=== PATIENT | male | born 1970 | race Caucasian/White ===

== ENCOUNTER → 2019-10-01 00:01 | Outpatient (BNVA) | payer SELFPAY | PROVIDERS: Family Provider Nurse Practitioner Family; PCP Nurse Practitioner Family; Visit Provider Registered Nurse | DX: E11.65 Type 2 diabetes mellitus with hyperglycemia (principal); I10 Essential (primary) hypertension | CPT/HCPCS: 83036 ==

== ENCOUNTER 2019-11-11 00:26 | Inpatient (IN) | payer SELFPAY ==
[2019-11-11] VITALS (24 sets, daily range): BP systolic 103–153; BP diastolic 50–113; PULSE 70–86; RESP 9–19; TEMP 36.4–37.1; O2SAT 93–96; BMI 35.6
--- NOTE | 2019-11-11 00:53 | PC.NURSE ---
Patient arrived to the floor via EMS from [facility]. Dr. Dowd notified of patient's arrival. Patient is not complaining of any pain at this time. Patient is on room air. Monitor shows SR with PVCs. Patient has been oriented to his room and has call light within reach. Patient is alert and oriented x4 and ambulatory.
--- NOTE | 2019-11-11 00:56 | USCV_ITS ---
Pierre Powellard Age: 49 Gender: M : 1970 Exam Date: 11/11/2019 07:26 Ordering Phys: Jessi Dowd MD Technologist: Errol Ribeiro [place] [facility] [place]: CHEST PAIN BP: 153 / 94 HR: 81 Rhythm: Sinus Technical Quality: Adequate MEASUREMENTS (Male / Female) Normal Values 2D ECHO LV Diastolic Diameter PLAX 4.7 cm 4.2 - 5.9 / 3.9 - 5.3 cm LV Systolic Diameter PLAX 3.7 cm IVS Diastolic Thickness 1.0 cm 0.6 - 1.0 / 0.6 - 0.9 cm IVS Systolic Thickness 1.6 cm LVPW Diastolic Thickness 1.1 cm 0.6 - 1.0 / 0.6 - 0.9 cm LVPW Systolic Thickness 1.4 cm LVOT Diameter 2.0 cm LV Ejection Fraction 2D Teich 42.1 % LV Ejection Fraction MOD 2C 57.0 % LV Ejection Fraction 2C AL 57.5 % LA Diameter 4.1 cm LA Width 4.6 cm LA Height 5.9 cm RA Width 3.5 cm RA Height 4.8 cm Aorta at Sinotubular Diameter 2.7 cm M-MODE LV Diastolic Diameter MM 5.1 cm 4.2 - 5.9 / 3.9 - 5.3 cm LV Systolic Diameter MM 4.2 cm LV Ejection Fraction MM Teich 36.1 % IVS Diastolic Thickness MM 1.1 cm 0.6 - 1.0 / 0.6 - 0.9 cm IVS Systolic Thickness MM 1.7 cm LVPW Diastolic Thickness MM 1.4 cm 0.6 - 1.0 / 0.6 - 0.9 cm LVPW Systolic Thickness MM 1.7 cm RV Diastolic Diameter MM 1.4 cm Aortic Annulus Diameter 3.9 cm LA Ao Ratio MM 1.0 MV E Point Septal Separation 1.7 cm DOPPLER AV Peak Velocity 127.0 cm/s LVOT Peak Velocity 93.0 cm/s AV Area Cont Eq vti 2.0 cm squared AV Area Cont Eq pk 2.4 cm squared MV Area PHT 5.0 cm squared Mitral E to A Ratio 1.1 MV E' Velocity 6.0 cm/s Mitral E to MV E' Ratio 17.1 Mitral E to LV E' Lateral Ratio 17.1 Mitral E to LV E' Septal Ratio 17.1 TR Peak Velocity 123.0 cm/s TR Peak Gradient 6.0 mmHg TV Peak E Velocity 85.0 cm/s Right Atrial Pressure 3.0 mmHg Pulmonary Artery Systolic Pressu 9.1 mmHg PV Peak Velocity 75.0 cm/s FINDINGS Left Ventricle Normal left ventricular size and systolic function, EF 50 %. Mild diffuse hypokinesia of the inferolateral wall segment. Relative hypokinesia of the basal septum.Grade I/IV diastolic dysfunction (abnormal relaxation filling pattern), normal to mildly elevated filling pressures. Right Ventricle Normal right ventricular size and systolic function. Right Atrium Normal right atrial size. Left Atrium Mildly increased left atrial size. Mitral Valve Thickened mitral valve. Mild mitral valve regurgitation. Aortic Valve No gross abnormalities noted Tricuspid Valve No gross abnormalities noted Pulmonic Valve No gross abnormalities noted Pericardium Normal pericardium without effusion. Aorta Normal ascending aorta dimension. CONCLUSIONS Normal left ventricular size and systolic function, EF 50 %. Mild diffuse hypokinesia of the inferolateral wall segment. Relative hypokinesia of the basal septum.Grade I/IV diastolic dysfunction (abnormal relaxation filling pattern), normal to mildly elevated filling pressures. Mildly increased left atrial size. Thickened mitral valve. Mild mitral valve regurgitation. There is no pericardial effusion. There are no intracardiac masses. No previous study is available for comparison. Dr Shavonne Li MD [facility] (Electronically Signed) Final Date: 11 November 2019 13:26 S
--- NOTE | 2019-11-11 00:56 | ECG_ITS ---
Measurements Intervals [place] Rate: 78 P: -15 AR: 151 QRS: 16 QRSD: 104 T: 100 QT: 368 QTc: 422 SINUS RHYTHM PROBABLE INFERIOR MYOCARDIAL INFARCTION [35 ms Q WAVE IN II/aVF], PROBABLY OLD No previous ECG available for comparison Electronically Signed On 11-11-2019 20:14:40 CDT by Ana Lindo M.D. [id number]
[2019-11-11] MEDS: sodium chloride 0.45% 1,000 ML 75 ML IV (01:43)
[2019-11-11 01:49] LABS: Troponin(5th) Baseline 189 ng/mL (0-15)
[2019-11-11 01:51] LABS: NT Pro B Type Natriuretic Pept 487 pg/mL (0-125)
--- NOTE | 2019-11-11 02:56 | ECG_ITS ---
Measurements Intervals [place] Rate: 86 P: 44 KS: 153 QRS: 4 QRSD: 101 T: 95 QT: 356 QTc: 427 SINUS RHYTHM WITH OCCASIONAL VENTRICULAR PREMATURE COMPLEXES PROBABLE INFERIOR MYOCARDIAL INFARCTION [35 ms Q WAVE IN II/aVF], PROBABLY OLD No previous ECG available for comparison Electronically Signed On 11-11-2019 20:18:52 CDT by Ana Lindo M.D. [id number]
--- NOTE | 2019-11-11 03:17 | P.HP_ITS ---
Providers/Chief Complaint Admitting Physician: Jessi Dowd MD Chief Complaint: elevated troponins History of Present Illness Irving Powell is a 49 year old male who presented to the emergency room at [facility] with a chief complaint of chest pain. For the last 3 weeks or so he has been having intermittent episodes of chest pain located in the center of his chest off and on. He works at the [email or web address] and has noticed pain at work that improves with resting. He also noticed some pain when he was riding around on [address] and other forms of exertion. Pain has generally resolved with rest. This evening patient was awakened from sleep with severe pain again. This time he was diaphoretic, nausea, had an episode of vomiting and noted palpitations which she described as his heart beating really hard. Denies any syncope. Pain radiated up into his teeth causing discomfort there. It was severe enough that he presented to the ER for evaluation. Initial EKG showed nonspecific changes. Baseline troponin at that facility was 178. Patient received aspirin and anticoagulation. He does have a prescription for sildenafil but he had not had any since November 03. He is not required any nitroglycerin this evening. He requested to be transferred to [facility] for further care and evaluation by cardiology. On arrival here, EKG was unchanged. Patient's primary risk factors include diabetes, obesity, hypertension. It sounds like he may have been diagnosed with high cholesterol in the past. His diabetes has been untreated lately. He has not tolerated Jardiance, glyburide, Januvia and metformin. Various side effects and issues. He also forgets to take medications frequently. His primary care provider attempted to start him on 1 of the weekly injections but it cost too much for him. He reports trying to follow diabetic diet. He chews tobacco. His mother has a history of coronary artery disease with several stents. Review of Systems Const: Denies: fever, chills or change in weight Eyes: Reports: blurry vision (sometimes); Denies: change in vision ENMT: Denies: throat pain or nasal discharge Card: Reports: chest pain, palpitations, swelling of feet/ankles and shortness of breath on exertion; Denies: syncope or shortness of breath when lying down Resp: Reports: shortness of breath; Denies: productive cough, non-productive cough or wheezing GI: Reports: nausea and vomiting; Denies: abdominal pain, diarrhea, constipation, blood in stool or black tarry stool : Denies: difficulty urinating Musc: Reports: back pain (not new) and joint pain (both knees always); Denies: joint swelling, redness or joint warmth Skin/Breast: Denies: rash or sores Neuro: Denies: headache, numbness in extremities or weakness in extremities Hen[place]/Lymph: Denies: easy bruising or easy bleeding Medications/Allergies Home Medications Medication Instructions Recorded Confirmed Last Taken Type omeprazole 20 mg PO BEDTIME 11/11/19 11/11/19 1 Day Ago History ~11/10/19 Allergies Allergy/AdvReac Type Severity Reaction Status Date / Time No Known Allergies Allergy Verified 11/11/19 00:33 Additional Medication Information Additional Medication Information: Home Medications Medication Instructions Recorded Confirmed Type hydrochlorothiazide 12.5 mg tablet 12.5 mg PO QAM 09/01/19 11/11/19 History telmisartan 80 mg tablet 80 mg PO DAILY 09/01/19 11/11/19 History sildenafil 50 mg tablet 50 - 100 mg PO DAILY PRN #15 tab 10/08/19 11/11/19 Rx omeprazole 20 mg PO BEDTIME 11/11/19 11/11/19 History PFSH Acute PFSH: Medical History (Updated 11/11/19 @ 03:52 by Jessi Dowd MD) Erectile dysfunction has sildenafil script GERD (gastroesophageal reflux disease) History of pancreatitis one time, noted when diagnosed with diabetes, no recurrance Hypertension Type 2 diabetes mellitus Family History (Updated 11/11/19 @ 03:53 by Jessi Dowd MD) Mother CAD (coronary artery disease) several stents Diabetes Denies family history of Chronic kidney disease (CKD) Social History (Updated 11/11/19 @ 03:55 by Jessi Dowd MD) Smoking and tobacco status: current every day smoker smokeless tobacco S mokeless tobacco user: chewing tobacco Alcohol intake: current Alcohol intake frequency: few times a month Substance/Drug Use: never Lives independently: Yes Supplemental PFSH Information: no surgery Vitals/I&O/Wt Last Vital Signs Temp 98.1 F 11/11/19 03:03 Pulse 75 11/11/19 03:03 Resp 13 11/11/19 03:03 BP 151/95 11/11/19 03:03 Pulse Ox 94 11/11/19 03:03 Weight last 48 hrs Weight 106.186 kg Physical Exam Const: COMMON NORMALS: no apparent distress and oriented x3 GENERAL APPEARANCE: well developed NUTRITIONAL APPEARANCE: obese centrally obese HENMT: COMMON NORMALS: normocephalic, head/scalp atraumatic and moist oral mucous membranes Eye: COMMON NORMALS: PERRL, EOMs intact bilaterally, conjunctivae normal and no scleral icterus Neck/C-Spine: COMMON NORMALS: no lymphadenopathy, supple and no JVD Resp: COMMON NORMALS: normal respiratory effort, no use of accessory muscles and clear to auscultation bilaterally Cardio: COMMON NORMALS: regular rate, regular rhythm, no gallops, no murmurs, no rub and peripheral pulses 2+ throughout GI: COMMON NORMALS: normal to inspection, nondistended, normoactive bowel sounds, soft to palpation, non-tender, no hepatosplenomegaly and no masses Back/Pelvis: COMMON NORMALS: no CVA tenderness Extremity: COMMON NORMALS: no clubbing, cyanosis or edema OTHER: Both knees with bony prominence at the proximal tibia. Left is mildly tender but no erythema or warmth noted. No bogginess noted to either knee. Neuro: COMMON NORMALS: moves all extremities and no sensory deficits noted Skin: GENERAL SKIN EXAM: no rashes or lesions noted Data : 11/11/19 03:03 Other Labs: Labs from outside facility are as follows: White count 8000, H&H 16/47, platelet count 155, 62% neutrophils and 24% lymphocytes Sodium 138, potassium 4.1, chloride 99, CO2 27, calcium 9.6, BUN 15, creatinine 1.29, glucose 255, total protein 7.7, albumin 4.7, total bilirubin 0.7, alkaline phosphatase 100, AST 22, ALT 28, lipase 38 proBNP 462 Baseline troponin at outside facility was 178 PTT was 29 Chest x-ray was interpreted by radiology at outside facility as no acute cardiopulmonary process Laboratory Tests 06/04/12 03:32 Triglycerides 324 H Cholesterol 163 LDL Cholesterol 108 HDL Cholesterol 23 L LDL/HDL Ratio 4.70 H Cholesterol/HDL Ratio 7.09 H Laboratory Tests 10/01/19 Unknown Hemoglobin A1c 9.3 H A&P Assessment and plan (1) NSTEMI (non-ST elevated myocardial infarction): Status: Acute Code(s): I21.4 - Non-ST elevation (NSTEMI) myocardial infarction (2) Hypertension: Status: Chronic Qualifiers: Hypertension type: essential hypertension Qualified Code(s): I10 - Es sential (primary) hypertension Code(s): I10 - Essential (primary) hypertension (3) Type 2 diabetes mellitus: Currently without adequate control Status: Chronic Qualifiers: Diabetes mellitus complication status: with hyperglycemia 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: without [facility] use Qualified Code(s): E11.65 - Type 2 diabetes mellitus with hyperglycemia Code(s): E11.9 - Type 2 diabetes mellitus without complications (4) GERD (gastroesophageal reflux disease): Status: Chronic Qualifiers: Esophagitis presence: esophagitis presence not specified Qualified Code(s): K21.9 - Gastro-esophageal reflux disease without esophagitis Code(s): K21.9 - Gastro-esophageal reflux disease without esophagitis (5) Nicotine dependence, chewing tobacco, uncomplicated: Status: Acute Code(s): F17.220 - Nicotine dependence, chewing tobacco, uncomplicated Additional A&P Information Admit to inpatient Follow serial cardiac enzymes Changed to Lovenox Continue aspirin Plavix load Beta-blockade Statin therapy Check lipid panel Sliding scale insulin currently, need to see what we can do to facilitate getting better controlled diabetes chronically. Cost of medications is a sig nificant issue for patient. Hemoglobin A1c was checked in September and was 9.3 so I have not repeated that this visit. Ideally needs to give up all forms of tobacco use Check echocardiogram in the morning Monitor for any arrhythmias Will consult cardiology in the morning Keep n.p.o. for possible cardiac catheterization Reviewed with patient the importance of not mixing sildenafil with nitroglycerin as combination could cause severe drop in blood pressure. He expressed understanding Supportive care otherwise Full code Plans were discussed with patient and he was given an opportunity to ask q uestions. Attestations Medical Necessity Statement*: Anticipated stay greater than 2 midnights in a patient presenting with a non-ST elevation [place] who will likely require further cardiac evaluation and initiation of new medications. Plans are as noted. 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
[2019-11-11] MEDS: enoxaparin 120 mg/0.8 mL Syringe 110 MG SUBCUT (03:31)
[2019-11-11 03:59] LABS: Alanine Aminotransferase 26 U/L (0-41); Albumin Level 4.2 g/dL (3.5-5.2); Alkaline Phosphatase 81 IU/L (40-130); Anion Gap 13.3 (5-19); Aspartate Amino Transferase 22 U/L (0-40); Blood Urea Nitrogen 15 mg/dL (6-20); Calcium 9.7 mg/dL (8.5-10.5); Carbon Dioxide 29 mmol/L (22-29); Chloride 103 mmol/L (98-107); Globulin 2.5 g/dL (1.3-4.6); Glomerular Filtration Rate 64.4 mL/min (90-130); Glucose 146 mg/dL (65-115); Magnesium 2.2 mg/dL (1.7-2.3); Osmolality Calculated 291 mOsm/kg (285-295); Potassium 4.3 mmol/L (3.5-5.1); Sodium 141 mmol/L (136-145); Total Bilirubin 0.7 mg/dL (0.15-1.2); Total Protein 6.7 g/dL (6.6-8.7)
[2019-11-11 04:02] LABS: Troponin 5 2HR 229.3 ng/mL (0-15); Troponin 5 2HR Delta 40.3 ABS# (0-10)
[2019-11-11] MEDS: clopidogrel 300 mg Tablet 600 MG PO (05:49)
[2019-11-11 06:26] LABS: Glucose Point of Care 146 mg/dL (70-110)
--- NOTE | 2019-11-11 06:56 | ECG_ITS ---
Measurements Intervals [place] Rate: 84 P: -19 SD: 152 QRS: 19 QRSD: 102 T: 101 QT: 368 QTc: 437 SINUS RHYTHM WITH OCCASIONAL VENTRICULAR PREMATURE COMPLEXES NONSPECIFIC ST & T-WAVE ABNORMALITY No previous ECG available for comparison Electronically Signed On 11-11-2019 20:19:03 CDT by Ana Lindo M.D. [id number]
[2019-11-11 07:18] LABS: Chol HDL Ratio 5.76 mg/dL (1.0-5.00); Cholesterol 167 mg/dL (0-200); HDL Cholesterol 29 mg/dL (60-100); LDL Cholesterol Calculated 74 mg/dL (50-129); LDL HDL Ratio 2.55 RATIO (0.00-3.22); Triglycerides 319 mg/dL (0-150)
--- NOTE | 2019-11-11 07:23 | P.CONIM_ITS ---
Providers/Reason For Consult Consulting Physican/Specialty*: JUAN Li MD/cardiology Reason for Consult*: Patient with chest pain and elevated troponin T Attending Physician: Jessi Dowd MD Primary Care Provider: Jonh Howe History of Present Illness History of Present Illness Irving Powell is a 49 year old male with a history of type 2 diabetes, dyslipidemia, essential benign hypertension, smoking abuse is presenting with complaints of chest pain off and on for the last 2 weeks. The patient apparently has been having episodes of chest pains with or without exertion for the last 2 weeks at least a dozen times. Each episodes will last anywhere from 5 to 20 minutes. He described it as a burning/heavy sensation in the mid substernal area radiating somewhat across the chest associated with the cold sweats, shortness of breath and some nausea. Last evening, he had an episode of severe chest pain which woke him up from sleep. The pain was radiating jaws/teeth. He may have had some associated palpitation. He also had a bout of vomiting. No other associated symptoms or radiation of pain. He has no previous history for any coronary artery disease, myocardial infarction or congestive heart failure. His diabetes is being controlled with diet alone. He was tried on Jardiance, glyburide, metformin and Januvia. Apparently he had various kinds of side effects and for that reason, was taken off these medications. He has a history of smoking abuse, 1 pack a day for 30 years also, which she quit 3 months ago. His mother had myocardial infarction in her 40s. No other relevant family history. He was initially evaluated at the [facility]. He was found to have elevated troponin T. He was started on aspirin and Lovenox. Subsequently was transferred to our facility. He was given a loading dose of Plavix. Currently he is pain-free. At the time of my examination, patient has no specific symptoms except for feeling tired and somewhat sleepy. Review of Systems Narrative: CONSTITUTIONAL: No fever or chills. Has been having easy fatigability and some amount of dyspnea on exertion. EYES: No blurring of vision or other visual disturbances lately. ENT: No hoarseness of voice, auditory disturbances or sore throat. CARDIOVASCULAR: As mentioned above. RESPIRATORY: Has a history of shortness of breath and wheezing with the smoking. Since he quit walking, significant improvement of the wheezing. GASTROINTESTINAL: No hematemesis or melena. GENITOURINARY: No dysuria or hematuria. History of impotence and has been using Viagra. Has not been using this since 11/04/2019. INTEGUMENTARY: No skin rashes or history of skin cancer. NEURO: No transient ischemic attacks or amaurosis. PSYCHIATRIC: No history of psychosis or major depression. HEMATOLOGIC: No bleeding disorders or significant anemia. ENDOCRINE: No history of polyuria or polydipsia. History of diabetes as mentioned above. MUSCULOSKELETAL: No recent joint pain or swelling. ALLERGY/IMMUNOLOGY: As mentioned above. Meds/Allergies Home Medications and Allergies Home Medications Medication Instructions Recorded Confirmed Type hydrochlorothiazide 12.5 mg tablet 12.5 mg PO QAM 09/01/19 11/11/19 History telmisartan 80 mg tablet 80 mg PO DAILY 09/01/19 11/11/19 History sildenafil 50 mg tablet 50 - 100 mg PO DAILY PRN #15 tab 10/08/19 11/11/19 Rx omeprazole 20 mg PO BEDTIME 11/11/19 11/11/19 History aspirin 81 mg PO DAILY 30 Days #30 tab 11/12/19 Rx atorvastatin 40 mg PO BEDTIME 30 Days #30 tab 11/12/19 Rx clopidogrel 75 mg PO DAILY 30 Days #30 tab 11/12/19 Rx glyburide 5 mg PO BID 30 Days #60 tab 11/12/19 Rx losartan 100 mg PO DAILY 30 Days #60 tab 11/12/19 Rx magnesium oxide 400 mg PO BID 30 Days #60 tab 11/12/19 Rx metoprolol tartrate 25 mg PO BID 30 Days #60 tab 11/12/19 Rx omeprazole 20 mg PO BEDTIME 11/12/19 11/11/19 History pantoprazole 40 mg PO BEDTIME 30 Days #30 tab 11/12/19 Rx spironolactone [Aldactone] 25 mg PO DAILY 30 Days #30 tab 11/12/19 Rx telmisartan 80 mg tablet 80 mg PO DAILY 11/12/19 11/11/19 History Allergies Allergy/AdvReac Type Severity Reaction Status Date / Time No Known Allergies Allergy Verified 11/11/19 00:33 Current Medications Current Medications Generic Name Dose Route Start Last Admin Trade Name Freq PRN Reason Stop Dose Admin Sodium Chloride 1,000 mls @ 75 mls/hr 11/11/19 01:00 11/11/19 01:43 Sodium Chloride 0.45% IV 75 mls/hr .[id number] CASSIE Administration Insulin Aspart 0 unit 11/11/19 08:00 11/11/19 07:12 Novolog SUBCUT 2 unit TIDWM CASSIE Administration Protocol PFSH Acute PFSH: Medical History (Updated 11/12/19 @ 11:00 by Lauren Kirby MD) Benign essential hypertension with target blood pressure below 140/90 Dyslipidemia associated with type 2 diabetes mellitus Erectile dysfunction has sildenafil script GERD (gastroesophageal reflux disease) History of pancreatitis one time, noted when diagnosed with diabetes, no recurrance Hypertension -VSS, continue to monitor -continue antihypertensives, goal BP <140/90 Type 2 diabetes mellitus -has known poorly-controlled NIDDM type II, A1c-9.3 -accuchecks, ISS -cardiac diabetic diet as tolerated -has been unable to tolerate Jardiance, glyburide, Januvia, metformin and n on-compliant otherwise Family History (Updated 11/11/19 @ 03:53 by Jessi Dowd MD) Mother CAD (coronary artery disease) several stents Diabetes Denies family history of Chronic kidney disease (CKD) Social History (Updated 11/11/19 @ 03:55 by Jessi Dowd MD) Smoking and tobacco status: current every day smoker smokeless tobacco Smokeless tobacco user: chewing tobacco Alcohol intake: current Alcohol intake frequency: few times a month Substance/Drug Use: never Lives independently: Yes Vitals/I&O/Wt Last Vital Signs Temp 98.1 F 11/11/19 03:03 Pulse 82 11/11/19 07:22 Resp 14 11/11/19 07:22 BP 153/94 11/11/19 07:22 Pulse Ox 96 11/11/19 07:22 Weight last 48 hrs Weight 233 lb 4.8 oz Weight 234 lb 1.6 oz Physical Exam Narrative: EXAM NARRATIVE: GENERAL: The patient is alert and oriented times three. Not in any acute distress. Moderately obese HEENT: No significant pallor, icterus or lymphadenopathy. The pupils are reactant to light. Oral cavity: There are no mucous membrane lesions. Funduscopic examination: The fundus is not visualized NECK: Trachea appears to be central. No masses noted. No JVD or thyromegaly appreciated. No carotid bruit. RESPIRATORY: Chest is symmetrical. No intercostals muscle retraction or any acce ssory muscle activation. There is no chest wall tenderness. Breath sounds are heard bilaterally. No rales or rhonchi heard. No evidence of any consolidation. BREASTS: Deferred. HEART: The PMI is in the 5th left intercostals space just inside the midclavicular line. No palpable precordial events. S1 and S2 are normal. No S3 or S4 heard. No pericardial rub or any click heard. ABDOMEN: No vessel pulsations or distention. No tenderness. No organomegaly appreciated. No abdominal bruit. Bowel sounds are normally heard. : Deferred. RECTAL: Deferred. LYMPHATIC: No lymphadenopathy noted in the neck or groin. EXTREMITIES: No edema or cyanosis. No clubbing. The pulses are symmetrical bilaterally. The radial, femoral, dorsalis pedis and the posterior tibial pulses are palpated and found to be in good volume and amplitude. MUSCULOSKELETAL: No acute joint deformities or swelling. SKIN: There are no significant rashes or ecchymosis NEUROPSYCHIATRIC: The patient is alert and oriented x3. Appears to be in a good mood. The higher functions are grossly within normal limits. No tremors or rigidity noted. Data EKG^: EKG 1: My Interpretation: Normal sinus rhythm with diffuse nonspecific ST-T changes. A&P Assessment and plan (1) NSTEMI (non-ST elevated myocardial infarction): Patient is a clinical features are consistent with again acute coronary syndrome complicated with a non-ST elevation myocardial infarction. Hemodynamically seems to be stable. May be appropriate to continue with the Lovenox, aspirin, Plavix, beta-doron and statin. An echocardiogram be appropriate to evaluate LV function and rule out other pathologies. Status: Acute Code(s): I21.4 - Non-ST elevation (NSTEMI) myocardial infarction (2) Benign essential hypertension with target blood pressure below 140/90: Currently he is of stage II hypertension. The antihypertensive med ications need to be optimized. Status: Acute Code(s): I10 - Essential (primary) hypertension (3) Dyslipidemia associated with type 2 diabetes mellitus: Patient may be continued on the Lipitor. Status: Acute Code(s): E11.69 - Type 2 diabetes mellitus with other specified complication; E78.5 - Hyperlipidemia, unspecified (4) Type 2 diabetes mellitus: Aggressive management of the hyperglycemia would be appropriate. 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 Thank you for the opportunity to evaluate this patient make these recommendations. Coding Level of Care Code Acute Director Of Midwifery/Staff Midwife for [facility] Fwd Diagnoses NSTEMI (non-ST elevated myocardial infarction) I21.4 Benign essential hypertension with target blood pressure below 140/90 I10 Dyslipidemia associated with type 2 diabetes mellitus E11.69; E78.5 Type 2 diabetes mellitus E11.65 Diabetes mellitus complication status: with hyperglycemia Diabetes mellitus correction insulin use: without correction use
[2019-11-11 07:47] LABS: Troponin 5 6HR 242.5 ng/mL (0-15); Troponin 5 6HR Delta 53.5 ng/L (0-12)
[2019-11-11] MEDS: nitroglycerin 1 gm/inch oint Pkt 1 INCH TOPICAL ×2 (08:11→13:02)
[2019-11-11] MEDS: sodium chloride 0.45% 1,000 ML 100 ML IV ×2 (08:11→13:02)
[2019-11-11] MEDS: losartan 50 mg Tablet 100 MG PO (08:11)
[2019-11-11] MEDS: metoprolol tartrate 25 mg Tablet PO (08:12)
[2019-11-11] MEDS: aspirin 81 mg Chew Tablet PO (08:12)
--- NOTE | 2019-11-11 11:22 | PC.CHAP ---
Pastoral Care Encounter/Spiritual Assessment Type of Contact [] Declined supervisor sulfuric acid plant visit [] Patient/Family/Request visit [] Outpatient visit [] Follow-up visit [] Physician referral [] Code/Alert [] Routine visit [] Staff referral [] Actively dying [] Patient sleeping [] Family support [] [] Out of room [] Palliative care [] [] Receiving care in room [] Pre-surgical visit [] Trauma [] Long length of stay [] ICU visit [] Other: Asleep Relational/Emotional Strength [] Patient feels connected with others/family/visitors/staff [] Distress [] Loneliness/isolation [] Abandonment Spirituality of Patient [] Person of Geraldine [] Attends Mormonism of their Geraldine [] Believes in Prayer [] Reads Bible or Zoroastrian materials [] There are Spiritual issues to be addressed Sales Operations Consultant Interventions [] Prayer [] Active listening [] Non-anxious presence [] Spiritual/emotional support [] Crisis/trauma care [] Spiritual counseling [] Bereavement support [] Provided bereavement packet [] Provided Bible/devotional materials [] Provided toy/stuffed animal, coloring book to patient or family member [] Provided Communion [] Anointing/Gary [] Salvation [] Completed spiritual assessment [] Other: Impact on Illness or Injury [] Angry [] Fearful [] Anxious [] Often cries [] Exhaustion [] Unable to work [] Unable to attend jewish [] Unable to walk/stand [] Unable to read [] Unable to drive [] Unable to eat/drink [] Unable to sleep [] Unable to be with family [] Patient intubated [] Other: Summary Fellow up Time spent with patient 5 mins
[2019-11-11 11:54] LABS: Glucose Point of Care 165 mg/dL (70-110)
--- NOTE | 2019-11-11 11:59 | PM.PN ---
Subjective Subjective: Interval history: Chart reviewed, briefly discussed with Dr. Li this AM, plan for cath later today. VSS. Patient resting in bed, denies chest pain currently. Medications: Reviewed: Yes Medication Review Details: Active Medications Generic Name Dose Route Start Last Admin Trade Name Freq PRN Reason Stop Dose Admin Acetaminophen 650 mg 11/11/19 00:56 Tylenol PO Q6H PRN Mild/Mod Pain Or Temp >/= 101 Aspirin 81 mg 11/11/19 09:00 11/11/19 08:12 Aspirin Chewable PO 81 mg DAILY CASSIE Administration Atorvastatin Calci um 40 mg 11/11/19 21:00 Lipitor PO BEDTIME CASSIE Clopidogrel Bisulf ate 75 mg 11/12/19 09:00 Plavix PO DAILY CASSIE Dextrose 25 ml 11/11/19 00:56 D50w IVP ONCE PRN hypoglycemia prot ocol Protocol Dextrose 50 ml 11/11/19 00:56 D50w IVP PRN PRN hypoglycemia prot ocol Protocol Enoxaparin Sodium 110 mg 11/11/19 15:30 Lovenox SUBCUT Q12H CASSIE Glucagon 1 mg 11/11/19 00:56 Glucagen IM ONCE PRN Adult Acute Hypog lycemia Prot. Protocol Dextrose 500 mls @ 100 mls /hr 11/11/19 00:56 D5w IV ONCE PRN Adult Acute Hypog lycemia Prot Protocol Sodium Chloride 1,000 mls @ 100 m ls/hr 11/11/19 07:30 11/11/19 08:11 Sodium Chloride 0.45% IV 100 mls/hr .Q10H CASSIE Administration Insulin Aspart 0 unit 11/11/19 21:00 Novolog SUBCUT BEDTIME CASSIE Protocol Insulin Aspart 0 unit 11/11/19 08:00 11/11/19 11:44 Novolog SUBCUT 2 unit TIDWM CASSIE Administration Protocol Losartan Potassium 100 mg 11/11/19 09:00 11/11/19 08:11 Cozaar PO 100 mg DAILY CASSIE Administration Metoprolol Tartrat e 25 mg 11/11/19 09:00 11/11/19 08:12 Lopressor PO 25 mg BID CASSIE Administration Morphine Sulfate 4 mg 11/11/19 00:56 Morphine IVP Q4H PRN SEVERE PAIN Nitroglycerin 0.4 mg 11/11/19 00:56 Nitrostat SUBLINGUAL Q5M PRN CHEST PAIN Nitroglycerin 1 inch 03/24/20 07:30 11/11/19 08:11 Nitro-Bid TOPICAL 1 inch Q6H CASSIE Administration Ondansetron HCl 4 mg 11/11/19 00:56 Zofran IVP Q8H PRN vomiting, or N/V if npo Pantoprazole Sodiu m 40 mg 11/11/19 21:00 Protonix PO BEDTIME CASSIE No Known Allergies Allergy (Verified 11/11/19 00:33) Vitals/I&O/Wt Last Vital Signs Temp 97.8 F 11/11/19 11:09 Pulse 76 11/11/19 11:36 Resp 18 11/11/19 11:09 BP 115/74 11/11/19 11:09 Pulse Ox 96 11/11/19 11:36 Weight last 48 hrs Weight 105.823 kg Weight 106.186 kg Physical Exam Const: COMMON NORMALS: no apparent distress and oriented x3 GENERAL APPEARANCE: cooperative and comfortable NUTRITIONAL APPEARANCE: obese morbidly obese ORIENTATION/CONSCIOUSNESS: Yes awake HENMT: COMMON NORMALS: normocephalic, head/scalp atraumatic, hearing grossly normal bilaterally and moist oral mucous membranes HEAD & SCALP: normocephalic and atraumatic Eye: COMMON NORMALS: PERRL, EOMs intact bilaterally and conjunctivae normal CONJUNCTIVA: Yes conjunctivae normal PUPIL: Yes PERRL Neck/C-Spine: COMMON NORMALS: full ROM GENERAL: Yes normal visual inspection and Yes trachea midline Resp: COMMON NORMALS: normal respiratory effort, no retractions, no use of accessory muscles and clear to auscultation bilaterally EFFORT & INSPECTION: Yes able to speak in complete sentences, Yes symmetric chest movement and No tachypneic AUSCULTATION: clear to auscultation bilaterally Cardio: COMMON NORMALS: regular rate, regular rhythm, S1 normal heart sound, S2 normal heart sound and no murmurs RATE: regular rate RHYTHM: regular rhythm HEART SOUNDS: S1 normal and S2 normal GI: COMMON NORMALS: normal to inspection, nondistended, normoactive bowel sounds, soft to palpation and non-tender INSPECTION: Yes central obesity PALPATION: Yes soft Extremity: COMMON NORMALS: normal to inspection, full ROM and no clubbing, cyanosis or edema; negative for no pedal edema Neuro: COMMON NORMALS: oriented x3, moves all extremities, no focal motor deficits, no sensory deficits noted and gait normal Psych: COMMON NORMALS: mental status grossly normal, thought process normal, cooperative, affect normal and speech normal SPEECH: Yes normal speech THOUGHT PROCESS: normal thought process Skin: COMMON NORMALS: no rashes or lesions noted, no jaundice, no petechiae and no mottling GENERAL SKIN EXAM: no rashes or lesions noted Data : 11/11/19 03:03 A&P Assessment and plan (1) NSTEMI (non-ST elevated myocardial infarction): -presented as transfer from [facility], presented there for chest pain -noted troponin elevation with significant delta -Cardio consult by Dr. Guillermo vega; plan for cath today -Echo: EF=50%, mild diffuse hypokinesia of inferolateral wall, relative hypokinesia of basal septum, G1DD, mild MR -no noted significant ECG changes -telemetry monitoring -VSS, continue to monitor -continue ASA, statin, Plavix, therapeutic Lovenox, Metoprolol -noted A1c, lipid panel Status: Acute Code(s): I21.4 - Non-ST elevation (NSTEMI) myocardial infarction (2) Hypertension: -VSS, continue to monitor -continue antihypertensives, goal BP <140/90 Status: Chronic Qualifiers: Hypertension type: essential hypertension Qualified Code(s): I10 - Essential (primary) hypertension Code(s): I10 - Essential (primary) hypertension (3) Type 2 diabetes mellitus: -has known poorly-controlled NIDDM type II, A1c-9.3 -accuchecks, ISS -currently NPO for cath -has been unable to tolerate Jardiance, glyburide, Januvia, metformin and non-compliant otherwise Status: Chronic Qualifiers: Diabetes mellitus complication status: with hyperglycemia Diabetes mellitus intermediate insulin use: without intermediate use Qualified Code(s): E11.65 - Type 2 diabetes mellitus with hyperglycemia Code(s): E11.9 - Type 2 diabetes mellitus without complications Additional A&P Information -Morbid obesity: BMI-36 kg/m2 -Hyperlipidemia; on statin -Erectile dysfunction; on sildenafil; on hold -GI ppx with PPI -DVT ppx not needed as on therapeutic lovenox -Dispo: home -Code status: FULL code Attestations Medical Necessity Statement*: Patient requires hospitalization for continued management of NSTEMI pending cath. Time Spent in Patient Care: 16 - 35 minutes (>than 50% of time spent in counselling and/or direct pt care on unit). Coding Level of Care Code Acute Inspector Shells for Chg Fwd Exam Comprehensive Diagnoses NSTEMI (non-ST elevated myocardial infarction) I21.4 Hypertension I10 Hypertension type: essential hypertension Type 2 diabetes mellitus E11.65 Diabetes mellitus complication status: with hyperglycemia Diabetes mellitus termite control representative insulin use: without termite control representative use
[2019-11-11 15:13] LABS: Troponin T (5th) Once 261 ng/mL (0-15)
[2019-11-11] MEDS: diphenhydrAMINE 50 mg Capsule PO (15:37)
[2019-11-11] MEDS: sodium chloride 0.9% 1,000 ML 50 ML IV (15:42)
--- NOTE | 2019-11-11 16:26 | XACV_ITS ---
Exam Room: [facility] Ht: 173 cm Wt: 106 kg BSA: 2.29 m2 Gender: Male : 1970 Any Known Allergies: No known allergies Exam Priority: Routine Procedure(s): Procedure Description: Diagnostic procedure Procedure Description: PCI procedure Procedure Description: Left ventriculography Procedure Description: Drug Eluting Coronary Stent Procedure Description: PTCA Procedure Description: Miscellaneous Procedure Description: ACT Procedure Description: Coronary Angiography Diagnostic Cath Status: Urgent Diagnostic Findings The left main is a medium-sized vessel with no significant stenotic lesions. The left and descending artery is a medium caliber vessel which was found to have moderate diffuse disease in the proximal segment range anywhere from 50 to 60%. The mid and distal LAD was found to have mild diffuse disease. The left circumflex artery was found to have a high-grade lesion in the midsegment with a possible filling defect. Then the artery appears to bifurcate. Just before the bifurcation, there is a 70 to 80% stenosis. No other significant stenotic lesions were noted. The right coronary artery is a medium caliber vessel which was found to have severe diffuse disease in the proximal and mid segment. The appears to be subtotally occluded distally. Grade 2 [id number] collaterals are noted during the left coronary injection. The LV gram was performed in the ANGEL position. The LV cavity appears to be mildly dilated. There was diffuse hypokinesia of the left ventricle with an ejection fraction of around 35 to 40%. The LVEDP was 28 mmHg. No filling defects were noted. PCI Status: Elective PCI Indication: NSTE - ACS Interventional Findings Mid Circumflex Coronary Artery: 95% stenosis treated with AB MINI TREK 2.00X20 RX BALLOON, AMINA Keith FRANKO 2.75X26 PRATEEK, and AMINA MIRELES EUPHORA RX 3.00B23DP BALLOON. 0% residual stenosis, INESSA: 3 flow. Conclusions This is a 49-year-old white male with a history of hypertension, diabetes and dyslipidemia, presenting with unstable anginal symptoms. Clinical features of non-ST elevation myocardial infarction. Cardiac catheterization revealed the following findings. High-grade lesion in the mid circumflex artery. Severe diffuse disease right coronary artery with subtotal occlusion distally. Grade 2 [id number]-[id number] collaterals. Moderate diffuse disease in the proximal and mid LAD. LV gram revealing ejection fraction of 35 to 40%. LVEDP of 28 mmHg. Mid Circumflex Coronary Artery was treated with two Balloon and Drug Eluting Stent. Recommendations Cardiac catheterization data was reviewed and discussed with Dr. Lindo. It was thought to be appropriate to consider PCI of the mid circumflex lesion. Dr. Lindo took over further management of this patient at this point. 1-Return to inpatient for close monitoring and routine cath care2-Risk factor modification for secondary prevention3-Statin and aspirin 81 mg life-long, if tolerated4-Continue DAPT for at least one year. We will assess at the end of one year again to continue if further or not5-Continue optimal medical management6-Follow up with Dr. Li in four weeks and your primary care in 10 days. Diagnostic RX Recommendation: PCI w/o planned CABG Ventriculography Ejection Fraction: 40.0 % Pressures Phase:Rest AO : 113 mmHg / 84 mmHg ( 97 mmHg ) @ 12:26:00 PM 164 mmHg / 102 mmHg ( 131 mmHg ) @ 12:43:00 PM 169 mmHg / 103 mmHg ( 130 mmHg ) @ 12:43:00 PM 142 mmHg / 106 mmHg ( 123 mmHg ) @ 1:28:00 PM LV : 161 mmHg / 8 mmHg / @ 12:39:00 PM 151 mmHg / 11 mmHg / @ 12:42:00 PM 164 mmHg / 11 mmHg / @ 12:43:00 PM 166 mmHg / 11 mmHg / @ 12:43:00 PM Valves Phase:DefaultPhase AV : 0.0 mmHg @ 6:57:15 PM AV Mean Gradient: 0.0 mmHg @ 6:57:15 PM 0.0 mmHg @ 6:57:15 PM Clinical Evaluation EBL: 5mL-10mL Procedural Details Procedure Consent Obtained. Pre-Procedure Time Out. Identified patient by full name and date of as verbalized by the patient/guarantor. Does the consent match the physician's order: Yes. Accurate & Complete Informed Consent: Yes. Inpatient/Outpatient History & Physical on Chart: Yes. If H&P is completed, is and addenduem needed: No; If yes, is the addendum complete: N/A. Visualize and Verify Site with Patient/Guarantor: N/A. Relevant Radiology Images available: Yes. Pre-op teaching completed and patient verbalized understanding. The risks, benefits, and alternatives of sedation and/or procedure were discussed by physician. The patient agrees to continue. Procedure started. [facility] Clinical Fraility Score: 2: Well. Photographic Colorist Indications: Suspected CAD. Chest Pain Symptom Assessment: Typical Angina Symptoms. Cardiovascular Instability: No. Correct patient, site and procedure confirmed by cath team. Current diagnosis: Stable angina. PERRLA. Strong, equal hand android platform developer bilaterally. Lungs clear x 5 lobes. IV Site on Arrival: 20 gauge in the right forearm. IV Fluids: 0.9% NaCl at KVO. 0 mL infused prior to brine room laborer. Pre Procedural Pulses: bilateral dorsalis pedis was 3+. Pre Procedural Pulses: bilateral posterior tibial was 3+. Pre Procedural Pulses: bilateral radial was 3+. Oxygen started at 2liters/min via nasal canula. bilateral groins was prepped with chloroprep then draped in the usual sterile fashion. right radial was prepped with chloroprep then draped in the usual sterile fashion. Baseline sample Acquired. HR: 79 BPM. Physician notified. Physician arrived. Equipment: 5F - Radial. Cardiac Cath Pack. ACIST Manifold Kit Model BT 2000. Heparinized Saline (2 units/mL), 1000 mL bag. Physician scrubbed in. Immediate Pre-Procedure Time Out. Correct Patient: Yes; Correct Procedure: Yes; Correct Site: Yes; Correct Patient Position: Yes; Correct Supplies: Yes; Dried Flammable Prep: Yes; Blood Products Available: No;. Lidocaine 1% infiltrated to the right radial. Arterial access obtained. A 5 citizen of [place] David catheter in over wire. Catheter out. A 5 citizen of [place] TIG catheter in over wire. Multiple views taken of left coronary artery. Call made to Dr. Lindo. Catheter redirected to the RCA. Multiple views taken of right coronary artery. A 5 citizen of [place] Angled Pig catheter in over wire. EDP Sample taken: LV 161/8,30; HR: 90 BPM; SpO2: 98%. EDP Sample taken: LV 151/11,26; HR: 84 BPM; SpO2: 99%. LV gram performed in ANGEL @ 10 mL/second for a total of 30 mL. EDP Sample taken: LV 164/11,32; HR: 78 BPM; SpO2: 99%. Pullback taken: LV 166/11,33; AO 164/102(131); Mean: 0mmHg, Peak to Peak: 0mmHg, SEP: 7sec/min; HR: 87 BPM; SpO2: 99%. Sheath flushed periodically to maintain patency. Dr. Lindo arrived. Physicians reviewed films. Dr. Lindo scrubbed in. 6 citizen of [place] XB 3.5 guide catheter was inserted over the wire. Guide catheter out. 6 citizen of [place] JL 3.5 guide catheter was inserted over the wire. [place] guidewire was advanced through the guide catheter to lesion in the Circ. Inflation number : 1 A AB MINI TREK 2.00X20 RX BALLOON was prepped and advanced across the Mid CX , then inflated to 8 DARRIUS for 0:27 seconds. Inflation number: 2 The AB MINI TREK 2.00X20 RX BALLOON was reinflated across the Mid CX, to 8 DARRIUS for 0:15 seconds. Balloon out. Inflation Number : 3 A AMINA Keith FRANKO 2.75X26 PRATEEK -Lot Number# [id number] was prepped and advanced across the Mid CX. The stent was deployed at 12 DARRIUS for 0:31 seconds. Stent expiration date: 11/21/2020. Stent balloon out over wire. Inflation number : 4 A AMINA MIRELES EUPHORA RX [id number] BALLOON was prepped and advanced across the Mid CX , then inflated to 10 DARRIUS for 0:19 seconds. Inflation number: 5 The MDT ALINE EUPHORA RX [id number] BALLOON was reinflated across the Mid CX, to 7 DARRIUS for 0:14 seconds. Results checked. Wire out. ACT drawn. Results 178 seconds. Therapeutic limits - pre-heparin administration 90-150 seconds and monitoring heparin during a vascular procedure >250 seconds. TR band placed. Hemostasis obtained. A TR Band was successful obtaining hemostatsis at the Right Radial artery insertion site. Post Procedure: Pulses reassessed and unchanged. PERRLA. Strong, equal hand android platform developer bilaterally. No VTE prophylaxis required. Medication's Wasted: Lidocaine 1% = 18 mL. Medication's Wasted: Nitro = 49.8 mg. Medication's Wasted: Heparin = 4000 units. Medication's Wasted: Other = versed 1 mg. Total IV fluids: 100 mL. Vital chart was stopped. Contrast type used: Omnipaque 300 mgI/mL, 500 mL bottle. PCI Indication: NSTE. Post-op diagnosis: Multivessel CAD. Complications: None. Estimated blood loss: 5mL-10mL. Procedure completed. Patient transferred by wheelchair to 1st floor. Site: Right Radial artery Sheath Size: 6 Fr Hemostasis Method: TR Band Hemostasis Success: Successful Procedure Medications Start: 5:14 PM Stop: 5:14 PM Medication: Versed Amount: 1 mg Route: I.V. Start: 5:14 PM Stop: 5:14 PM Medication: Fentanyl Amount: 50 mcg Route: I.V. Start: 5:16 PM Stop: 5:16 PM Medication: Versed Amount: 1 mg Route: I.V. Start: 5:19 PM Stop: 5:19 PM Medication: Verapamil Amount: 5 mg Route: I.A. Start: 5:19 PM Stop: 5:19 PM Medication: Fentanyl Amount: 50 mcg Route: I.V. Start: 5:20 PM Stop: 5:20 PM Medication: Nitrogylcerin Amount: 200 mcg Route: I.A. Start: 5:22 PM Stop: 5:22 PM Medication: Heparin Amount: 5000 units Route: I.V. Start: 5:41 PM Stop: 5:41 PM Medication: Nitrogylcerin Amount: 2 Sprays Route: I.A. Start: 6:18 PM Stop: 6:18 PM Medication: Heparin Amount: 5000 units Route: I.V. Start: 6:23 PM Stop: 6:23 PM Medication: Fentanyl Amount: 50 mcg Route: I.V. Start: 6:34 PM Stop: 6:34 PM Medication: Versed Amount: 1 mg Route: I.V. Start: 6:37 PM Stop: 6:37 PM Medication: Fentanyl Amount: 50 mcg Route: I.V. Start: 6:40 PM Stop: 6:40 PM Medication: Versed Amount: 1 mg Route: I.V. Start: 6:51 PM Stop: 6:51 PM Medication: Heparin Amount: 2000 units Route: I.V. I, the attending physician, have reviewed and verified all procedure medications. Yes, all medications given per verbal order History/Risk Factors Hypertension: Yes Dyslipidemia: No Diabetic Therapy: Diet Peripheral Arterial Disease (PAD): No Myocardial Infarction (CA): No Obesity: No Renal Disease: No Tobacco Use: Current/Recent(w/in 1 year) Prior Interventions PCI: No CABG: No Valve Surgery: No Report Signatures Interventional Workflow - Finalized by: Ana Lindo MD on 11/23/2019 8:46:16 PM Diagnostic Workflow - Finalized by:Dr Shavonne Li MD [facility] on 11/11/2019 8:25:46 PM
--- NOTE | 2019-11-11 19:26 | PC.NURSE ---
Patient returned from labeling specialist after report was received via phone. Patient is drowsy. VSS. TR band to right wrist. No bleeding or hematoma. Skin color and temp WNL. Radial pulse present. Patient is not complaining of any pain. SR with PVCs on monitor. Patient is on room air. Patient and given post-cath activity restrictions and care education and verbalized understanding. at bedside. Will continue to monitor.
--- NOTE | 2019-11-11 20:58 | PC.NURSE ---
ORDERED TO NOT GIVE 3 AM DOSE OF LOVENOX PER DR. RYDER.
[2019-11-11 21:07] LABS: Glucose Point of Care 153 mg/dL (70-110)
[2019-11-11] MEDS: atorvastatin 40 mg Tablet PO (21:40)
[2019-11-11] MEDS: pantoprazole DR 40 mg Tablet PO (21:41)
--- NOTE | 2019-11-11 22:22 | PC.NURSE ---
TR band removed from right wrist at 2200. Began removing air at 2100. VSS. No bleeding or hematoma noted. dressing placed. Patient reducated on post-cath activity restrictions adn care. Will continue to monitor.
[2019-11-12] VITALS (7 sets, daily range): BP systolic 114–152; BP diastolic 79–95; PULSE 66–93; RESP 16–32; TEMP 36.8–37.1; O2SAT 94–97
[2019-11-12] MEDS: sodium chloride 0.45% 1,000 ML 100 ML IV (02:58)
[2019-11-12 04:36] LABS: Basophils # 0.1 10^3/uL (0.0-0.1); Basophils % 0.5 %; Eosinophils # 0.3 10^3/uL (0.0-0.8); Eosinophils % 3.5 %; Hematocrit 43.7 % (42.0-52.0); Hemoglobin 14.6 g/dL (11.7-16.6); Lymphocytes # 2.3 10^3/uL (0.8-4.8); Mean Corpuscular HGB Conc 33.4 g/dL (30.0-36.0); Mean Corpuscular Hemoglobin 29.5 pg (28.0-34.0); Mean Corpuscular Volume 88.3 fL (80-94); Mean Platelet Volume 12.8 fL (7.4-10.4); Monocytes # 0.8 10^3/uL (0.2-0.9); Monocytes % 8.7 %; Neutrophils # 5.8 10^3/uL (1.8-7.7); Neutrophils % 62.2 %; Nucleated Red Blood Cells % 0 %; Platelet Count 137 10^3/cmm (130-400); Red Blood Count 4.95 10^6/uL (4.1-5.3); Red Cell Distribution Width 12.9 % (12.1-15.1); White Blood Count 9.2 10^3/uL (4.0-10.0)
[2019-11-12 05:12] LABS: Blood Urea Nitrogen 14 mg/dL (6-20); Calcium 9.3 mg/dL (8.5-10.5); Carbon Dioxide 24 mmol/L (22-29); Chloride 103 mmol/L (98-107); Glomerular Filtration Rate 64.4 mL/min (90-130); Glucose 159 mg/dL (65-115); Osmolality Calculated 286 mOsm/kg (285-295); Sodium 138 mmol/L (136-145)
[2019-11-12 06:42] LABS: Glucose Point of Care 147 mg/dL (70-110)
[2019-11-12] MEDS: nitroglycerin 1 gm/inch oint Pkt 1 INCH TOPICAL (08:06)
[2019-11-12] MEDS: metoprolol tartrate 25 mg Tablet PO (08:07)
[2019-11-12] MEDS: losartan 50 mg Tablet 100 MG PO (08:07)
[2019-11-12] MEDS: aspirin 81 mg Chew Tablet PO (08:08)
[2019-11-12] MEDS: clopidogrel 75 mg Tablet PO (08:09)
--- NOTE | 2019-11-12 08:19 | PC.NURSE ---
patients wrist site is c/d/l no pain, bleeding or hematoma noted.
--- NOTE | 2019-11-12 09:44 | PC.CHAP ---
Pastoral Care Encounter/Spiritual Assessment Type of Contact [] Declined optical glass inspector visit [] Patient/Family/Request visit [] Outpatient visit [] Follow-up visit [] Physician referral [] Code/Alert [x] Routine visit [] Staff referral [] Actively dying [] Patient sleeping [] Family support [] [] Out of room [] Palliative care [] [] Receiving care in room [] Pre-surgical visit [] Trauma [] Long length of stay [] ICU visit [] Other: Relational/Emotional Strength [] Patient feels connected with others/family/visitors/staff [] Distress [] Loneliness/isolation [] Abandonment Spirituality of Patient [x] Person of Geraldine [] Attends Confucianism of their Geraldine [x] Believes in Prayer [] Reads Bible or Bahai materials [] There are Spiritual issues to be addressed Industrial Technology Education Teacher Interventions [x] Prayer [] Active listening [] Non-anxious presence [] Spiritual/emotional support [] Crisis/trauma care [] Spiritual counseling [] Bereavement support [] Provided bereavement packet [] Provided Bible/devotional materials [] Provided toy/stuffed animal, coloring book to patient or family member [] Provided Communion [] Anointing/[place] [] Salvation [x] Completed spiritual assessment [] Other: Impact on Illness or Injury [] Angry [] Fearful [] Anxious [] Often cries [] Exhaustion [] Unable to work [] Unable to attend moravian [] Unable to walk/stand [] Unable to read [] Unable to drive [] Unable to eat/drink [] Unable to sleep [] Unable to be with family [] Patient intubated [] Other: Summary patient feeling so much better. Patient ready to go home Time spent with patient 15min
--- NOTE | 2019-11-12 10:38 | PC.RESP ---
Patient given Smoking Cessation information.
--- NOTE | 2019-11-12 10:53 | PM.DCS ---
Discharge Providers Date of Admission: 11/11/19 00:26 Date of Discharge: November 12, 2019 Attending Provider at Admission: Jessi Dowd MD Attending Provider at Discharge: Lauren Kirby MD Primary Care Provider: Jonh Howe Diagnoses at Discharge Discharge Diagnosis (1) NSTEMI (non-ST elevated myocardial infarction): Status: Acute Problem details: -presented as transfer from [facility], presented there for chest pain -noted troponin elevation with significant delta -Cardio consult by Dr. Guillermo vega -s/p cath (11/10) with balloon angioplasty and stenting of mid Cx; noted evidence of diffuse disease -Echo: EF=50%, mild diffuse hypokinesia of inferolateral wall, relative hypokinesia of basal septum, G1DD, mild MR -no noted significant ECG changes -telemetry monitoring -VSS, continue to monitor -continue ASA, statin, Plavix, therapeutic Lovenox, Metoprolol -noted A1c, lipid panel (2) Hypertension: Status: Chronic Problem details: -VSS, continue to monitor -continue antihypertensives, goal BP <140/90 Qualifiers: Hypertension type: essential hypertension Qualified Code(s): I10 - Essential (primary) hypertension (3) Type 2 diabetes mellitus: Status: Chronic Problem details: -has known poorly-controlled NIDDM type II, A1c-9.3 -accuchecks, ISS -cardiac diabetic diet as tolerated -has been unable to tolerate Jardiance, glyburide, Januvia, metformin and non-compliant otherwise Qualifiers: Diabetes mellitus ferry terminal supervisor insulin use: without ferry terminal supervisor use Diabetes mellitus complication status: with hyperglycemia Qualified Code(s): E11.65 - Type 2 diabetes mellitus with hyperglycemia Other Information Additional DC diagnoses/information: -Morbid obesity: BMI-36 kg/m2 -Hyperlipidemia; on statin -Erectile dysfunction; on sildenafil; on hold Reason for Visit Reason for Visit: Reason For Visit: elevated troponins Hospital Course Hospital Course: Patient was admitted to the cardiac stepdown unit and cardiology consulted due to noted upward trending troponins and concern for ACS. Prior to coronary angiogram he was medically treated with heparin drip, statin, aspirin, Plavix, beta-doron and nitrates. He had coronary angiogram done (R radial approach) with evidence of diffuse disease, had stenting and balloon angioplasty of mid circumflex. Patient has been chest pain-free since procedure, slightly high blood pressure, otherwise hemodynamically stable. Medications have been optimized and he has been counseled on need for medication compliance particularly in terms of his continued risk factors. He is to follow-up with his primary care provider as he reports prior difficulty tolerating multiple diabetes medications. He will require follow-up with cardiology, with the nurse practitioner in [address] Li in 6 weeks. He is counseled on need to seek medical attention immediately should any of his symptoms return. Patient also counseled on lifestyle changes, smoking cessation. He has been provided with instructions on need to avoid heavy lifting with RUE. Discharge Summary: -Patient to follow-up at [facility] with Radha Redd in 1 week, needs post cath site check as well as BMP -Patient to follow-up with his primary care provider within 1 week -Patient to follow-up with Dr. Li in 6 weeks Physical Exam Const: COMMON NORMALS: no apparent distress and oriented x3 GENERAL APPEARANCE: cooperative and comfortable NUTRITIONAL APPEARANCE: obese morbidly obese ORIENTATION/CONSCIOUSNESS: Yes awake HENMT: COMMON NORMALS: normocephalic, head/scalp atraumatic, hearing grossly normal bilaterally and moist oral mucous membranes HEAD & SCALP: normocephalic and atraumatic Eye: COMMON NORMALS: PERRL, EOMs intact bilaterally and conjunctivae normal CONJUNCTIVA: Yes conjunctivae normal PUPIL: Yes PERRL Neck/C-Spine: COMMON NORMALS: full ROM GENERAL: Yes normal visual inspection and Yes trachea midline Resp: COMMON NORMALS: normal respiratory effort, no retractions, no use of accessory muscles and clear to auscultation bilaterally EFFORT & INSPECTION: Yes able to speak in complete sentences, Yes symmetric chest movement and No tachypneic AUSCULTATION: clear to auscultation bilaterally Cardio: COMMON NORMALS: regular rate, regular rhythm, S1 normal heart sound, S2 normal heart sound and no murmurs RATE: regular rate RHYTHM: regular rhythm HEART SOUNDS: S1 normal and S2 normal GI: COMMON NORMALS: normal to inspection, nondistended, normoactive bowel sounds, soft to palpation and non-tender INSPECTION: Yes central obesity PALPATION: Yes soft Extremity: COMMON NORMALS: normal to inspection, full ROM and no clubbing, cyanosis or edema; negative for no pedal edema NARRATIVE EXTREMITY EXAM: -R wrist; clean/dry/intact dressing, no apparent hematoma Neuro: COMMON NORMALS: oriented x3, moves all extremities, no focal motor deficits, no sensory deficits noted and gait normal Psych: COMMON NORMALS: mental status grossly normal, thought process normal, cooperative, affect normal and speech normal SPEECH: Yes normal speech THOUGHT PROCESS: normal thought process Skin: COMMON NORMALS: no rashes or lesions noted, no jaundice, no petechiae and no mottling GENERAL SKIN EXAM: no rashes or lesions noted Discharge Data Data Completed and Pending: Completed Studies During Hospitalization Category Date Time Status CV echo complete* [id number] Routine Ultrasound 11/11/19 00:56 Completed Pending at discharge Category Date Time Status PLUMBER request for service Routin e Exams 11/11/19 16:26 Taken Labs from last 24 hours 11/12/19 11/12/19 11/12/19 06:29 03:40 03:40 WBC 9.2 RBC 4.95 Hgb 14.6 Hct 43.7 MCV 88.3 MCH 29.5 MCHC 33.4 RDW 12.9 Plt Count 137 MPV 12.8 H Neut % (Auto) 62.2 Lymph % (Auto) 25.0 [place] % (Auto) 8.7 Eos % (Auto) 3.5 Baso % (Auto) 0.5 Neut # (Auto) 5.8 Lymph # (Auto) 2.3 [place] # (Auto) 0.8 Eos # (Auto) 0.3 Baso # (Auto) 0.1 Nucleated RBC % (a uto) 0 Nucleated RBCs # 0.0 Sodium 138 Potassium 4.0 Chloride 103 Carbon Dioxide 24 Anion Gap 15.0 BUN 14 Creatinine 1.2 GFR Calculation 64.4 L Glucose 159 H POC Glucose 147 Calculated Osmolal ity 286 Calcium 9.3 Troponin T Gen 5 n g/L 11/11/19 11/11/19 11/11/19 20:27 14:23 11:11 WBC RBC Hgb Hct MCV MCH MCHC RDW Plt Count MPV Neut % (Auto) Lymph % (Auto) [place] % (Auto) Eos % (Auto) Baso % (Auto) Neut # (Auto) Lymph # (Auto) [place] # (Auto) Eos # (Auto) Baso # (Auto) Nucleated RBC % (a uto) Nucleated RBCs # Sodium Potassium Chloride Carbon Dioxide Anion Gap BUN Creatinine GFR Calculation Glucose POC Glucose 153 165 Calculated Osmolal ity Calcium Troponin T Gen 5 n g/L 261 H* Vitals: Last Vital Signs Temp 98.3 F 11/12/19 08:00 Pulse 66 11/12/19 09:00 Resp 18 11/12/19 08:00 BP 152/95 11/12/19 08:00 Pulse Ox 96 11/12/19 09:00 Discharge Plan Discharge Patient Disposition: Home, Self-Care Condition: Stable Prescriptions: New atorvastatin 40 mg Tablet 40 mg PO BEDTIME 30 Days Qty: 30 RF: 0 clopidogrel 75 mg Tablet 75 mg PO DAILY 30 Days Qty: 30 RF: 0 aspirin 81 mg Tablet,Chewable 81 mg PO DAILY 30 Days Qty: 30 RF: 0 metoprolol tartrate 25 mg Tablet 25 mg PO BID 30 Days Qty: 60 RF: 0 Aldactone 25 mg tablet 25 mg PO DAILY 30 Days Qty: 30 RF: 0 magnesium oxide 400 mg magnesium tablet 400 mg PO BID 30 Days Qty: 60 RF: 0 glyburide 5 mg tablet 5 mg PO BID 30 Days Qty: 60 RF: 0 losartan 50 mg Tablet 100 mg PO DAILY 30 Days Qty: 60 RF: 0 pantoprazole 40 mg Tablet,Delayed Release (Dr/Ec) 40 mg PO BEDTIME 30 Days Qty: 30 RF: 0 Continued telmisartan [Micardis] 80 mg tablet 80 mg PO DAILY RF: 0 omeprazole 20 mg Tablet,Delayed Release (Dr/Ec) 20 mg PO BEDTIME RF: 0 sildenafil [Viagra] 50 mg tablet 50 - 100 mg PO DAILY PRN (Reason: sexual activity) Qty: 15 RF: 0 Discontinued telmisartan [Micardis] 80 mg tablet 80 mg PO DAILY RF: 0 hydrochlorothiazide 12.5 mg tablet 12.5 mg PO QAM RF: 0 omeprazole 20 mg Tablet,Delayed Release (Dr/Ec) 20 mg PO BEDTIME RF: 0 Discharge Orders: Discharge Order (Routine); Ordered 11/12/19 Ordered By: Lauren Kirby Referrals: Shavonne iL MD [Physician] - 6 Weeks (Post hospital discharge follow up, ACS s/p intervention. ) Peter Salgado FNP [Nurse Practitioner] - 4-7 days (Post hospital discharge follow up. Found to have ACS. Needs continued follow up on appropriate DM management. ) Radha Redd FNP [Nurse Practitioner] - 1 week (Post cath check, needs BMP) Discharge Diet: Cardiac and Diabetic Discharge Activity: Resume usual activity Discharge Attestations Time Spent in Discharge Care*: greater than 30 min Specific Discharge Activities: Specific discharge activities: educating patient, discussing with pcp/other providers, discussing with case advocate/social workers/dc planners, documenting/other paperwork and evaluating patient/reviewing data Status at Discharge: Cognitive status at discharge: cognitively intact, Behavioral status at discharge: cooperative, Functional status at discharge: independent ambulation Overall status at discharge: patient is back to baseline Quality Metrics Clinical Quality Measures During this hospital stay, did patient experience: AMI Clinical Trial Participant: No Contraindication to aspirin (AMI): Aspirin given Contraindication to statin: Statin prescribed Contraindication to PCI: PCI performed Coding Level of Care Code Acute Field Installation Technician for Hazel Fwd Diagnoses NSTEMI (non-ST elevated myocardial infarction) I21.4 Hypertension I10 Hypertension type: essential hypertension Type 2 diabetes mellitus E11.65 Diabetes mellitus ferry terminal supervisor insulin use: without fpc use Diabetes mellitus complication status: with hyperglycemia
--- NOTE | 2019-11-12 11:17 | PM.PN ---
Subjective Subjective: Interval history: Patient is feeling much better today. Yesterday evening, he underwent left heart catheterization with left and right coronary angiogram and LV angiogram. He was found to have high-grade lesion in the mid circumflex artery. The right coronary artery was found to have severe diffuse disease in the proximal and mid segment. The distal artery was found to be subtotally occluded. The left and descending artery was found to have moderate diffuse disease proximally. Based on the angiogram findings, it was opted to go ahead with a PCI of the circumflex artery lesion. Patient underwent angioplasty and stent placement of the circumflex lesion by Dr. Lindo. Currently he is doing okay with no chest pain. Medications: Reviewed: Yes Medication Review Details: Current Medications Acetaminophen (Tylenol) 650 mg PO Q6H PRN PRN Reason: Mild/Mod Pain Or Temp >/= 101 Al Hydrox/Mg Hydrox/Simethicone (Maalox) 30 ml PO Q15M PRN PRN Reason: INDIGESTION Alprazolam (Xanax) 0.25 mg PO TID PRN PRN Reason: ANXIETY Aspirin (Aspirin Chewable) 81 mg PO DAILY [facility] Last Admin: 11/12/19 08:08 Dose: 81 mg Documented by: Atorvastatin Calcium (Lipitor) 40 mg PO BEDTIME [facility] Last Admin: 11/11/19 21:40 Dose: 40 mg Documented by: Atropine Sulfate (Atropine) 0.5 mg IVP PRN PRN PRN Reason: Symptomatic bradycardia Clopidogrel Bisulfate (Plavix) 75 mg PO DAILY [facility] Last Admin: 11/12/19 08:09 Dose: 75 mg Documented by: Dextrose (D50w) 25 ml IVP ONCE PRN; Protocol PRN Reason: hypoglycemia protocol Dextrose (D50w) 50 ml IVP PRN PRN; Protocol PRN Reason: hypoglycemia protocol Enoxaparin Sodium (Lovenox) 110 mg SUBCUT Q12H [facility] Last Admin: 11/11/19 21:48 Dose: Not Given Documented by: Glucagon (Glucagen) 1 mg IM ONCE PRN; Protocol PRN Reason: Adult Acute Hypoglycemia Prot. Sodium Chloride (Sodium Chloride 0.45%) 1,000 mls @ 100 mls/hr IV .Q10H [facility] Last Admin: 11/12/19 02:58 Dose: 100 mls/hr Documented by: Dextrose (D5w) 500 mls @ 100 mls/hr IV ONCE PRN; Protocol PRN Reason: Adult Acute Hypoglycemia Prot Insulin Aspart (Novolog) 0 unit SUBCUT BEDTIME [facility]; Protocol Last Admin: 11/11/19 21:12 Dose: Not Given Documented by: Insulin Aspart (Novolog) 0 unit SUBCUT TIDWM [facility]; Protocol Last Admin: 11/12/19 11:43 Dose: 6 unit Documented by: Losartan Potassium (Cozaar) 100 mg PO DAILY [facility] Last Admin: 11/12/19 08:07 Dose: 100 mg Documented by: Magnesium Hydroxide (Milk Of Magnesia) 30 ml PO DAILY PRN PRN Reason: CONSTIPATION Metoprolol Tartrate (Lopressor) 25 mg PO BID [facility] Last Admin: 11/12/19 08:07 Dose: 25 mg Documented by: Morphine Sulfate (Morphine) 4 mg IVP Q4H PRN PRN Reason: SEVERE PAIN Naloxone HCl (Narcan) 0.1 mg IVP Q2M PRN PRN Reason: RESPIRATORY RATE < 8/MIN Nitroglycerin (Nitro-Bid) 1 inch TOPICAL Q6H [facility] Last Admin: 11/12/19 08:06 Dose: 1 inch Documented by: Nitroglycerin (Nitrostat) 0.4 mg SUBLINGUAL Q5M PRN PRN Reason: CHEST PAIN Ondansetron HCl (Zofran) 4 mg IVP Q8H PRN PRN Reason: vomiting, or N/V if npo Pantoprazole Sodium (Protonix) 40 mg PO BEDTIME [facility] Last Admin: 11/11/19 21:41 Dose: 40 mg Documented by: Temazepam (Restoril) 15 mg PO BEDTIME PRN PRN Reason: INSOMNIA Vitals/I&O/Wt Last Vital Signs Temp 98.3 F 11/12/19 08:00 Pulse 66 11/12/19 09:00 Resp 18 11/12/19 08:00 BP 152/95 11/12/19 08:00 Pulse Ox 96 11/12/19 09:00 11/11/19 11/12/19 11/12/19 22:59 06:59 14:59 Intake Total 1496.667 / 1980.667 313.333 / 2295.000 360 / 360 Balance 1496.667 / 1981.667 313.333 / 2295.000 360 / 360 Weight last 48 hrs Weight 233 lb 3.2 oz Weight 233 lb 4.8 oz Weight 234 lb 1.6 oz Physical Exam Narrative: EXAM NARRATIVE: GENERAL: The patient is alert and oriented times three. Not in any acute distress. HEENT: No significant pallor, icterus or lymphadenopathy.Oral cavity: There are no mucous membrane lesions. NECK: Trachea appears to be central. No masses noted. No JVD or thyromegaly appreciated. RESPIRATORY: Chest is symmetrical. No intercostals muscle retraction or any accessory muscle activation. There is no chest wall tenderness. Breath sounds are heard bilaterally. No rales or rhonchi heard. No evidence of any consolidation. BREASTS: Deferred. HEART: The heart sounds are normal. No S3 or S4. No significant murmurs. No pericardial rub ABDOMEN: No vessel pulsations or distention. No tenderness. No organomegaly appreciated. Bowel sounds are normally heard. : Deferred. RECTAL: Deferred. LYMPHATIC: No lymphadenopathy noted in the neck or groin. EXTREMITIES: The radial arterial puncture site has no hematoma or bleeding. Good pulses. MUSCULOSKELETAL: No acute joint deformities or swelling SKIN: There are no significant scars or skin rash noted. NEUROPSYCHIATRIC: The patient is alert and oriented x3. Appears to be in a good mood. No tremors or rigidity noted. Data : 11/12/19 03:40 11/12/19 03:40 A&P Assessment and plan (1) Atherosclerotic heart disease of [place] coronary artery with other forms of angina pectoris: The cardiac authorization findings are as mentioned above. Patient status post PCI of the circumflex artery lesion. We may consider doing a myocardial perfusion imaging as an outpatient to evaluate for any ischemia in the distribution of the right coronary artery/left anterior descending artery. Status: Acute Code(s): I25.118 - Atherosclerotic heart disease of [place] coronary artery with other forms of angina pectoris (2) Ischemic cardiomyopathy: In view of the LV dysfunction, we may optimize the afterload reducing agent. I may add spironolactone to the current regimen. We may consider starting him on Entresto as an outpatient. Continue with the losartan . Discontinue the HCTZ Status: Acute Code(s): I25.5 - Ischemic cardiomyopathy (3) NSTEMI (non-ST elevated myocardial infarction): Patient may continue the Plavix and aspirin and the other current medications. Currently he is pain-free. Status: Acute Code(s): I21.4 - Non-ST elevation (NSTEMI) myocardial infarction (4) Dyslipidemia associated with type 2 diabetes mellitus: May continue the atorvastatin. We will do a lipid profile on the blood in the lab. For some reason the has not been done yet. Status: Acute Code(s): E11.69 - Type 2 diabetes mellitus with other specified complication; E78.5 - Hyperlipidemia, unspecified (5) Benign essential hypertension with target blood pressure below 140/90: We will optimize the antihypertensive medication. I may change the metoprolol to Coreg 12.5 mg p.o. twice daily, especially in view of the LV dysfunction Status: Acute Code(s): I10 - Essential (primary) hypertension (6) Nicotine dependence, chewing tobacco, uncomplicated: Advised to stay off the smoking. Patient seems motivated Status: Acute Code(s): F17.220 - Nicotine dependence, chewing tobacco, uncomplicated Additional A&P Information If the patient continues remain stable, may be discharged home today. Repeat BMP in the primary care provider's office next week. Appointment with the [facility] next week-telehealth Attestations Medical Necessity Statement*: Possible discharge home this evening Coding Level of Care Code Acute Curriculum Consultant for [employer] Diagnoses Atherosclerotic heart disease of [place] coronary artery with other forms of angina pectoris I25.118 Ischemic cardiomyopathy I25.5 NSTEMI (non-ST elevated myocardial infarction) I21.4 Dyslipidemia associated with type 2 diabetes mellitus E11.69; E78.5 Benign essential hypertension with target blood pressure below 140/90 I10 Nicotine dependence, chewing tobacco, uncomplicated F17.220
[2019-11-12 11:33] LABS: Glucose Point of Care 249 mg/dL (70-110)
[2019-11-12 13:01] LABS: Chol HDL Ratio 7.27 mg/dL (1.0-5.00); Cholesterol 160 mg/dL (0-200); HDL Cholesterol 22 mg/dL (60-100); LDL Cholesterol Calculated 61 mg/dL (50-129); LDL HDL Ratio 2.77 RATIO (0.00-3.22); Triglycerides 383 mg/dL (0-150)
--- NOTE | 2019-11-12 14:08 | PC.NURSE ---
Patient educated on care of angio saite, myocardial infarction, cardiac angiography, gerd, new medications and S & S of worsening pain, bleeding etc and when to call, also follow up appointments. Patient is stable, iv removed with no issue, and intact, covered with 2x2 and coban. patient exiting hospital via wheelchair transport to family vehicle with family driving home.
== END 2019-11-12 14:15 | disposition home or self-care (01) | DRG 247 ==
PROVIDERS: Internal Medicine Cardiovascular Disease; Admitting Provider Hospitalist; Family Provider Nurse Practitioner Family; PCP Nurse Practitioner Family; Visit Provider Family Medicine
PROC: 027034Z Dilation of Coronary Artery, One Artery with Drug-eluting Intraluminal Device, Percutaneous Approach (ICD-10-PCS; principal; 2019-11-11 16:30)
DX: I21.4 Non-ST elevation (NSTEMI) myocardial infarction (principal); Z68.1 Body mass index [BMI] 19.9 or less, adult; I10 Essential (primary) hypertension; E11.65 Type 2 diabetes mellitus with hyperglycemia; F17.210 Nicotine dependence, cigarettes, uncomplicated; E78.5 Hyperlipidemia, unspecified; N52.9 Male erectile dysfunction, unspecified; K21.9 Gastro-esophageal reflux disease without esophagitis; F17.220 Nicotine dependence, chewing tobacco, uncomplicated; E11.69 Type 2 diabetes mellitus with other specified complication; E66.3 Overweight; I25.118 Atherosclerotic heart disease of native coronary artery with other forms of angina pectoris; I25.5 Ischemic cardiomyopathy; Z79.82 Long term (current) use of aspirin; Z79.84 Long term (current) use of oral hypoglycemic drugs; Z79.811 Long term (current) use of aromatase inhibitors; Z79.83 Long term (current) use of bisphosphonates
CPT/HCPCS: 12345; 36415; 36416; 80048; 80053; 80061; 82962; 83735; 83880; 84484; 85025; 85347; 93005; 93306; 93452; 96372; C1725; C1769; C1874; C1887; C1894; C9600; G0379; J1644; J1650; J1815; J2250; J3010; J7030; Q0163; Q9967

== ENCOUNTER → 2019-11-17 11:58 | Outpatient (BNVA) | payer SELFPAY | PROVIDERS: Family Provider Nurse Practitioner Family; Visit Provider Nurse Practitioner Family | DX: I25.118 Atherosclerotic heart disease of native coronary artery with other forms of angina pectoris (principal); I10 Essential (primary) hypertension; E11.69 Type 2 diabetes mellitus with other specified complication; K21.9 Gastro-esophageal reflux disease without esophagitis; I25.5 Ischemic cardiomyopathy | CPT/HCPCS: 80048 ==

== ENCOUNTER → 2019-12-30 13:34 | Outpatient (BNVA) | payer SELFPAY | PROVIDERS: Family Provider Nurse Practitioner Family; Visit Provider Orthopaedic Surgery | DX: S99.911A Unspecified injury of right ankle, initial encounter (principal); X58.XXXA Exposure to other specified factors, initial encounter | CPT/HCPCS: 73610 ==

== ENCOUNTER 2020-02-09 16:38 | Emergency (ER) | payer SELFPAY ==
[2020-02-09 16:44] VITALS: BP 159/91; PULSE 80; RESP 16; TEMP 36.8; O2SAT 96; BMI 35.1
--- NOTE | 2020-02-09 16:51 | ECG_ITS ---
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 Measurements Intervals [place] Rate: 79 P: -26 [place]: 140 QRS: 1 QRSD: 95 T: 32 QT: 354 QTc: 406 Interpretive Statements SINUS RHYTHM WITH FREQUENT VENTRICULAR PREMATURE COMPLEXES POSSIBLE INFERIOR MYOCARDIAL INFARCTION , OF INDETERMINATE AGE Compared to ECG 11/11/2019 06:31:15 Myocardial infarct finding now present T-wave abnormality no longer present Electronically Signed On 02-09-2020 18:24:52 CDT by Sarah Bates M.D. [id number]
--- NOTE | 2020-02-09 16:51 | XR_ITS ---
WS: [id number] PORTABLE CHEST HISTORY: Chest pain COMPARISON: 06/03/2012 Lungs are clear and well expanded. No pleural effusion or pneumothorax. Cardiac size: Normal. Mediastinum/Aorta: Normal mediastinum. No osseous abnormality seen. XR/XR chest 1V portable [id number] IMPRESSION: Unremarkable portable chest.
[2020-02-09] MEDS: lidocaine 2% viscous 15 ML, aluminum-mag hydrox-simethicon 30 ML, sucralfate oral liq 1 GM PO (17:13)
[2020-02-09] MEDS: sodium chloride 0.9% 500 ML 999 ML IV (17:13)
[2020-02-09 17:16] LABS: Basophils # 0.1 10^3/uL (0.0-0.1); Basophils % 0.7 %; Eosinophils # 0.3 10^3/uL (0.0-0.8); Eosinophils % 3.8 %; Hematocrit 43.7 % (42.0-52.0); Hemoglobin 14.7 g/dL (11.7-16.6); Lymphocytes # 2.1 10^3/uL (0.8-4.8); Lymphocytes % 28.8 %; Mean Corpuscular HGB Conc 33.6 g/dL (30.0-36.0); Mean Corpuscular Hemoglobin 29.2 pg (28.0-34.0); Mean Corpuscular Volume 86.7 fL (80-94); Mean Platelet Volume 12.2 fL (7.4-10.4); Monocytes # 0.7 10^3/uL (0.2-0.9); Monocytes % 9.3 %; Neutrophils # 4.2 10^3/uL (1.8-7.7); Neutrophils % 57.3 %; Nucleated Red Blood Cells % 0 %; Platelet Count 158 10^3/cmm (130-400); Red Blood Count 5.04 10^6/uL (4.1-5.3); Red Cell Distribution Width 13.1 % (12.1-15.1); White Blood Count 7.3 10^3/uL (4.0-10.0)
--- NOTE | 2020-02-09 17:19 | W.ED.CHESTPA ---
HPI - Chest Pain General: Chief Complaint: Chest Pain Stated Complaint: cp Time Seen by Provider: 02/09/20 16:51 Source: patient Mode of arrival: ambulatory Limitations: no limitations History of Present Illness: HPI narrative: Mr. Powell is a nice 49-year-old male who comes in complaining of chest pain. This chest pain began this morning while he was resting in bed. He describes the pain as burning and stinging in the left side of his chest. He has no other associated symptoms such as radiation of his pain, shortness of breath, nausea/vomiting, diaphoresis or exertional worsening of his chest pain. Patient has had similar pain in the past that is resolved on its own. Patient states that he does not have reflux. Patient states he had a heart attack in the past and it did not feel like this. Patient was concerned and his family wanted him to be evaluated. Associated symptoms: Deny abdominal pain, diaphoresis, dyspnea, fever(s), nausea, palpitations, syncope or vomiting Review of Systems Const: Denies: fever(s), chills, body aches, fatigue, malaise or diaphoresis Eyes: Denies: change in vision, blurry vision, blind spots, photophobia, eye discharge or eye redness ENMT: Denies: throat pain, odynophagia, hoarseness, swelling of lips/tongue, oral sores, ear or mastoid pain, ear discharge, change in hearing or nasal discharge Card: Reports: chest pain; Denies: palpitations, irregular heart rhythm, edema, lightheadedness, syncope, pre-syncope, dyspnea on exertion or orthopnea Resp: Denies: dyspnea, productive cough, non-productive cough, wheezing, hemoptysis or chest congestion GI: Denies: abdominal pain, nausea, vomiting, hematemesis, coffee ground emesis, heartburn, diarrhea, constipation, GI cramping, hematochezia or melena : Denies: flank pain, dysuria, urinary frequency, urinary urgency or hematuria Musc: Denies: neck pain, back pain, extremity pain, extremity swelling, joint pain, joint swelling, joint redness, joint warmth or joint stiffness Skin/Breast: Denies: rash, pruritus, erythema, skin tenderness or jaundice Neuro: Denies: headache(s), numbness in extremities, weakness in extremities, sensory changes, lack of coordination, difficulty walking, dizziness, vertigo, confusion, Slurred speech present or seizure-like activity [place]/Lymph: Denies: easy bruising, easy bleeding, petechiae, purpura or enlarged lymph nodes All/Imm: Denies: urticaria, throat swelling, tongue swelling, facial swelling or acute wheezing PFSH ED PFSH: Medical History (Updated 02/09/20 @ 19:53 by Amanda Goodman) Atherosclerotic heart disease of [place] coronary artery with other forms of angina pectoris Benign essential hypertension with target blood pressure below 140/90 Dyslipidemia associated with type 2 diabetes mellitus Erectile dysfunction has sildenafil script GERD (gastroesophageal reflux disease) History of pancreatitis one time, noted when diagnosed with diabetes, no recurrance Hypertension Ischemic cardiomyopathy Type 2 diabetes mellitus Family History Mother CAD (coronary artery disease) several stents Diabetes Family history of premature coronary artery disease Hypertension Stroke Father Cancer Grandfather Dementia Denies family history of Clotting disorder Hyperlipidemia Psychiatric illness Chronic kidney disease (CKD) Suicide Anesthesia complication Bleeding disorder Lung disease Social History Smoking and tobacco status: former smoker Alcohol intake: current Alcohol intake frequency: few times a month Lives independently: Yes Physical Exam Const: COMMON NORMALS: no acute distress, patient oriented x3, no limitations, healthy appearing and well nourished GENERAL APPEARANCE: cooperative, well kempt and well developed HENMT: COMMON NORMALS: normocephalic, atraumatic, external ears normal, EAC's normal and Normal external nose present HEAD & SCALP: normal to inspection, normocephalic and atraumatic FACE & SINUS: normal facial exam and face symmetric NOSE: Normal external nose present and Normal nares present EXTERNAL EAR: Yes external ears normal EXTERNAL AUDITORY CANAL: EAC's normal MOUTH: Normal oral and palatal mucosa present, lip normal and tongue normal Eye: COMMON NORMALS: Equal, round and reactive pupils present and conjunctivae normal GENERAL EYE: appearance normal, both eyes and all related structures ALIGNMENT: Yes alignment normal PERIORBITAL: periorbital findings normal EYELID: eyelids normal CONJUNCTIVA: Yes conjunctivae normal SCLERA: sclerae normal PUPIL: Yes Equal, round and reactive pupils present Neck/C-Spine: COMMON NORMALS: full ROM, no lymphadenopathy, supple, no meningeal signs and no JVD GENERAL: Yes normal visual inspection and Yes trachea midline Chest: COMMONS NORMALS: normal inspection of the chest CHEST: Yes tenderness costochondral junction (Left-sided) Resp: COMMON NORMALS: normal respiratory effort, No retractions and No use of accessory muscles EFFORT & INSPECTION: Yes able to speak in complete sentences and Yes symmetric chest movement AUSCULTATION: no crackles, no rales, no rhonchi and no wheezes Cardio: COMMON NORMALS: no JVD, regular rate, regular rhythm, S1 normal heart sound present and S2 normal heart sound present RATE: regular rate RHYTHM: regular rhythm HEART SOUNDS: S1 normal heart sound present, S2 normal heart sound present, no click, no gallops, no murmurs, no rubs and abnormal split S2 GI: COMMON NORMALS: Soft to palpation and No hepatosplenomegaly present PALPATION: Yes Soft to palpation, No Tenderness to palpation present (GI), No Guarding due to palpation present (GI), No Rigid due to palpation, Yes No hepatosplenomegaly present, No Hernia present, No Palpable mass present and No Pulsatile mass present : COMMON NORMALS: Yes no CVA tenderness BLADDER/KIDNEY EXAM: Yes no CVA tenderness Back/Pelvis: COMMON NORMALS: no CVA tenderness, thoracic and lumbar spine normal to inspection, no thoracic nor lumbar tenderness and thoraco-lumbar ROM normal Extremity: COMMON NORMALS: normal to inspection, full ROM, capillary refill normal, no joint enlargement, no clubbing, cyanosis or edema and no calf tenderness Neuro: COMMON NORMALS: patient oriented x3, CN's II-XII intact bilaterally, moves all extremities, no focal motor deficits and no sensory deficits noted MENINGEAL SIGNS: Yes no meningeal signs SPEECH: speech normal Psych: COMMON NORMALS: mental status grossly normal, Normal thought process present, cooperative, normal affect, speech normal and activity/motor behavior normal APPEARANCE: Yes well kempt SPEECH: Yes normal speech THOUGHT PROCESS: Normal thought process present Skin: COMMON NORMALS: no rashes or lesions noted, turgor normal, no jaundice, no petechiae and no mottling GENERAL SKIN EXAM: no rashes or lesions noted and turgor normal Course Vital Signs: Vital signs: Vital Signs Temperature 98.9 F 02/09/20 20:46 Pulse Rate 74 02/09/20 20:46 Respiratory Rate 16 02/09/20 20:46 Blood Pressure 156/101 02/09/20 20:46 Pulse Oximetry 97 02/09/20 20:46 MDM - Chest Pain MDM Narrative: Medical decision making narrative: Arrival -Mr. Powell is a nice 49-year-old male who comes in complaining of burning and stinging-like left-sided chest pain. He has no associated symptoms. His vital signs are stable. Patient has a heart score of 3. There are other etiologies possible for his pain such as aortic dissection, pulmonary embolism, or reflux disease among many others. This time with no ripping, tearing or migrating type of pain and equal pulses diffusely I think aortic dissection is ruled out. The patient is PERC rule is negative. I will proceed with her came up for possible ACS as well as other etiologies. Medical Records: Attestation: I reviewed the patient's medical records. Medical records narrative: Cath report from 11/11/2019 reveals multiple areas of lesion. Patient received 1 stent at that time to the circumflex artery. Lab Data: Labs: Lab Results 02/09/20 02/09/20 02/09/20 Range/Units 17:03 17:03 17:03 WBC 7.3 (4.0-10.0) 10^3/ uL RBC 5.04 (4.1-5.3) 10^6/u L Hgb 14.7 (11.7-16.6) g/dL Hct 43.7 (42.0-52.0) % MCV 86.7 (80-94) fL MCH 29.2 (28.0-34.0) pg MCHC 33.6 (30.0-36.0) g/dL RDW 13.1 (12.1-15.1) % Plt Count 158 (130-400) 10^3/c mm MPV 12.2 H (7.4-10.4) fL Neut % (Auto) 57.3 % Lymph % (Auto) 28.8 % Morrow % (Auto) 9.3 % Eos % (Auto) 3.8 % Baso % (Auto) 0.7 % Neut # (Auto) 4.2 (1.8-7.7) 10^3/u L Lymph # (Auto) 2.1 (0.8-4.8) 10^3/u L Morrow # (Auto) 0.7 (0.2-0.9) 10^3/u L Eos # (Auto) 0.3 (0.0-0.8) 10^3/u L Baso # (Auto) 0.1 (0.0-0.1) 10^3/u L Nucleated RBC % (a uto) 0 % Nucleated RBCs # 0.0 /100WBC PT 12.90 (10.5-13.3) SECO NDS INR 0.95 (0.8-1.2) Sodium 138 (136-145) mmol/L Potassium 4.2 (3.5-5.1) mmol/L Chloride 99 (98-107) mmol/L Carbon Dioxide 26 (22-29) mmol/L Anion Gap 17.2 (5-19) BUN 16 (6-20) mg/dL Creatinine 1.2 (0.7-1.2) mg/dL GFR Calculation 64.4 L (90-130) mL/min Glucose 285 H (65-115) mg/dL Calculated Osmolal ity 293 (285-295) mOsm/k g Calcium 9.9 (8.5-10.5) mg/dL Total Bilirubin 1.4 H (0.15-1.2) mg/dL AST 20 (0-40) U/L ALT 30 (0-41) U/L Alkaline Phosphata se 109 (40-130) IU/L Troponin T Baselin e (0-15) ng/L Troponin T 120 Min poarch (0-15) ng/L Delta Troponin T (0-10) ABS# Total Protein 6.8 (6.6-8.7) g/dL Albumin 4.7 (3.5-5.2) g/dL Globulin 2.1 (1.3-4.6) g/dL Lipase 43 (13-60) U/L 02/09/20 02/09/20 Range/Units 17:03 18:44 WBC (4.0-10.0) 10^3/ uL RBC (4.1-5.3) 10^6/u L Hgb (11.7-16.6) g/dL Hct (42.0-52.0) % MCV (80-94) fL MCH (28.0-34.0) pg MCHC (30.0-36.0) g/dL RDW (12.1-15.1) % Plt Count (130-400) 10^3/c mm MPV (7.4-10.4) fL Neut % (Auto) % Lymph % (Auto) % Morrow % (Auto) % Eos % (Auto) % Baso % (Auto) % Neut # (Auto) (1.8-7.7) 10^3/u L Lymph # (Auto) (0.8-4.8) 10^3/u L [place]row # (Auto) (0.2-0.9) 10^3/u L Eos # (Auto) (0.0-0.8) 10^3/u L Baso # (Auto) (0.0-0.1) 10^3/u L Nucleated RBC % (a uto) % Nucleated RBCs # /100WBC PT (10.5-13.3) SECO NDS INR (0.8-1.2) Sodium (136-145) mmol/L Potassium (3.5-5.1) mmol/L Chloride (98-107) mmol/L Carbon Dioxide (22-29) mmol/L Anion Gap (5-19) BUN (6-20) mg/dL Creatinine (0.7-1.2) mg/dL GFR Calculation (90-130) mL/min Glucose (65-115) mg/dL Calculated Osmolal ity (285-295) mOsm/k g Calcium (8.5-10.5) mg/dL Total Bilirubin (0.15-1.2) mg/dL AST (0-40) U/L ALT (0-41) U/L Alkaline Phosphata se (40-130) IU/L Troponin T Baselin e 7 (0-15) ng/L Troponin T 120 Min poarch 8.23 (0-15) ng/L Delta Troponin T 1.23 (0-10) ABS# Total Protein (6.6-8.7) g/dL Albumin (3.5-5.2) g/dL Globulin (1.3-4.6) g/dL Lipase (13-60) U/L Imaging Data^: CXR: Attestation: I personally reviewed and interpreted this imaging study as follows: My impression: No acute cardiopulmonary findings. EKG Data^: EKG 1: Attestation: I personally reviewed and interpreted this EKG as follows: EKG interpretation date: 02/09/20 EKG interpretation time: 17:00 Interpretation: Normal sinus rhythm at 79 beats a minute, frequent PVCs, normal intervals, no blocks, otherwise no acute ST-T wave changes. Similar to previous. EKG 2: Attestation: I personally reviewed and interpreted this EKG as follows: EKG interpretation date: 02/09/20 EKG interpretation time: 18:42 Interpretation: Normal sinus rhythm at 78 beats a minute, no acute ST or T wave changes. PVCs noted. Similar to previous. Discharge Plan Discharge Patient Disposition: Home, Self-Care Clinical Impression: Chest pain Qualifiers: Chest pain type: unspecified Qualified Code(s): R07.9 - Chest pain, unspecified Condition: Stable Prescriptions: No Action clopidogrel 75 mg tablet 75 mg PO DAILY 90 Days Qty: 90 RF: 1 losartan 50 mg tablet 100 mg PO DAILY 90 Days Qty: 180 RF: 1 metoprolol tartrate 25 mg tablet 25 mg PO BID 90 Days Qty: 180 RF: 1 pantoprazole 40 mg tablet,delayed release (DR/EC) 40 mg PO BEDTIME 90 Days Qty: 90 RF: 1 Viagra 50 mg tablet 50 - 100 mg PO DAILY PRN (Reason: sexual activity) Qty: 15 RF: 0 Zyrtec 10 mg capsule 10 mg PO DAILY Qty: 90 RF: 0 atorvastatin 40 mg Tablet 40 mg PO DAILY RF: 0 MagOx 400 mg (241.3 mg magnesium) Tablet 400 mg PO BID RF: 0 glyburide 5 mg Tablet 5 mg PO BID RF: 0 spironolactone 25 mg Tablet 25 mg PO DAILY RF: 0 aspirin 81 mg Tablet,Chewable 81 mg PO DAILY RF: 0 Discharge Orders: Discharge Order (Routine); Ordered 02/09/20 Ordered By: Amanda Goodman Referrals: Shavonne Li MD [Physician] - 1-3 days Peter Salgado FNP [Primary Care Provider] - 1-3 days Discharge Diet: Advance as tolerated Discharge Activity: Increase activity as tolerated Patient Instructions: Chest Pain (ED) Activity Restrictions/Additional Instructions: Please return to the ER immediately for any of the signs or symptoms listed on your discharge instruction sheets, worsening/changing of your symptoms, you are not getting better as quickly as expected, or for ANY other cause or concerns. I have recommended and offered you stay for formal cardiac rule out and stress testing but you have refused. If you change your mind, your symptoms change or worsen, or you develop any new cause for concern, or you simply change your mind you are more than welcome to return to the ER for recheck. Be certain to follow-up with Dr. Li as soon as possible for recheck. 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
[2020-02-09 17:33] LABS: INR 0.95 (0.8-1.2)
[2020-02-09 17:40] LABS: Alanine Aminotransferase 30 U/L (0-41); Albumin Level 4.7 g/dL (3.5-5.2); Alkaline Phosphatase 109 IU/L (40-130); Anion Gap 17.2 (5-19); Aspartate Amino Transferase 20 U/L (0-40); Blood Urea Nitrogen 16 mg/dL (6-20); Calcium 9.9 mg/dL (8.5-10.5); Carbon Dioxide 26 mmol/L (22-29); Chloride 99 mmol/L (98-107); Globulin 2.1 g/dL (1.3-4.6); Glomerular Filtration Rate 64.4 mL/min (90-130); Glucose 285 mg/dL (65-115); Lipase 43 U/L (13-60); Osmolality Calculated 293 mOsm/kg (285-295); Potassium 4.2 mmol/L (3.5-5.1); Sodium 138 mmol/L (136-145); Total Bilirubin 1.4 mg/dL (0.15-1.2); Total Protein 6.8 g/dL (6.6-8.7)
[2020-02-09 17:41] LABS: Troponin(5th) Baseline 7 ng/L (0-15)
[2020-02-09] MEDS: pantoprazole 40 mg SDV 80 MG IVP (17:55)
[2020-02-09 17:58] VITALS: BP 163/87; PULSE 77; RESP 16; O2SAT 96
[2020-02-09 18:00] VITALS: BP 176/111; PULSE 76; RESP 16; O2SAT 96
[2020-02-09] MEDS: nitroglycerin 0.4 mg sublingual Tablet SUBLINGUAL (18:10)
[2020-02-09 18:30] VITALS: BP 142/97; PULSE 96; RESP 17; O2SAT 96
--- NOTE | 2020-02-09 18:51 | ECG_ITS ---
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 Measurements Intervals [place] Rate: 78 P: -19 [place]: 143 QRS: -4 QRSD: 99 T: 37 QT: 367 QTc: 420 Interpretive Statements SINUS RHYTHM WITH OCCASIONAL VENTRICULAR PREMATURE COMPLEXES POSSIBLE INFERIOR MYOCARDIAL INFARCTION , OF INDETERMINATE AGE [30 ms Q WAVE IN II/aVF] Compared to ECG 02/09/2020 17:00:28 No significant changes Electronically Signed On 02-09-2020 18:37:47 CDT by Sarah Bates M.D. [id number]
[2020-02-09 19:03] VITALS: BP 127/81; PULSE 82; RESP 16; O2SAT 96
[2020-02-09 19:11] LABS: Troponin 5 2HR 8.23 ng/L (0-15); Troponin 5 2HR Delta 1.23 ABS# (0-10)
[2020-02-09 20:46] VITALS: BP 156/101; PULSE 74; RESP 16; TEMP 37.2; O2SAT 97
--- NOTE | 2020-02-10 10:51 | DCPLANNER ---
manager of applications development had message to schedule a follow up appointment for patient with [facility]. manager of applications development called [facility], spoke with Donya, gave clinic patients information. manager of applications development was told that patients information would be printed and reviewed. Clinic will call patient with appointment information.
--- NOTE | 2020-02-12 08:16 | DCPLANNER ---
Patient has a follow up appointment scheduled for , February 19, 2020 at 3:[address] Li. Clinic will call patient with appointment information.
--- NOTE | 2020-03-01 14:37 | DCPLANNER ---
Appointment scheduled for 02.19.20 with [facility], was cancelled.
== END 2020-02-09 20:49 | disposition home or self-care (01) ==
PROVIDERS: Emergency Provider Emergency Medicine; PCP Registered Nurse
DX: R07.9 Chest pain, unspecified (principal); Z79.02 Long term (current) use of antithrombotics/antiplatelets; Z79.82 Long term (current) use of aspirin; I10 Essential (primary) hypertension; E11.9 Type 2 diabetes mellitus without complications; Z87.891 Personal history of nicotine dependence
CPT/HCPCS: 12345; 36415; 71045; 80053; 83690; 84484; 85025; 85610; 93005; 96360; 96374; 96375; 99283; 99284; C9113; J7040

== ENCOUNTER → 2020-05-05 11:24 | Outpatient (BNVA) | payer SELFPAY | PROVIDERS: PCP Registered Nurse; Visit Provider Registered Nurse | DX: E11.9 Type 2 diabetes mellitus without complications (principal) | CPT/HCPCS: 80053; 80061; 83036; 83721 ==

== ENCOUNTER → 2020-08-05 11:09 | Outpatient (BNVA) | payer SELFPAY | PROVIDERS: PCP Registered Nurse; Visit Provider Registered Nurse | DX: G47.00 Insomnia, unspecified (principal); E11.65 Type 2 diabetes mellitus with hyperglycemia; I10 Essential (primary) hypertension; E11.69 Type 2 diabetes mellitus with other specified complication; E78.5 Hyperlipidemia, unspecified; F51.01 Primary insomnia | CPT/HCPCS: 80053; 83036 ==

== ENCOUNTER → 2020-09-09 11:13 | Outpatient (BNVA) | payer SELFPAY | PROVIDERS: PCP Registered Nurse; Visit Provider Registered Nurse | DX: R35.0 Frequency of micturition (principal); E11.65 Type 2 diabetes mellitus with hyperglycemia; I25.118 Atherosclerotic heart disease of native coronary artery with other forms of angina pectoris; I10 Essential (primary) hypertension; L02.92 Furuncle, unspecified | CPT/HCPCS: 36416; 81000; 82962 ==

== ENCOUNTER → 2020-10-28 11:03 | Outpatient (BNVA) | payer SELFPAY | PROVIDERS: PCP Registered Nurse; Visit Provider Registered Nurse | DX: R07.9 Chest pain, unspecified (principal); E11.65 Type 2 diabetes mellitus with hyperglycemia; M25.50 Pain in unspecified joint | CPT/HCPCS: 80053; 80061; 83036; 85025; 85651; 86140 ==

== ENCOUNTER → 2020-11-11 16:33 | Outpatient (BNVA) | payer SELFPAY | PROVIDERS: PCP Registered Nurse; Visit Provider Internal Medicine Cardiovascular Disease | DX: I10 Essential (primary) hypertension (principal); R07.9 Chest pain, unspecified; I25.118 Atherosclerotic heart disease of native coronary artery with other forms of angina pectoris | CPT/HCPCS: 80048; 83735 ==

== ENCOUNTER → 2020-11-28 16:01 | Outpatient (BNVA) | payer SELFPAY | PROVIDERS: PCP Registered Nurse; Visit Provider Nurse Practitioner | DX: M25.50 Pain in unspecified joint (principal); Z68.35 Body mass index [BMI] 35.0-35.9, adult; F17.211 Nicotine dependence, cigarettes, in remission; Z71.89 Other specified counseling | CPT/HCPCS: 84443; 84550 ==

== ENCOUNTER 2020-12-07 08:04 | Outpatient (CLI) | payer SELFPAY ==
--- NOTE | 2020-12-07 08:23 | ECG_ITS ---
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 Interpretive Statements NAME OF STUDY: LEXISCAN SESTAMIBI STRESS TEST INDICATION: Chest Pain PROCEDURE: At the baseline, the EKG revealed normal sinus rhythm with a normal ST-T's. The baseline blood pressure was 173/99 mm Hg with a heart rate of 82 beats/min. Lexiscan was infused over a period of 20 seconds. A total of 0.4 milligrams of Lexiscan was infused. The stress phase was continued for a total of 5 minutes. Heart rate at the end of the stress phase was 97 with a blood pressure 151/91. The EKG at the peak infusion revealed no significant changes occasional PVCs and PACs were noted. Sestamibi was injected 20 seconds after the Lexiscan infusion. Blood pressure at the end of the recovery phase was 148/90 with a heart rate of 92 per minute. CONCLUSION: 1. No significant EKG changes with the LexiScan infusion 2. No LexiScan induced chest pain or cardiac arrhythmia 3. Normal blood pressure and heart rate response 4. Sestamibi/sestamibi perfusion scan pending; see separate report. Electronically Signed On 12-09-2020 22:22:31 CDT by Shavonne Li M.D. [id number]
--- NOTE | 2020-12-07 08:23 | NMCV_ITS ---
NM gracy perf SPECT r/s* [id number] Irving Powell Age: 50 Gender: M : 1970 Exam Date: 12/07/2020 09:42 Ordering Phys: Shavonne Li MD ([email or web address]) Technologist: KAMRAN So Exam Location: [facility] Indications: CAD STRESS TEST [facility] IMAGE PROTOCOL Rest/Stress 1 Lexiscan Day Radiopharmaceutical Dose (mCi) Administration Site Administered by Rest: Tc-99m 10.9 IV KAMRAN So Sestamibi Stress:Tc-99m 32.6 IV KAMRAN So Sestamibi Rest: 07-Dec-2020 60 Discovery 630 Stress: 07-Dec-2020 30 Discovery 630 0.4mg Lexiscan. Images obtained in supine and prone position. SPECT RESULTS Technical Quality: Excellent Raw Data Analysis: Normal Image Corrections: No attenuation or motion correction applied Summed Stress Score: 10 Summed Rest Score: 2 Summed Difference Score: 8 PERFUSION FINDINGS Areas of slightly decreased tracer uptake in the inferior, inferolateral, anteroseptal and apical regions. Some reversibility was noted basal inferolateral, basal inferior, apical lateral, apical septal, mid anteroseptal and LV apex. FUNCTIONAL RESULTS (calculated via Gated SPECT) Stress Image LV EF (%): 40 Stress EDV (mL):143 TID: 1.07 Stress ESV (mL):86 FUNCTIONAL FINDINGS: Segmental wall motion analysis revealing diffuse hypokinesia of the inferior wall, septum and LV apex. IMPRESSIONS 1. Myocardial perfusion imaging revealing moderate area of slightly decreased tracer uptake in the inferior, inferolateral, anteroseptal and apical regions with some reversibility suggestive of myocardial scarring with a small area of ischemia in the distribution of the left anterior descending artery and very small areas of ischemia in the circumflex and right coronary artery. 2. Diminished ejection fraction of 40%. 3. Multiple wall motion normalities as mentioned above. 4. Moderately dilated LV cavity with an end-systolic volume of 86 mL No similar previous studies are available for comparison Dr Shavonne Li MD FAC (Electronically Signed) Final Date: 07 December 2020 15:02 S
[2020-12-07 08:30] VITALS: BMI 34.9
[2020-12-07 10:38] VITALS: BP 170/92; PULSE 98
[2020-12-07] MEDS: regadenoson 0.4 Mg/5 ml Syringe IVP (10:39)
--- NOTE | 2020-12-07 10:41 | PC.NURSE ---
Stress changed to chemical Dr Li notified of pt resting BP of 173/99. Dr Li states to attempt exercise mibi but if BP goes over 200 stop and change to chemical. Within 3 min pt BP 240/100's. Test stopped and changed to LExiscan. Pt asymptomatic.
== END 2020-12-07 08:05 | disposition home or self-care (01) ==
PROVIDERS: PCP Family Medicine; Visit Provider Internal Medicine Cardiovascular Disease
DX: R07.9 Chest pain, unspecified (principal)
CPT/HCPCS: 78452; 93017; A9500; J2785

== ENCOUNTER → 2021-01-19 09:11 | Outpatient (BNVA) | payer SELFPAY | PROVIDERS: PCP Registered Nurse; Referring Provider Internal Medicine Cardiovascular Disease; Visit Provider Internal Medicine Cardiovascular Disease | DX: I25.118 Atherosclerotic heart disease of native coronary artery with other forms of angina pectoris (principal); I25.5 Ischemic cardiomyopathy; R07.9 Chest pain, unspecified; R06.02 Shortness of breath; I10 Essential (primary) hypertension; Z20.822 Contact with and (suspected) exposure to COVID-19; Z79.01 Long term (current) use of anticoagulants | CPT/HCPCS: 80048; 85025; 85610; 86850; 86900; 87635 ==

== ENCOUNTER 2021-01-25 05:40 | Day surgery (SDC) | payer SELFPAY ==
[2021-01-25] VITALS (24 sets, daily range): BP systolic 109–167; BP diastolic 67–105; PULSE 69–90; RESP 12–23; TEMP 36.2–36.6; O2SAT 96–97; BMI 34.7
--- NOTE | 2021-01-25 06:00 | XACV_ITS ---
Exam Room: [facility] Ht: 173 cm Wt: 103 kg BSA: 2.27 m2 Gender: Male : 1970 Any Known Allergies: No known allergies Exam Priority: Routine Procedure(s): Procedure Description: Diagnostic procedure Procedure Description: PCI procedure Procedure Description: Left Heart Catheterization Procedure Description: Left ventriculography Procedure Description: Drug Eluting Coronary Stent Procedure Description: PTCA Procedure Description: Miscellaneous Procedure Description: ACT Procedure Description: Coronary Angiography Diagnostic Cath Status: Elective Diagnostic Findings * Left main is a medium caliber vessel which was found to have around 30% eccentric plaque in the distal segment. * The left anterior descending artery is a medium caliber vessel which appears to wrap around the LV apex minimally. The proximal LAD was found to have an eccentric around 60 to 70% narrowing. The first septal clerk carrier was found to have a high-grade ostial stenosis of around 80%. The mid and distal LAD was found to have mild diffuse intimal irregularities. Right after the first diagonal branch, the artery appears to have a small aneurysmal dilatation with some eccentric plaques. * The left circumflex artery is a medium caliber vessel which was found to have a long stented area extending from the proximal segment to the first obtuse marginal artery. The ostium of the mid circumflex artery was found to have some jailing from the stented segment extending into the first obtuse marginal branch. The mid circumflex artery was found to have mild diffuse intimal irregularities. Wdvp-ie-uwgcg collaterals were noted filling of the PLV and the PDA branches of the right coronary artery. * The right coronary artery was found to have moderate to severe diffuse disease in the proximal to mid segment. The distal artery appears to be totally occluded. Grade 3 left to right collaterals were noted during the left coronary injection. PCI Status: Elective PCI Indication: New Onset Angina <= 2 months Interventional Findings * Procedure details: We engaged left main artery with a XB 3.5 guide catheter. IV heparin was administered to maintain an ACT above 250 seconds. We performed FFR of the proximal LAD lesion that was significantly abnormal with a value of 0.71. We then rewired the LAD with a 0.014 runthrough guidewire. A 2.5x12mm semi-compliant balloon was used to predilated the proximal LAD stenosis. This was followed by placement of a 2.42b02ia Resolute Franko PRATEEK. We post dilated the proximal part of the stent with a 3.0x6mm NC balloon. At this time final angiogram was performed that showed excellent stent expansion, INESSA-3 flow and no residual stenosis. Guidewire and guide catheter were removed. Patient left the Zipper Setter Chainstitch in a stable condition. * Proximal Left Anterior Descendin% stenosis treated with a AB TREK 2.50X12 RX BALLOON, AMINA R FRANKO 2.75X15 PRATEEK, and MDT NC EUPHORA RX 3.99T48JA BALLOON. 0% residual stenosis, INESSA: 3 flow. Conclusions 1. 50-year-old white male with history of coronary disease, status post PCI of the circumflex artery lesion in October 2019, history of diabetes, dyslipidemia and hypertension, presenting with increasing episodes of chest discomfort. Myocardial perfusion imaging revealed small areas of reversible defect in the distribution of the left anterior descending artery. In view of the patient's ongoing symptoms, in order to further evaluate his coronary status, a cardiac catheterization was recommended. Patient underwent left heart catheterization with left and right coronary angiogram and LV angiogram today. The findings are as follows. 2. Patient was found to have a high-grade fused lesions in the proximal to mid RCA. The distal RCA was found to be totally occluded. Grade 3 mhjf-rn-cehrz collaterals were noted during the left coronary injection. 60 to 70% diffuse eccentric narrowing of the proximal LAD. High-grade stenosis in the ostium of the first septal clerk carrier. Patent stented segment of the proximal circumflex artery, extending into the first obtuse marginal artery. Ejection fraction of 40 to 45%. Elevated LVEDP of 26 mmHg. 3. Discussed and reviewed the cardiac catheterization data with the Dr. Wyatt. It was thought to be appropriate to consider FFR of the proximal LAD lesion and possible PCI. Dr. Wyatt agreed with this plan and took over further management of this patient at this point. 4. FFR significantly abnormal with a value of 0.71. S/p successful revascularization with PRATEEK x 1. 5. Proximal Left Anterior Descending was treated with a Balloon, Drug Eluting Stent, and Balloon. Recommendations * Transfer to [facility]. * Aspirin and Plavix for atleast 1 year. * High intensity statin therapy. * Aggressive risk factor control. * Follow up with Dr Li in office in 4 weeks. Interventional RX Recommendation: PCI w/o planned CABG Diagnostic RX Recommendation: PCI w/o planned CABG Anticoagulation: Heparin Ventriculography Ejection Fraction: 40.0 % LV EDP: 26 mmHg Left Ventriculography Findings: * The LV gram was performed in the ANGEL projection. The LV cavity appears to be of normal size. There is moderate hypokinesia of the basal inferior segment. Mild hypokinesia of the apical inferior wall segment. Mild diffuse hypokinesia anteroapical region also was noted. Overall ejection fraction around 40 to 45%. The LVEDP was 26 mmHg, prior to the LV angiogram and went up to 30 mmHg following the LV angiogram. There was no filling defects. No significant mitral valve prolapse or mitral regurgitation. Pressures Phase:Rest AO : 127 / 91 ( 109 ) @ 6:20:00 AM 164 / 91 ( 123 ) @ 6:33:00 AM 167 / 90 ( 123 ) @ 6:58:00 AM LV : 165 / -4 / 26 @ 6:32:00 AM 163 / 5 / 32 @ 6:33:00 AM Clinical Evaluation EBL: 5mL-10mL Procedural Details Procedure Consent Obtained. Pre-Procedure Time Out. Identified patient by full name and date of as verbalized by the patient/guarantor. Does the consent match the physician's order: Yes. Accurate & Complete Informed Consent: Yes. Inpatient/Outpatient History & Physical on Chart: Yes. If H&P is completed, is and addenduem needed: No; If yes, is the addendum complete: N/A. Visualize and Verify Site with Patient/Guarantor: N/A. Relevant Radiology Images available: N/A. Pre-op teaching completed and patient verbalized understanding. The risks, benefits, and alternatives of sedation and/or procedure were discussed by physician. The patient agrees to continue. Procedure started. [facility] Clinical Fraility Score: 4: Vulnerable. Zipper Setter Chainstitch Indications: Worsening Angina. Chest Pain Symptom Assessment: Typical Angina Symptoms. Cardiovascular Instability: No. Correct patient, site and procedure confirmed by cath team. PERRLA. 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 Lungs clear x 5 lobes. IV Site on Arrival: 18 gauge in the left anticubital. IV Fluids: 0.9% NaCl at KVO. 0 mL infused prior to nursery laborer. Pre Procedural Pulses: right dorsalis pedis was 3+. Pre Procedural Pulses: left dorsalis pedis was Doppled. Pre Procedural Pulses: right posterior tibial was Absent. Pre Procedural Pulses: left posterior tibial was Doppled. Pre Procedural Pulses: bilateral radial was 3+. Oxygen started at 2liters/min via nasal canula. right groin was prepped with chloroprep then draped in the usual sterile fashion. right radial was prepped with chloroprep then draped in the usual sterile fashion. Baseline sample Acquired. HR: 83 BPM. Equipment: 6F - Radial. Cardiac Cath Pack. ACIST Manifold Kit Model BT 2000. Heparinized Saline (2 units/mL), 1000 mL bag. Physician arrived. Physician scrubbed in. Immediate Pre-Procedure Time Out. Correct Patient: Yes; Correct Procedure: Yes; Correct Site: Yes; Correct Patient Position: Yes; Correct Supplies: Yes; Dried Flammable Prep: Yes; Blood Products Available: N/A;. Lidocaine 1% infiltrated to the right radial. Arterial access obtained. A 5 congolese David catheter in over wire. Multiple views taken of left coronary artery. Called Dr Wyatt to come view films. Catheter redirected to the RCA. Catheter removed over the exchange wire. A 5 congolese JR4 catheter in over wire. Multiple views taken of right coronary artery. Catheter removed over the exchange wire. A 5 congolese Angled Pig catheter in over wire. Dr Wyatt arrived. EDP Sample taken: LV 165/-5,26; HR: 88 BPM; SpO2: 99%. LV gram performed in ANGEL @ 10 mL/second for a total of 30 mL. EDP Sample taken: LV 163/5,32; HR: 88 BPM; SpO2: 99%. Pullback taken: LV Off; AO Off; Mean: , Peak to Peak: , SEP: ; HR: 87 BPM; SpO2: 99%. Catheter removed over the exchange wire. Dr Li scrubbed out to discuss case with Dr Wyatt. Dr. Wyatt scrubbed in to perform intervention. Inventory is CRD 6 FR XB 3.5 GUIDE. 6 congolese XB 3.5 guide catheter was inserted over the wire. FFR guidewire was advanced through the guide catheter to lesion in the prox LAD. An FFR value of 0.71 was obtained for a lesion located at Prox LAD. Fractional flow reserve measurements obtained. Wire out. Runthrough guidewire was advanced through the guide catheter to lesion in the prox LAD. Inflation number : 1 A AB TREK 2.50X12 RX BALLOON was prepped and advanced across the Prox LAD , then inflated to 12 DARRIUS for 0:24 seconds. Inflation number: 2 The AB TREK 2.50X12 RX BALLOON was reinflated across the Prox LAD, to 12 DARRIUS for 0:20 seconds. Balloon out. Results checked. Inflation Number : 3 A MDT R FRANKO 2.75X15 PRATEEK -Lot Number# [id number] exp date 10/16/2022 was prepped and advanced across the Prox LAD. The stent was deployed at 14 DARRIUS for 0:37 seconds. Stent balloon out over wire. Inflation number : 4 A MDT NC EUPHORA RX 3.04F98EE BALLOON was prepped and advanced across the Prox LAD , then inflated to 12 DARRIUS for 0:23 seconds. Inflation number: 5 The MDT NC EUPHORA RX 3.89S88RE BALLOON was reinflated across the Prox LAD, to 12 DARRIUS for 0:21 seconds. Balloon out. Results checked. Wire out. Results checked. ACT drawn. Results 306 seconds. Therapeutic limits - pre-heparin administration 90-150 seconds and monitoring heparin during a vascular procedure >250 seconds. Guide catheter out. Physician scrubbed out. A TR Band was successful obtaining hemostatsis at the Right Radial artery insertion site. TR band placed. Hemostasis obtained. Post Procedure: Pulses reassessed and unchanged. PERRLA. 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 No VTE prophylaxis required. Total IV fluids: 328 mL. Contrast type used: Omnipaque 300 mgI/mL, 500 mL bottle. Post-op diagnosis: severe Prox LAD stenosis. Complications: none. Estimated blood loss: 5mL-10mL. Procedure completed. Patient transferred by wheelchair to 1st floor. Medication's Wasted: Lidocaine 1% = 18 mL. Medication's Wasted: Nitro = 49.6 mg. Medication's Wasted: Heparin = 1000 units. Medication's Wasted: Other = adenosine 76 mg. Vital chart was stopped. Access Site Site: Right Radial artery Sheath Size: 6 Fr Hemostasis Method: TR Band Hemostasis Success: Successful Procedure Medications Start: 7:08 AM Stop: 7:08 AM Medication: Versed Amount: 1 mg Route: I.V. Start: 7:08 AM Stop: 7:08 AM Medication: Fentanyl Amount: 50 mcg Route: I.V. Start: 7:01 AM Stop: 7:01 AM Medication: Versed Amount: 1 mg Route: I.V. Start: 7:01 AM Stop: 7:01 AM Medication: Fentanyl Amount: 50 mcg Route: I.V. Start: 7:15 AM Stop: 7:15 AM Medication: Nitrogylcerin Amount: 200 mcg Route: I.A. Start: 7:15 AM Stop: 7:15 AM Medication: Verapamil Amount: 5 mg Route: I.A. Start: 7:15 AM Stop: 7:15 AM Medication: 0.9% Saline Amount: 250 ml Route: I.V. bolus Start: 7:20 AM Stop: 7:20 AM Medication: Heparin Amount: 5000 units Route: I.V. Start: 7:44 AM Stop: 7:44 AM Medication: Heparin Amount: 3000 units Route: I.V. Start: 7:59 AM Stop: 7:59 AM Medication: Versed Amount: 1 mg Route: I.V. Start: 7:59 AM Stop: 7:59 AM Medication: Fentanyl Amount: 50 mcg Route: I.V. Start: 8:07 AM Stop: 8:07 AM Medication: Heparin Amount: 2000 units Route: I.V. Start: 8:18 AM Stop: 8:18 AM Medication: Nitrogylcerin Amount: 200 mcg Route: I.C. Start: 8:28 AM Stop: 8:28 AM Medication: Plavix Amount: 300 mg Route: P.O. I, the attending physician, have reviewed and verified all procedure medications. Yes, all medications given per verbal order History/Risk Factors Hypertension: Yes Dyslipidemia: Yes Peripheral Arterial Disease (PAD): No Myocardial Infarction (WA): Yes Obesity: Yes Renal Disease: No Prior Interventions PCI: Yes CABG: No Valve Surgery: No Date of PCI: 11/11/2019 Report Signatures Interventional Workflow Finalized by Renny Wyatt MD on 01/25/2021 03:40 PM Diagnostic Workflow Finalized by Dr Shavonne Li MD [facility] on 01/25/2021 03:00 PM
[2021-01-25] MEDS: diphenhydrAMINE 50 mg Capsule PO (06:39)
--- NOTE | 2021-01-25 07:42 | W.PM.OPSUD ---
Surgery/Procedure H&P Update DATE OF PROCEDURE: January 25, 2021 DATE H&P PERFORMED: 12/28/20 H&P UPDATE INFORMATION: I have reviewed H&P completed within last 30 days, I have examined patient prior to procedure and No changes to prior documentation PREOP DIAGNOSIS: ASHD/abnormal stress test PLANNED PROCEDURE: Operation Date: 01/25/21 07:00 Proposed Procedures p left Cardiac Catheterization 21768 i25.10(Left) - Shavonne Li MD PATIENT REASSESSED PRIOR TO SEDATION, WITH NO CHANGE NOTED: Yes PHYSICAL EXAM: alert, oriented x 3, clear to auscultation bilaterally and regular rate & rhythm AIRWAY EVAL/ANESTHESIA PLAN: normal airway, see other exam findings, ASA II, Monitored Anesthesia, Local Anesthesia, Risks, benefits & alternatives of sedation and/or procedure discussed and Patient agrees to continue as planned
[2021-01-25] MEDS: magnesium oxide 400 mg tablet PO ×2 (10:15→20:19)
[2021-01-25] MEDS: gabapentin 100 mg Capsule PO ×2 (10:15→20:19)
[2021-01-25] MEDS: amlodipine 10 mg Tablet PO (10:15)
[2021-01-25] MEDS: pantoprazole DR 40 mg Tablet PO ×2 (10:15→18:00)
[2021-01-25] MEDS: carvedilol 25 mg Tablet PO ×2 (10:16→20:19)
--- NOTE | 2021-01-25 11:30 | PC.NURSE ---
Call placed to Dr. Guillermo wesley patient c/o pain along entire right arm. No evidence of hematoma. Positive radial and brachial pulses. VONNIE Guadarrama from entry level lab technician came over to inspect patient's arm and provide nurse consultation. He agreed there is no hematoma and positive pulses. Removed more air from TR band. Small amount of oozing at puncture site under the TR band.
[2021-01-25] MEDS: losartan 50 mg Tablet 100 MG PO (18:00)
[2021-01-25] MEDS: atorvastatin 40 mg Tablet 80 MG PO (18:02)
[2021-01-25] MEDS: trazodone 100 mg Tablet PO (20:19)
[2021-01-26 00:40] VITALS: BP 119/68; PULSE 81; RESP 12; TEMP 36.8; O2SAT 94
--- NOTE | 2021-01-26 00:46 | PC.NURSE ---
NS was running at 50 ml/hr upon arrival on shift. NS bag empty at this time and stopped due to being a one time order.
[2021-01-26 04:05] VITALS: BP 148/87; PULSE 78; RESP 20; TEMP 36.6; O2SAT 92
[2021-01-26 05:16] VITALS: PULSE 76
[2021-01-26 08:01] VITALS: BP 127/73; PULSE 80; RESP 13; TEMP 36.6; O2SAT 97
--- NOTE | 2021-01-26 08:31 | ECG_ITS ---
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 Measurements Intervals Center Rate: 76 P: -14 OK: 150 QRS: 2 QRSD: 104 T: 52 QT: 369 QTc: 415 Interpretive Statements SINUS RHYTHM INFERIOR MYOCARDIAL INFARCTION [40+ ms Q WAVE AND/OR ST/T ABNORMALITY IN II/aVF], PROBABLY OLD Compared to ECG 02/09/2020 18:42:18 Ventricular premature complex(es) no longer present Myocardial infarct finding still present Electronically Signed On 01-26-2021 16:33:19 CDT by Sarah Bates M.D. [id number]
--- NOTE | 2021-01-26 08:37 | PM.PN ---
Subjective Subjective: Interval history: This patient asymmetry hospital following the cardiac catheterization and PCI of the proximal LAD lesion. He remained asymptomatic throughout the hospital course. He had no hematoma bleeding from the radial arterial puncture site. His vital signs remained stable. No new symptoms. No significant arrhythmias on the monitor. Medications: Reviewed: Yes Medication Review Details: Current Medications Amlodipine Besylate (Amlodipine 10 Mg Tablet) 10 mg PO DAILY [facility] Last Admin: 01/25/21 10:15 Dose: 10 mg Documented by: Atorvastatin Calcium (Atorvastatin 40 Mg Tablet) 80 mg PO BID [facility] Last Admin: 01/25/21 18:02 Dose: 80 mg Documented by: Carvedilol (Carvedilol 25 Mg Tablet) 25 mg PO BID@0900,2100 [facility] Last Admin: 01/25/21 20:19 Dose: 25 mg Documented by: Clopidogrel Bisulfate (Clopidogrel 75 Mg Tablet) 75 mg PO DAILY [facility] Last Admin: 01/25/21 11:01 Dose: Not Given Documented by: Gabapentin (Gabapentin 100 Mg Capsule) 100 mg PO BID@0900,2100 [facility] Last Admin: 01/25/21 20:19 Dose: 100 mg Documented by: Losartan Potassium (Losartan 50 Mg Tablet) 100 mg PO DAILY@1800 [facility] Last Admin: 01/25/21 18:00 Dose: 100 mg Documented by: Magnesium Oxide (Magnesium Oxide 400 Mg Tablet) 400 mg PO BID@0900,2100 [facility] Last Admin: 01/25/21 20:19 Dose: 400 mg Documented by: Non-Formulary Medication (Glyburide) 10 mg PO BID [facility] Non-Formulary Medication (Liraglutide [Victoza 3-Erwin]) 1.8 mg SUBCUT Q24H [facility] Non-Formulary Medication (Potassium Gluconate) 595 mg PO DAILY [facility] Pantoprazole Sodium (Pantoprazole Dr 40 Mg Tablet) 40 mg PO BID [facility] Last Admin: 01/25/21 18:00 Dose: 40 mg Documented by: Trazodone HCl (Trazodone 100 Mg Tablet) 100 mg PO BEDTIME [facility] Last Admin: 01/25/21 20:19 Dose: 100 mg Documented by: Vitals/I&O/Wt Last Vital Signs Temp 97.8 F 01/26/21 08:01 Pulse 80 01/26/21 08:01 Resp 13 01/26/21 08:01 BP 127/73 01/26/21 08:01 Pulse Ox 97 01/26/21 08:01 01/25/21 01/26/21 01/26/21 22:59 06:59 14:59 Intake Total 980 / 1220 300 / 1520 240 / 240 Balance 980 / 1220 300 / 1520 240 / 240 Weight last 48 hrs Weight 228 lb Physical Exam Narrative: EXAM NARRATIVE: GENERAL: The patient is alert and oriented times three. Not in any acute distress. HEENT: No significant pallor, icterus or lymphadenopathy.Oral cavity: There are no mucous membrane lesions. NECK: Trachea appears to be central. No masses noted. No JVD or thyromegaly appreciated. RESPIRATORY: Chest is symmetrical. No intercostals muscle retraction or any accessory muscle activation. There is no chest wall tenderness. Breath sounds are heard bilaterally. No rales or rhonchi heard. No evidence of any consolidation. BREASTS: Deferred. HEART: The heart sounds are normal. No S3 or S4. No significant murmurs. No pericardial rub ABDOMEN: No vessel pulsations or distention. No tenderness. No organomegaly appreciated. Bowel sounds are normally heard. : Deferred. RECTAL: Deferred. LYMPHATIC: No lymphadenopathy noted in the neck or groin. EXTREMITIES: No edema or cyanosis. No clubbing. Peripheral pulses are palpated in fairly good volume and amplitude. No Hematoma or bleeding at the radial arterial puncture site MUSCULOSKELETAL: No acute joint deformities or swelling SKIN: There are no significant rashes or ecchymosis NEUROPSYCHIATRIC: The patient is alert and oriented x3. Appears to be in a good mood. No tremors or rigidity noted. 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 Has total occlusion of the distal right coronary artery. Patent stented segment of the circumflex artery. Currently he is remained stable. Has not had any recurrence of chest pain or any unusual shortness of breath, since the PCI. Status: Acute (2) Dyslipidemia associated with type 2 diabetes mellitus: Currently on the current medication. Apparently he has been taking the Lipitor 80 mg twice daily. He is advised to cut back the dose to 80 mg once a day. Status: Acute (3) Benign essential hypertension with target blood pressure below 140/90: Blood pressure has been staying in the normal range. Continue on the current medication. Status: Acute (4) Ischemic cardiomyopathy: He has not had any evidence of any cardiac decompensation. May continue on the current treatment measures. Status: Acute Attestations Medical Necessity Statement*: Since the patient is remaining stable with no new symptoms, he is being discharged home today. Please refer to the discharge orders for details Time Spent in Patient Care: 16 - 35 minutes Coding Level of Care Code Acute Pega Developer for Hazel Fwd Diagnoses Atherosclerotic heart disease of rincon coronary artery with other forms of angina pectoris I25.118 Dyslipidemia associated with type 2 diabetes mellitus E11.69; E78.5 Benign essential hypertension with target blood pressure below 140/90 I10 Ischemic cardiomyopathy I25.5
[2021-01-26] MEDS: amlodipine 10 mg Tablet PO (08:57)
[2021-01-26] MEDS: gabapentin 100 mg Capsule PO (08:58)
[2021-01-26] MEDS: atorvastatin 40 mg Tablet 80 MG PO (08:58)
[2021-01-26] MEDS: magnesium oxide 400 mg tablet PO (08:58)
[2021-01-26] MEDS: clopidogrel 75 mg Tablet PO (08:58)
[2021-01-26] MEDS: pantoprazole DR 40 mg Tablet PO (08:58)
[2021-01-26] MEDS: carvedilol 25 mg Tablet PO (08:58)
[2021-01-26 09:29] VITALS: BP 127/73; PULSE 80; RESP 13; TEMP 36.6; O2SAT 97
[2021-01-26 10:07] LABS: Anion Gap 14.1 (5-19); Blood Urea Nitrogen 12 mg/dL (6-20); Calcium 8.9 mg/dL (8.5-10.5); Carbon Dioxide 26 mmol/L (22-29); Chloride 101 mmol/L (98-107); Glomerular Filtration Rate 64.1 mL/min (90-130); Glucose 250 mg/dL (65-115); Osmolality Calculated 292 mOsm/kg (285-295); Potassium 4.1 mmol/L (3.5-5.1); Sodium 137 mmol/L (136-145)
--- NOTE | 2021-01-26 11:18 | PC.NURSE ---
Pt discharged home. Pts IV removed no redness or swelling noted. Pt tolerated well. Pts discharge instructions given along with prescriptions and follow up appointments. Pt verbalized understanding. Pt had no c/o pain or discomfort at the time of discharge.
--- NOTE | 2021-02-02 12:21 | PC.NURSE ---
Discharge packet printed for [facility].
== END 2021-01-26 09:53 | disposition home or self-care (01) ==
LOC: CCL 05:42 → CSU 07:06
PROVIDERS: Internal Medicine; Visit Provider Internal Medicine Cardiovascular Disease
DX: I25.118 Atherosclerotic heart disease of native coronary artery with other forms of angina pectoris (principal); E11.69 Type 2 diabetes mellitus with other specified complication; E78.5 Hyperlipidemia, unspecified; I10 Essential (primary) hypertension; I25.2 Old myocardial infarction
CPT/HCPCS: 36415; 80048; 85347; 93005; 93452; 93571; C1725; C1769; C1874; C1887; C1894; C9600; J0153; J1644; J2250; J3010; J3490; J7030; Q0163; Q9967

== ENCOUNTER → 2021-02-02 12:00 | Outpatient (BNVA) | payer SELFPAY | PROVIDERS: PCP Family Medicine; Visit Provider Nurse Practitioner Family | DX: I25.118 Atherosclerotic heart disease of native coronary artery with other forms of angina pectoris (principal); I25.5 Ischemic cardiomyopathy; I10 Essential (primary) hypertension | CPT/HCPCS: 80048 ==

== ENCOUNTER → 2021-03-11 16:19 | Outpatient (BNVA) | payer OTHER, SELFPAY | PROVIDERS: PCP Family Medicine; Visit Provider Family Medicine | DX: Z20.822 Contact with and (suspected) exposure to COVID-19 (principal) | CPT/HCPCS: 87635 ==

== ENCOUNTER → 2021-03-31 09:39 | Outpatient (BNVA) | payer SELFPAY | PROVIDERS: PCP Family Medicine; Visit Provider Family Medicine | DX: R53.83 Other fatigue; L02.91 Cutaneous abscess, unspecified; R68.83 Chills (without fever); Z20.822 Contact with and (suspected) exposure to COVID-19 | CPT/HCPCS: 71046; 80053; 85025 ==

== ENCOUNTER 2021-04-08 14:50 | Outpatient (CLI) | payer SELFPAY ==
--- NOTE | 2021-04-08 15:15 | XR_ITS ---
WS: [id number] AP standing views of both knees, 04/08/2021 Clinical Data: L knee pain Comparison: None. Findings: No joint space narrowing is seen. There are no fractures. There is an is no joint erosion. XR/[place] [id number] Impression: Negative AP views of both knees.
== END 2021-04-08 14:51 | disposition home or self-care (01) ==
PROVIDERS: PCP Family Medicine; Visit Provider Family Medicine
DX: M25.562 Pain in left knee (principal)
CPT/HCPCS: 73565

== ENCOUNTER 2021-04-15 11:45 | Outpatient (CLI) | payer SELFPAY ==
[2021-04-15 12:25] LABS: Chol HDL Ratio 3.46 mg/dL (1.0-5.00); Cholesterol 97 mg/dL (0-200); HDL Cholesterol 28 mg/dL (60-100); LDL Cholesterol Calculated 8 mg/dL (50-129); LDL HDL Ratio 0.29 RATIO (0.00-3.22); Triglycerides 303 mg/dL (0-150)
[2021-04-15 12:44] LABS: Estmated Average Glucose 194; Hemoglobin A1C 8.4 % (4.0-6.0)
== END 2021-04-15 11:46 | disposition home or self-care (01) ==
PROVIDERS: PCP Family Medicine; Visit Provider Internal Medicine
DX: E11.65 Type 2 diabetes mellitus with hyperglycemia (principal)
CPT/HCPCS: 36415; 80061; 83036

== ENCOUNTER 2021-04-26 12:51 | Outpatient (CLI) | payer SELFPAY ==
--- NOTE | 2021-04-26 13:00 | MR_ITS ---
WS: [id number] MRI LEFT KNEE NONCONTRAST TECHNIQUE: Axial PD, coronal PD fat sat, coronal PD, sagittal PD, and sagittal PD fat-sat images obta ined. CLINICAL INFORMATION: L knee pain, worsening. COMPARISON: None. FINDINGS: Distal quadriceps and patella tendons are intact. Hypertrophic patella. Normal ACL and PCL. Normal me dial and lateral meniscus. No acute appearing meniscal tears. Normal femoral condyles and tibial plateau. No evidence of contusion or subchondral edema. Mild chond romalacia medial and lateral joint compartments. Normal medial and lateral collateral ligaments. Normal popliteal fossa. Mild chondromalacia patella. MR/MR knee LT wo con* [id number] IMPRESSION: 1. Normal ACL and PCL. 2. Mild tricompartmental arthritis. 3. No acute appearing meniscal tears. Mild chronic thinning of the medial and lateral meniscus. 4. Mild chondromalacia patella. Hypertrophic patella. 5. No other significant findings. Outbridge grading: grade I: focal areas of hyperintensity with normal contour
== END 2021-04-26 12:52 | disposition home or self-care (01) ==
LOC: RADSHAW 12:56
PROVIDERS: PCP Family Medicine; Visit Provider Family Medicine
DX: M25.562 Pain in left knee (principal); M13.862 Other specified arthritis, left knee; M22.42 Chondromalacia patellae, left knee
CPT/HCPCS: 73721

== ENCOUNTER → 2021-05-17 11:49 | Outpatient (BNVA) | payer SELFPAY | PROVIDERS: PCP Family Medicine; Referring Provider Family Medicine; Visit Provider Specialist | DX: S89.90XA Unspecified injury of unspecified lower leg, initial encounter (principal); M17.12 Unilateral primary osteoarthritis, left knee; X58.XXXA Exposure to other specified factors, initial encounter | CPT/HCPCS: 73560; 73565 ==

== ENCOUNTER → 2021-05-19 16:16 | Outpatient (BNVA) | payer SELFPAY | PROVIDERS: PCP Family Medicine; Visit Provider Family Medicine | DX: M25.50 Pain in unspecified joint (principal) | CPT/HCPCS: 80053; 85025; 86038; 86140; 86200; 86431 ==

== ENCOUNTER → 2021-07-06 14:42 | Outpatient (BNVA) | payer SELFPAY | PROVIDERS: PCP Family Medicine; Visit Provider Internal Medicine | DX: E11.65 Type 2 diabetes mellitus with hyperglycemia (principal); E11.40 Type 2 diabetes mellitus with diabetic neuropathy, unspecified; E11.59 Type 2 diabetes mellitus with other circulatory complications; E11.22 Type 2 diabetes mellitus with diabetic chronic kidney disease; N18.2 Chronic kidney disease, stage 2 (mild); I25.10 Atherosclerotic heart disease of native coronary artery without angina pectoris; I25.5 Ischemic cardiomyopathy; Z87.19 Personal history of other diseases of the digestive system; E11.69 Type 2 diabetes mellitus with other specified complication; E78.5 Hyperlipidemia, unspecified; Z79.84 Long term (current) use of oral hypoglycemic drugs | CPT/HCPCS: 99213 ==

== ENCOUNTER → 2021-07-21 08:42 | Outpatient (BNVA) | payer SELFPAY | PROVIDERS: PCP Family Medicine; Visit Provider Internal Medicine | DX: E11.40 Type 2 diabetes mellitus with diabetic neuropathy, unspecified (principal); E11.65 Type 2 diabetes mellitus with hyperglycemia; E11.59 Type 2 diabetes mellitus with other circulatory complications; E11.69 Type 2 diabetes mellitus with other specified complication; E11.22 Type 2 diabetes mellitus with diabetic chronic kidney disease; N18.2 Chronic kidney disease, stage 2 (mild); I25.10 Atherosclerotic heart disease of native coronary artery without angina pectoris; I25.5 Ischemic cardiomyopathy; Z87.19 Personal history of other diseases of the digestive system; E78.5 Hyperlipidemia, unspecified | CPT/HCPCS: 99214 ==

== ENCOUNTER → 2021-08-30 09:05 | Outpatient (BNVA) | payer SELFPAY | PROVIDERS: PCP Family Medicine; Visit Provider Nurse Practitioner Family | DX: Z20.822 Contact with and (suspected) exposure to COVID-19 (principal) | CPT/HCPCS: 87635 ==

== ENCOUNTER → 2021-08-31 11:50 | Outpatient (BNVA) | payer SELFPAY | PROVIDERS: PCP Family Medicine; Visit Provider Family Medicine | DX: R53.82 Chronic fatigue, unspecified (principal); R53.1 Weakness; R06.02 Shortness of breath; I10 Essential (primary) hypertension; E11.65 Type 2 diabetes mellitus with hyperglycemia; I25.5 Ischemic cardiomyopathy | CPT/HCPCS: 80053; 83036; 84443; 84484; 85025; 86140 ==

== ENCOUNTER → 2021-09-27 16:49 | Outpatient (BNVA) | payer OTHER, SELFPAY | PROVIDERS: PCP Family Medicine; Visit Provider Nurse Practitioner Family | DX: R06.02 Shortness of breath (principal); E11.59 Type 2 diabetes mellitus with other circulatory complications; I25.10 Atherosclerotic heart disease of native coronary artery without angina pectoris | CPT/HCPCS: 80048; 83880; 85025 ==

== ENCOUNTER 2021-11-30 12:45 | Outpatient (CLI) | payer OTHER, SELFPAY ==
[2021-11-30 13:37] LABS: Bilirubin Urine Neg (Negative); Blood Urine Neg (Negative); Glucose Urine UA Norm (Normal); Ketones Urine Negative (Negative); Leukocyte Esterase Urine Negative (Negative); Nitrate Urine Negative (Negative); Protein Urine Neg (Negative); Urine Appearance Clear (CLEAR); Urine Color Yellow (Yellow); Urobilinogen Urine Norm (Negative); pH Urine 7 (5-7)
== END 2021-11-30 12:46 | disposition home or self-care (01) ==
LOC: LAB 12:49
PROVIDERS: Internal Medicine; PCP Family Medicine; Visit Provider Internal Medicine Hematology & Oncology
DX: R10.11 Right upper quadrant pain (principal)
CPT/HCPCS: 81001

== ENCOUNTER 2021-12-20 07:10 | Outpatient (CLI) | payer OTHER, MEDICAID, SELFPAY ==
--- NOTE | 2021-12-20 07:19 | US_ITS ---
WS: [id number] Complete ABDOMINAL ULTRASOUND HISTORY: RUQ, Epigastric pain COMPARISON: None available. Liver: 15.2 cm in length. The entire liver is poorly visualized due to severe hepatic steatosis. Live r appears top normal size. Marked coarse echotexture and attenuation. Portal Vein: Normal hepatopetal flow with monophasic waveform. Gallbladder: Normally distended with no gallstones, wall thickening or pericholecystic fluid. Gallbladder wall thickness: 0.2 cm. Pancreas: Not visualized. CBD: 0.5 cm. Right kidney: 11.3 cm x 6.0 cm x 7.2 cm. No mass, cortical thickening or hydronephrosis. Left kidney: 10.4 cm x 4.8 cm x 5.4 cm. No mass, cortical thickening or hydronephrosis. Spleen: Normal size and echogenicity. Abdominal aorta and IVC are within normal limits. No ascites. US/US abdomen complete* [id number] IMPRESSION: 1. Technically limited evaluation of the abdominal structures due to body habi tus. 2. Normal size liver with marked hepatic steatosis. The entire liver not visua lized. 3. Normal gallbladder. 4. Kidneys are negative. 5. Pancreas not visualized.
== END 2021-12-20 07:11 | disposition home or self-care (01) ==
PROVIDERS: PCP Family Medicine; Visit Provider Family Medicine
DX: R10.11 Right upper quadrant pain (principal); R10.13 Epigastric pain; R14.0 Abdominal distension (gaseous)
CPT/HCPCS: 76700

== ENCOUNTER 2021-12-28 15:55 | Outpatient (CLI) | payer OTHER, MEDICAID, SELFPAY ==
--- NOTE | 2021-12-28 16:13 | XR_ITS ---
WS: [id number] XR KUB [id number] REASON FOR EXAM: Epigastric pain, chest pain, worse with position changes. FINDINGS: Bowel gas pattern is unremarkable. No free air or retroperitoneal air is recognized. There appears to be a rounded calcific density between the transverse processes of L2 and L3 on the l eft. No other significant abdominal or pelvic abnormality. XR/XR KUB [id number] IMPRESSION: Equivocal finding in the left abdomen. Potentially this could represent a proxi mal left ureteral calculus by position. The appearance is atypical. This findin g is inconsistent with the history. Correlation with the presence of hematuria as clinically warranted.
== END 2021-12-28 15:56 | disposition home or self-care (01) ==
LOC: RAD 15:59
PROVIDERS: PCP Family Medicine; Visit Provider Family Medicine
DX: R14.0 Abdominal distension (gaseous) (principal); R10.13 Epigastric pain; R10.11 Right upper quadrant pain; R06.02 Shortness of breath
CPT/HCPCS: 74018

== ENCOUNTER 2021-12-30 09:32 | Outpatient (CLI) | payer OTHER, MEDICAID, SELFPAY ==
--- NOTE | 2021-12-30 10:01 | ECG_ITS ---
[facility] Test Date: 2021-12-30 Pat Name: Irving Powell Department: Room: Gender: Male Heel Dipper: : 1970 Requested By: Radha Redd Order Number: [id number] Cooper MD: Shavonne Li M.D. Interpretive Statements NAME OF STUDY: LEXISCAN SESTAMIBI STRESS TEST INDICATION: Chest Pain, PROCEDURE: At the baseline, the EKG revealed normal sinus rhythm with nonspecific T wave changes. Possible old inferior wall MN.. The baseline blood pressure was 139/90 mm Hg with a heart rate of 69 beats/min. Lexiscan was infused over a period of 20 seconds. A total of 0.4 milligrams of Lexiscan was infused. The stress phase was continued for a total of 5 minutes. Heart rate at the end of the stress phase was 75 with a blood pressure 122/78. The EKG at the peak infusion revealed no significant changes occasional PVCs are noted. Sestamibi was injected 20 seconds after the Lexiscan infusion. Blood pressure at the end of the recovery phase was 123/69 with a heart rate of 72 per minute. CONCLUSION: 1. No significant EKG changes with the LexiScan infusion 2. No LexiScan induced chest pain .occasional Lexiscan induced PVCs were noted . 3. Normal blood pressure and heart rate response 4. Sestamibi/sestamibi perfusion scan pending; see separate report. Electronically Signed On 01-06-2022 12:05:25 CDT by Shavonne Li M.D. [email or web address]
[2021-12-30 10:02] VITALS: BMI 35.4
--- NOTE | 2021-12-30 10:02 | NMCV_ITS ---
NM gracy perf SPECT r/s* [id number] Irving Powell Age: 51 Gender: M : 1970 Exam Date: 12/30/2021 10:42 Ordering Phys: Radha Redd Technologist: KAMRAN So Exam Location: [facility] Indications: CAD SHORTNESS OF BREATH STRESS TEST Please [facility] IMAGE PROTOCOL Rest/Stress 1 Lexiscan Day Radiopharmaceutical Dose (mCi) Administration Site Administered by Rest: Tc-99m 10.9 IV KAMRAN So Sestamibi Stress:Tc-99m 32.6 IV KAMRAN Etienne Sestamibi Rest: 30-Dec-2021 60 Discovery 630 Stress: 30-Dec-2021 30 Discovery 630 0.4mg Lexiscan. Images obtained in supine and prone position. SPECT RESULTS Technical Quality: Excellent Raw Data Analysis: Image Corrections: No attenuation or motion correction applied Summed Stress Score: 26 Summed Rest Score: 11 Summed Difference Score: 15 PERFUSION FINDINGS A large area of moderate to severely decreased tracer uptake in the basal, mid and apical inferior; mid and apical anterior, basal and mid inferoseptal, mid anteroseptal, and all the apical segments. Significant reversibility was noted in this region mainly in the anterior and inferior wall areas FUNCTIONAL RESULTS (calculated via Gated SPECT) Stress Image LV EF (%): 41 Stress EDV (mL):143 TID: 1.03 Stress ESV (mL):85 FUNCTIONAL FINDINGS: Segmental wall motion analysis revealed a diffuse hypokinesia of the inferior wall, septum and the LV apex IMPRESSIONS 1. Myocardial perfusion imaging revealing large area of moderate to severely decreases uptake in the inferior, anterior, inferoseptal, anteroseptal and apical regions with significant reversibility, suggesting ischemia, predominantly in the distribution of the right coronary artery and left anterior descending artery with some involvement of the circumflex artery territory. 2. Diminished LV ejection fraction of 41%. 3. Multiple wall motion normalities as mentioned above. 4. Mildly dilated LV cavity with LV end-systolic volume of 85 ml. Compared to the study from 12/07/2020, there is a significant increase in the ischemic burden Dr Shavonne Li MD FAC (Electronically Signed) Final Date: 02 Jan 2022 14:25 S
[2021-12-30] MEDS: regadenoson 0.4 Mg/5 ml Syringe IVP (11:25)
[2021-12-30 11:45] VITALS: BP 123/69; PULSE 69
== END 2021-12-30 09:33 | disposition home or self-care (01) ==
LOC: CDL 09:35
PROVIDERS: PCP Family Medicine; Visit Provider Nurse Practitioner Family
DX: R06.02 Shortness of breath (principal); I25.10 Atherosclerotic heart disease of native coronary artery without angina pectoris
CPT/HCPCS: 78452; 93017; A9500; J2785

== ENCOUNTER 2022-01-17 06:57 | Outpatient (CLI) | payer OTHER, MEDICAID, SELFPAY ==
[2022-01-17 07:19] LABS: Basophils # 0.1 10^3/uL (0.0-0.1); Basophils % 1.1 %; Eosinophils # 0.3 10^3/uL (0.0-0.8); Eosinophils % 4.7 %; Hematocrit 45.1 % (42.0-52.0); Hemoglobin 15.2 g/dL (11.7-16.6); Lymphocytes # 1.7 10^3/uL (0.8-4.8); Lymphocytes % 31.7 %; Mean Corpuscular HGB Conc 33.7 g/dL (30.0-36.0); Mean Corpuscular Hemoglobin 29.2 pg (28.0-34.0); Mean Corpuscular Volume 86.6 fl (80-94); Mean Platelet Volume 12.4 fL (7.4-10.4); Monocytes # 0.5 10^3/uL (0.2-0.9); Monocytes % 9.3 %; Neutrophils # 2.79 10^3/uL (1.8-7.7); Nucleated Red Blood Cells % 0 %; Platelet Count 144 10^3/cmm (130-400); Red Blood Count 5.21 10^6/uL (4.1-5.3); Red Cell Distribution Width 13.2 % (12.1-15.1); White Blood Count 5.3 10^3/uL (4.0-10.0)
[2022-01-17 07:30] LABS: INR 0.97 (0.83-1.21); Prothrombin Time (Patient) 13.2 Seconds (12.0-15.1)
[2022-01-17 07:40] LABS: Anion Gap 12.9 (5-19); Blood Urea Nitrogen 17 mg/dL (6-20); Carbon Dioxide 25 mmol/L (22-29); Chloride 102 mmol/L (98-107); Glucose 312 mg/dL (65-115); Osmolality Calculated 295 mOsm/kg (285-295); Potassium 3.9 mmol/L (3.5-5.1); Sodium 136 mmol/L (136-145)
== END 2022-01-17 06:58 | disposition home or self-care (01) ==
LOC: LAB 06:58
PROVIDERS: PCP Family Medicine; Visit Provider Internal Medicine Cardiovascular Disease
DX: I25.119 Atherosclerotic heart disease of native coronary artery with unspecified angina pectoris (principal)
CPT/HCPCS: 36415; 80048; 85025; 85610; 86850; 86900

== ENCOUNTER 2022-01-18 05:30 | Outpatient (CLI) | payer OTHER, MEDICAID, SELFPAY ==
[2022-01-18] MEDS: diphenhydrAMINE 50 mg Capsule PO (06:27)
[2022-01-18 06:28] VITALS: BP 137/93; PULSE 70; RESP 16; TEMP 37; O2SAT 95; BMI 35.4
[2022-01-18 06:46] LABS: Anion Gap 15.8 (5-19); Blood Urea Nitrogen 16 mg/dL (6-20); Calcium 9.1 mg/dL (8.5-10.5); Carbon Dioxide 24 mmol/L (22-29); Chloride 100 mmol/L (98-107); Glomerular Filtration Rate 37.6 mL/min (90-130); Glucose 236 mg/dL (65-115); Osmolality Calculated 291 mOsm/kg (285-295); Potassium 3.8 mmol/L (3.5-5.1); Sodium 136 mmol/L (136-145)
--- NOTE | 2022-01-18 07:08 | USCV_ITS ---
Andre Irving Age: 51 Gender: M : 1970 Exam Date: 01/18/2022 07:44 Ordering Phys: Shavonne Li MD Technologist: PARISH [place] [facility] [place]: abnormal labs Aortic Velocity @ SMA (cm/s) 60.7 RIGHT KIDNEY LEFT KIDNEY Velocity (cm/s) Velocity (cm/s) Sys/Felmdan Sys/Feldman Resistive Index Resistive Index 58.0 / 24.7 0.57 Proximal Renal Artery 79.3 / 24.0 0.70 86.8 / 42.1 0.51 Mid Renal Artery 139.6 / 37.6 0.73 63.6 / 24.0 0.62 Distal Renal Artery 111.7 / 26.9 0.76 31.2 / 12.4 0.60 Upper Pole 34.6 / 12.1 0.65 74.4 / 23.1 0.69 Mid Pole 73.5 / 25.6 0.65 38.0 / 15.7 0.59 Lower Pole 74.4 / 28.9 0.61 1.40 Renal Aortic Ratio 2.30 117.4 Kidney Length (mm) 104.0 CONCLUSIONS No sonographic evidence of hemodynamically significant renal artery stenosis bilaterally. Normal Resistive Indices. Right Renal measures 11.7 x 5.5 x 5.7cm Left Renal measures 10.4 x 5.4 x 6.5 cm Prostate measures 2.7 x 4.8 x 2.8cm No significant postvoid residual Barry Alejandra MD (Electronically Signed) Final Date: 18 January 2022 16:49 S
--- NOTE | 2022-01-18 07:09 | PM.MISC ---
Miscellaneous Note Purpose of Documentation: Procedure cancellation documentation Note: This patient has a history of atherosclerotic heart disease had a recent myocardial perfusion imaging which was found to be abnormal. He came to the hospital for an outpatient cardiac catheterization. He was found to have an abnormal BUN/creatinine. He was advised for increase oral fluid intake yesterday. The lab was repeated this morning. His creatinine went up from 1.8-1.9 today. The BUN was 16. The elevated creatinine is the highest that he ever had, based on his hospital records. The creatinine level is trending upwards. For this reason, it was decided to cancel the procedure. He needs a nephrology evaluation. We will try to do a renal arterial Doppler examination today, if possible. I discussed with the patient and his in detail the implications of the current lab findings and the reason to cancel the procedure. Patient and the family understand this well. We may consider doing this at a later date. The patient has no chest pain at this point. His main symptom is worsening of the shortness of breath. While waiting for the work-up, if the symptoms gets worse or if you develop any new symptoms, he is advised to contact our office. Patient is going to discuss with his primary care provider about a possible nephrology consult.
--- NOTE | 2022-01-18 08:50 | PC.NURSE ---
due to elevated creatinine procedure will be postponed. order renal ultrasound to be completed today. order placed.
== END 2022-01-18 05:31 | disposition home or self-care (01) ==
PROVIDERS: PCP Family Medicine; Visit Provider Internal Medicine Cardiovascular Disease
DX: R94.4 Abnormal results of kidney function studies (principal)
CPT/HCPCS: 80048; 93975; J1644; J2250; J3010; J3490; J7030; Q0163

== ENCOUNTER → 2022-01-24 13:42 | Outpatient (BNVA) | payer OTHER, MEDICAID, SELFPAY | PROVIDERS: PCP Family Medicine; Visit Provider Family Medicine | DX: E11.21 Type 2 diabetes mellitus with diabetic nephropathy (principal); N28.9 Disorder of kidney and ureter, unspecified | CPT/HCPCS: 81003; 82043; 84300 ==

== ENCOUNTER 2022-01-26 11:48 | Outpatient (CLI) | payer OTHER, SELFPAY ==
[2022-01-26 13:19] LABS: Total Volume Urine 2900 ml
[2022-01-26 13:56] LABS: Sodium, Urine Result 58 mmol/L; Urine Creatinine 68 mg/dL (39-259)
[2022-01-26 14:47] LABS: Microalbumin Result 1.2 mg/dL; Total Volume, Urine 2900 mL
[2022-01-26 17:18] LABS: Total Volume, Urine 2900 mL
[2022-01-26 17:43] LABS: Microalbumin 24 Hour Result 35 mg/24HR (0-30); Microalbumin Total Volume 2900 mL
[2022-01-26 18:02] LABS: Urine Total Protein 4.2 mg/dL (0-150); Urine Total Protein 24 Hour 121.8 mg/24hr (0-150)
== END 2022-01-26 11:49 | disposition home or self-care (01) ==
PROVIDERS: PCP Family Medicine; Visit Provider Family Medicine
DX: E11.21 Type 2 diabetes mellitus with diabetic nephropathy (principal); N28.9 Disorder of kidney and ureter, unspecified
CPT/HCPCS: 82043; 82570; 84156; 84300

== ENCOUNTER 2022-03-13 15:25 | Outpatient (CLI) | payer OTHER, MEDICAID, SELFPAY ==
[2022-03-13 16:30] LABS: Blood Urea Nitrogen 16 mg/dL (6-20); Calcium 9.7 mg/dL (8.5-10.5); Carbon Dioxide 24 mmol/L (22-29); Chloride 101 mmol/L (98-107); Glomerular Filtration Rate 53.4 mL/min (90-130); Glucose 245 mg/dL (65-115); Osmolality Calculated 295 mOsm/kg (285-295); Sodium 138 mmol/L (136-145)
== END 2022-03-13 15:26 | disposition home or self-care (01) ==
LOC: LAB 15:30
PROVIDERS: PCP Family Medicine; Visit Provider Nurse Practitioner Family
DX: E11.22 Type 2 diabetes mellitus with diabetic chronic kidney disease (principal); N18.30 Chronic kidney disease, stage 3 unspecified
CPT/HCPCS: 36415; 80048

== ENCOUNTER 2022-03-24 09:33 | Outpatient (CLI) | payer OTHER, MEDICAID, SELFPAY ==
--- NOTE | 2022-03-24 10:00 | NM_ITS ---
WS: [id number] NUCLEAR MEDICINE HIDA SCAN WITH GALLBLADDER EJECTION FRACTION HISTORY: Abdominal pain. COMPARISON: Ultrasound 12/20/2021 TECHNIQUE: The patient was intravenously injected with 7.3 mCi of TC99m Mebrofenin. Immediate imaging over the right upper quadrant was followed by 5 minute image and additional images for a total of 60 minutes. Normal uptake of radiotracer throughout the liver. Activity identified in the gallbladder at 15 minutes and well distended by 60 minutes. Activity in the proximal small bowel was seen by 30 minutes. Good washout of the radiotracer from the liver by 60 minutes. The patient then drank 8 ounces of Ensure Plus. Ejection fraction at 60 minutes was 86%. Normal GB ej ection fraction is 35-75%. Post fatty meal symptoms: None. NM/NM hepatobiliary w phar* [id number] IMPRESSION: 1. Normal HIDA scan. 2. Normal gallbladder ejection fraction.
== END 2022-03-24 09:34 | disposition home or self-care (01) ==
LOC: RAD 09:38
PROVIDERS: PCP Family Medicine; Visit Provider Surgery
DX: R10.13 Epigastric pain (principal)
CPT/HCPCS: 78227; A9537

== ENCOUNTER → 2022-04-05 16:10 | Outpatient (BNVA) | payer OTHER, MEDICAID, SELFPAY | PROVIDERS: PCP Family Medicine; Visit Provider Internal Medicine Cardiovascular Disease | DX: R06.02 Shortness of breath (principal); E11.65 Type 2 diabetes mellitus with hyperglycemia; E11.69 Type 2 diabetes mellitus with other specified complication; E78.5 Hyperlipidemia, unspecified; I25.119 Atherosclerotic heart disease of native coronary artery with unspecified angina pectoris; I25.5 Ischemic cardiomyopathy | CPT/HCPCS: 80048; 83880 ==

== ENCOUNTER 2022-04-13 05:39 | Outpatient (CLI) | payer OTHER, MEDICAID, SELFPAY ==
[2022-04-13] VITALS (35 sets, daily range): BP systolic 91–159; BP diastolic 52–104; PULSE 0–77; RESP 0–20; TEMP 36.6–36.8; O2SAT 94–97; BMI 36.1
[2022-04-13 06:50] LABS: Basophils # 0.1 10^3/uL (0.0-0.1); Eosinophils # 0.3 10^3/uL (0.0-0.8); Eosinophils % 4.4 %; Hematocrit 45.8 % (42.0-52.0); Hemoglobin 14.9 g/dL (11.7-16.6); Lymphocytes % 28.1 %; Mean Corpuscular HGB Conc 32.5 g/dL (30.0-36.0); Mean Corpuscular Hemoglobin 29.4 pg (28.0-34.0); Mean Corpuscular Volume 90.3 fl (80-94); Mean Platelet Volume 12.4 fL (7.4-10.4); Monocytes # 0.6 10^3/uL (0.2-0.9); Monocytes % 8.6 %; Neutrophils # 4.02 10^3/uL (1.8-7.7); Neutrophils % 57.6 %; Nucleated Red Blood Cells % 0 %; Platelet Count 151 10^3/cmm (130-400); Red Blood Count 5.07 10^6/uL (4.1-5.3); Red Cell Distribution Width 13.2 % (12.1-15.1)
--- NOTE | 2022-04-13 07:00 | XACV_ITS ---
Ht: 173 cm Wt: 103 kg BSA: 2.27 m2 Gender: Male : 1970 Any Known Allergies: No known allergies Exam Priority: Routine Procedure(s): Procedure Description: Diagnostic procedure Procedure Description: PCI procedure Procedure Description: Left ventriculography Procedure Description: Drug Eluting Coronary Stent Procedure Description: Coronary Angiography Guillermo SHAFFER; Diagnostic Cath Status: Elective Diagnostic Findings * Left main is a medium caliber vessel with no significant stenotic lesions. * The left anterior descending artery is a medium caliber vessel, has already critical 90% stenosis in the proximal segment, just proximal to the stented area. The first septal operations intelligence was found to have around 70% ostial narrowing. Right after the first 2 diagonal branch, there was 50% narrowing in the left anterior descending artery. This segment of the LAD was found to be very tortuous. Delayed filling was noted in the distal segment of the artery. Mild diffuse disease was noted in the distal segment. No other significant stenotic lesions were noted. * The left circumflex artery is a medium caliber vessel which gives off a high obtuse marginal branch. A long stented segment was noted starting in the proximal segment of the circumflex artery extending into the proximal segment of the obtuse marginal branch. The circumflex artery beyond the first obtuse marginal artery was found to have around 50 to 60% narrowing involving the ostium. The distal artery was found to have minimal intimal irregularities. Grade 2 left-sided collaterals were noted filling of the PLV branch of the right coronary artery. * The right coronary artery is a medium caliber dominant vessel which was found to have a tapering narrowing of 70% proximally. The mid RCA was found to have moderate diffuse disease. After the second RV branch, the artery appears to be completely occluded. PCI Status: Elective PCI LVEF Assessed: No PCI Indication: New Onset Angina <= 2 months Interventional Findings * Patient developed a new lesion greater than 95% stenosis proximal to the previously placed stent in the LAD. Initially, I started with a 3.5 Ecuadorean guide since that was what was used to place the original stent. This was clearly too large. As I was moving the guide down the aorta and prior to getting the tip of the guide anywhere near the left main, the patient developed ST segment elevation in lead II. He then developed chest discomfort, diaphoresis and bradycardia. Eventually he had a junctional rhythm at a rate of about 30. I gave him a milligram of atropine. This improved the heart rate and ultimately his ST segments started to come down. This was clearly ischemia in the distribution of the right coronary artery. I switched the guide out to a 3.0 Ecuadorean guide, placed in the ostium of the LAD. The LAD was still open. I went ahead and stented the proximal LAD with a 3.0 mm x 8 mm stent without incident. There was still good collateral flow to the distal right from both the LAD and circumflex. * I then decided to take a look at the right coronary artery again. I did a simple diagnostic view of the right which revealed it was the same as it was prior to the intervention. I had been asked by the general lease examiner to stent the proximal right which I was reluctant to do since the distal vessel is closed and there are good collaterals. Given the incident described above I decided not to proceed with any kind of intervention to the right. * I am not 100% sure what happened with the distribution of the right but my best estimate is a small atherosclerotic plaque was discharged by the guide as I was placing it initially which went down the right coronary artery. The situation resolved on its own. The other possibility is spasm but I think that is less likely given it happened while I was moving the guide down the aorta toward the aortic valve. Decision for PCI with Surgical Consult: No PCI for Multi-vessel Disease: No Conclusions 1. This is a 51-year-old white male with a history of high blood pressure, dyslipidemia, type 2 diabetes and atherosclerotic heart disease, status post recent PCI in January 2022(PCI of the proximal to mid LAD), presented with increasing episodes of chest pain. He had a Myocardial perfusion imaging which revealed a moderate area of ischemia involving the distribution of the left anterior descending artery and right coronary artery. Because of the patient's increasing episodes of symptoms, in order to further evaluate the coronary status, a repeat cardiac catheterization was recommended. Patient underwent left heart catheterization with left and right coronary angiogram today. The findings are as follows. 2. Critical stenosis of the proximal LAD, proximal to the stented area . The stented segment was found to be patent. The stented area of the circumflex artery also was found to be widely patent. Moderately severe stenosis in the proximal right coronary artery with a total occlusion of the distal RCA. Mild to moderate diffuse disease in the other vessels. LVEDP of 21 mmHg. 3. Based on the angiographic findings, it was thought to be appropriate to consider PCI of the proximal LAD lesion. Consideration also may need to be given to the proximal RCA lesion. I reviewed and discussed the cardiac catheterization data with the Dr. Rosales, who concurred with this plan. At this point, Dr. Rosales took over further management of this patient. For the details of the intervention, please refer to the report by . . Diagnostic RX Recommendation: PCI w/o planned CABG LV EDP: 21 mmHg Left Ventriculography Findings: * The LV gram was not performed because of the limitations on the dye usage. The LVEDP was 21 mmHg. Pressures Phase:Rest AO : 97 / 73 ( 87 ) @ 8:53:00 AM 137 / 78 ( 106 ) @ 8:57:00 AM 139 / 80 ( 107 ) @ 8:57:00 AM 140 / 97 ( 106 ) @ 9:20:00 AM 5 / -2 ( 0 ) @ 9:24:00 AM 115 / 91 ( 103 ) @ 9:33:00 AM 136 / 94 ( 110 ) @ 9:39:00 AM 129 / 105 ( 118 ) @ 9:40:00 AM LV : 142 / -1 / 21 @ 8:56:00 AM 141 / 1 / 21 @ 8:57:00 AM Valves Phase:DefaultPhase AV : 5.0 @ 8:52:38 AM 5.0 @ 8:52:38 AM AV Mean Gradient: 8.0 @ 8:52:38 AM 8.0 @ 8:52:38 AM Clinical Evaluation EBL: 5mL-10mL Procedural Details Procedure Consent Obtained. Admit Source: Out Patient. Pre-Procedure Time Out. Identified patient by full name and date of as verbalized by the patient/guarantor. Does the consent match the physician's order: Yes. Accurate & Complete Informed Consent: Yes. Inpatient/Outpatient History & Physical on Chart: Yes. If H&P is completed, is and addenduem needed: N/A; If yes, is the addendum complete: N/A. Visualize and Verify Site with Patient/Guarantor: N/A. Relevant Radiology Images available: N/A. Pre-op teaching completed and patient verbalized understanding. The risks, benefits, and alternatives of sedation and/or procedure were discussed by physician. The patient agrees to continue. Procedure started. [facility] Clinical Fraility Score: 3: Managing Well. 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 Chest Pain Symptom Assessment: Typical Angina Symptoms. Correct patient, site and procedure confirmed by cath team. Current diagnosis: Chest Pain, Positive Stress Test. PERRLA. Strong, equal hand chip washer bilaterally. Lungs clear x 5 lobes. IV Site on Arrival: 20 gauge in the left anticubital. IV Fluids: 0.9% NaCl at KVO. 500 mL infused prior to skill labor. Pre Procedural Pulses: bilateral dorsalis pedis was 1+. Pre Procedural Pulses: right radial was 1+. Oxygen started at 2liters/min via nasal canula. right groin was prepped with chloroprep then draped in the usual sterile fashion. right radial was prepped with chloroprep then draped in the usual sterile fashion. Baseline sample Acquired. HR: 61 BPM. Physician notified. Equipment: 5F - Radial. Cardiac Cath Pack. ACIST Manifold Kit Model BT 2000. Heparinized Saline (2 units/mL), 1000 mL bag. Inventory is Tero 5Fr [facility]. Physician arrived. Physician scrubbed in. Immediate Pre-Procedure Time Out. Correct Patient: Yes; Correct Procedure: Yes; Correct Site: Yes; Correct Patient Position: Yes; Correct Supplies: Yes; Dried Flammable Prep: Yes; Blood Products Available: N/A;. Ladi Farfan RN was relieved by Shana Saravia RN, [facility] as monitoring person. Lidocaine 1% infiltrated to the right radial. Arterial access obtained. A 5 indian David catheter in over the standard wire. Multiple views taken of left coronary artery. Catheter redirected to the RCA. Unable to cannulate the of right coronary artery. Catheter redirected to the LV. EDP Sample taken: LV 142/-2,21; HR: 83 BPM; SpO2: 98%. Pullback taken: LV 141/1,21; AO 137/78(106); Mean: 8mmHg, Peak to Peak: 5mmHg, SEP: 20sec/min; HR: 79 BPM; SpO2: 98%. Catheter removed over the standard wire. A 5 indian JR4 catheter in over the standard wire. Multiple views taken of right coronary artery. Catheter removed over the standard wire. Dr. Li Scrubbed out to view cineography with Dr. Rosales. 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 Dr. Rosales scrubbed in to perform intervention. Patient's family updated. 6 indian XB 3.5 guide catheter was inserted over the wire. Add inventory: Standard J wire. AP pads placed. Guide catheter out. 6 indian XB 3 guide catheter was inserted over the wire. [place] guidewire was advanced through the guide catheter to lesion in the prox LAD. Inflation Number : 1 A MDT R FRANKO 3.0X8 PRATEEK -Lot Number# [id number] was prepped and advanced across the Prox LAD. The stent was deployed at 12 DARRIUS for 0:25 seconds. Exp. . Stent balloon and wire out. Guide catheter out over the standard wire. A 5 indian JR4 catheter in over wire. Cine of the RCA performed. Catheter removed over the standard wire. A TR Band was successful obtaining hemostatsis at the Right Radial artery insertion site. TR band placed. Hemostasis obtained. Post Procedure: Pulses reassessed and unchanged. PERRLA. Strong, equal hand chip washer bilaterally. No VTE prophylaxis required. Medication's Wasted: Lidocaine 1% = 10 mL. Medication's Wasted: Nitro = 49.8 mg. Medication's Wasted: Heparin = 1000 units. Total IV fluids: 250 mL. Post-op diagnosis: PCI of the Prox LAD. Complications: none. Estimated blood loss: 5mL-10mL. Responsiveness - Normal response to verbal stimuli; alert and oriented, PERRLA. Airway - Unaffected, no intervention required; spontaneous ventilation. Circulation: W/N/L, pulses unchanged. Nausea/Vomiting: No. Patient's family updated. PCI Indication: Other. Procedure completed. Patient transferred by wheelchair to CPRU. Vital chart was stopped. Access Site Site: Right Radial artery Sheath Size: 6 Fr Hemostasis Method: TR Band Hemostasis Success: Successful Complication Findings: Probable plaque rupture of the proximal aorta with distal embolization down the right coronary artery, transient and resolved on its own. Procedure Medications Start: 7:43 AM Stop: 7:43 AM Medication: Versed Amount: 1 mg Route: I.V. Start: 7:43 AM Stop: 7:43 AM Medication: Fentanyl Amount: 50 mcg Start: 7:43 AM Stop: 7:43 AM Medication: Fentanyl Amount: 50 mcg Start: 7:49 AM Stop: 7:49 AM Medication: Verapamil Amount: 5 mg Route: I.A. Start: 7:49 AM Stop: 7:49 AM Medication: Nitrogylcerin Amount: 200 mcg Route: I.A. Start: 7:50 AM Stop: 7:50 AM Medication: Heparin Amount: 5000 units Route: I.V. Start: 8:19 AM Stop: 8:19 AM Medication: Versed Amount: 1 mg Route: I.V. Start: 8:24 AM Stop: 8:24 AM Medication: Atropine Amount: 1 mg Route: I.V. Start: 8:50 AM Stop: 8:50 AM Medication: Plavix Amount: 300 mg Route: P.O. Start: 8:50 AM Stop: 8:50 AM Medication: Aspirin Amount: 81 mg Route: P.O. I, the attending physician, have reviewed and verified all procedure medications. Yes, all medications given per verbal order History/Risk Factors Hypertension: Yes Dyslipidemia: Yes Peripheral Arterial Disease (PAD): Yes Myocardial Infarction (UT): No Obesity: Yes Renal Disease: No Tobacco Use: Current/Recent(w/in 1 year) Prior Interventions PCI: Yes CABG: No Valve Surgery: No Date of PCI: 01/25/2021 Report Signatures Diagnostic Workflow Finalized by Dr Shavonne Li MD [facility] on 04/14/2022 10:29 AM Interventional Workflow Finalized by Dr. Chandler Rosales MD on 04/13/2022 09:36 AM
--- NOTE | 2022-04-13 07:07 | W.PM.OPSUD ---
Surgery/Procedure H&P Update DATE OF PROCEDURE: April 13, 2022 DATE H&P PERFORMED: 04/05/22 H&P UPDATE INFORMATION: I have reviewed H&P completed within last 30 days, I have examined patient prior to procedure and No changes to prior documentation PREOP DIAGNOSIS: ASHD/abnormal stress test PRIMARY INDICATION FOR PROCEDURE: Chest pain and abnormal stress test. Status post PCI. PLANNED PROCEDURE: Operation Date: 04/13/22 08:00 Proposed Procedures p [facility] [address]054,I25.119,I25.10,R07.0,R06.02(Left) - Shavonne Li MD PATIENT REASSESSED PRIOR TO SEDATION, WITH NO CHANGE NOTED: Yes PHYSICAL EXAM: alert, oriented x 3, clear to auscultation bilaterally and regular rate & rhythm AIRWAY EVAL/ANESTHESIA PLAN: normal airway, see other exam findings, ASA III, Monitored Anesthesia, Local Anesthesia, Risks, benefits & alternatives of sedation and/or procedure discussed and Patient agrees to continue as planned
[2022-04-13 07:13] LABS: Anion Gap 16.9 (5-19); Blood Urea Nitrogen 17 mg/dL (6-20); Calcium 9.5 mg/dL (8.5-10.5); Carbon Dioxide 23 mmol/L (22-29); Chloride 102 mmol/L (98-107); Glomerular Filtration Rate 53.4 mL/min (90-130); Glucose 280 mg/dL (65-115); Osmolality Calculated 298 mOsm/kg (285-295); Potassium 3.9 mmol/L (3.5-5.1); Sodium 138 mmol/L (136-145)
[2022-04-13] MEDS: diphenhydrAMINE 50 mg Capsule PO (07:28)
--- NOTE | 2022-04-13 07:35 | PC.NURSE ---
pt was given bolus of ns of 250ml and then 100/hr til procedure time. pt taken tp laboratory associate at 0730.
[2022-04-13] MEDS: pantoprazole DR 40 mg Tablet PO (17:57)
[2022-04-13] MEDS: sacubitril/valsartan 24-26 mg Tablet 2 EACH PO (17:57)
[2022-04-13] MEDS: trazodone 100 mg Tablet PO (21:04)
[2022-04-14 01:10] VITALS: BP 120/65; PULSE 59; RESP 17; TEMP 36.7; O2SAT 96
[2022-04-14 05:31] VITALS: BP 114/58; PULSE 56; RESP 18; TEMP 36.6; O2SAT 100
[2022-04-14 05:33] VITALS: PULSE 0
[2022-04-14 07:49] VITALS: BP 147/74; PULSE 61; RESP 18; TEMP 36.4; O2SAT 96
--- NOTE | 2022-04-14 08:33 | P.PN_ITS ---
Subjective Subjective: The patient is admitted to hospital following the cardiac catheterization for IV hydration and close monitoring. He had an uneventful postprocedure course. Has not had any hematoma or bleeding at the arterial puncture site. Has not had any recurrence of chest pain. The vital signs remained stable. No new symptoms. The labs from this morning is pending. Medications: Medication Review Details: Current Medications Aspirin (Aspirin 81 Mg Ec Tablet) 81 mg PO DAILY [facility] Last Admin: 04/13/22 13:46 Dose: Not Given Atorvastatin Calcium (Atorvastatin 40 Mg Tablet) 80 mg PO DAILY [facility] Carvedilol (Carvedilol 25 Mg Tablet) 25 mg PO DAILY [facility] Last Admin: 04/13/22 13:48 Dose: Not Given Clopidogrel Bisulfate (Clopidogrel 75 Mg Tablet) 75 mg PO DAILY [facility] Duloxetine HCl (Duloxetine 30 Mg Capsule) 30 mg PO DAILY [facility] Magnesium Oxide (Magnesium Oxide 400 Mg Tablet) 400 mg PO DAILY [facility] Nitroglycerin (Nitroglycerin 0.4 Mg Sublingual Tablet) 0.4 mg SUBLINGUAL Q5M PRN PRN Reason: chest pain Non-Formulary Medication (Acarbose) 50 mg PO TID [facility] Last Admin: 04/13/22 21:04 Dose: Not Given Non-Formulary Medication (Dapagliflozin) 10 mg PO DAILY [facility] Last Admin: 04/13/22 13:44 Dose: Not Given Non-Formulary Medication (Fenofibrate) 160 mg PO DAILY [facility] Last Admin: 04/13/22 13:45 Dose: Not Given Non-Formulary Medication (Fenofibrate Micronized) 67 mg PO DAILY [facility] Last Admin: 04/13/22 13:45 Dose: Not Given Non-Formulary Medication (Potassium Gluconate) 595 mg PO DAILY [facility] Last Admin: 04/13/22 13:45 Dose: Not Given Pantoprazole Sodium (Pantoprazole Dr 40 Mg Tablet) 40 mg PO BID [facility] Last Admin: 04/13/22 17:57 Dose: 40 mg Pregabalin (Pregabalin 25 Mg Capsule) 25 mg PO DAILY [facility] Sacubitril/Valsartan (Sacubitril/Valsartan 24-26 Mg Tablet) 2 each PO BID [facility] Last Admin: 04/13/22 17:57 Dose: 2 each Trazodone HCl (Trazodone 100 Mg Tablet) 100 mg PO BEDTIME [facility] Last Admin: 04/13/22 21:04 Dose: 100 mg Vitals/I&O/Wt Last Vital Signs Temp 97.6 F 04/14/22 07:49 Pulse 61 04/14/22 07:49 Resp 18 04/14/22 07:49 BP 147/74 04/14/22 07:49 Pulse Ox 96 04/14/22 07:49 O2 Del Method 04/14/22 07:49 04/13/22 04/14/22 04/14/22 22:59 06:59 14:59 Intake Total 300 / 300 Balance 300 / 300 Weight last 48 hrs Weight 238 lb Physical Exam Narrative: GENERAL: The patient is alert and oriented times three. Not in any acute distress. HEENT: No significant pallor, icterus or lymphadenopathy.Oral cavity: There are no mucous membrane lesions. NECK: Trachea appears to be central. No masses noted. No JVD or thyromegaly appreciated. RESPIRATORY: Chest is symmetrical. No intercostals muscle retraction or any accessory muscle activation. There is no chest wall tenderness. Breath sounds are heard bilaterally. No rales or rhonchi heard. No evidence of any co nsolidation. BREASTS: Deferred. HEART: The heart sounds are normal. No S3 or S4. No significant murmurs. No pericardial rub ABDOMEN: No vessel pulsations or distention. No tenderness. No organomegaly appreciated. Bowel sounds are normally heard. : Deferred. RECTAL: Deferred. LYMPHATIC: No lymphadenopathy noted in the neck. EXTREMITIES: No edema or cyanosis. No clubbing. No hematoma bleeding of the arterial puncture site at the right wrist MUSCULOSKELETAL: No acute joint deformities or swelling SKIN: There are no significant rashes or ecchymosis NEUROPSYCHIATRIC: The patient is alert and oriented x3. Appears to be in a good mood. No tremors or rigidity noted. Data : 04/13/22 06:37 04/13/22 06:37 Other Labs: Laboratory Last Values WBC 7.0 10^3/uL (4.0-10.0) 04/13/22 06:37 RBC 5.07 10^6/uL (4.1-5.3) 04/13/22 06:37 Hgb 14.9 g/dL (11.7-16.6) 04/13/22 06:37 Hct 45.8 % (42.0-52.0) 04/13/22 06:37 MCV 90.3 fl (80-94) 04/13/22 06:37 MCH 29.4 pg (28.0-34.0) 04/13/22 06:37 MCHC 32.5 g/dL (30.0-36.0) 04/13/22 06:37 RDW 13.2 % (12.1-15.1) 04/13/22 06:37 Plt Count 151 10^3/cmm (130-400) 04/13/22 06:37 MPV 12.4 fL (7.4-10.4) H 04/13/22 06:37 Neut % (Auto) 57.6 % 04/13/22 06:37 Lymph % (Auto) 28.1 % 04/13/22 06:37 [place] % (Auto) 8.6 % 04/13/22 06:37 Eos % (Auto) 4.4 % 04/13/22 06:37 Baso % (Auto) 1.0 % 04/13/22 06:37 Neut # (Auto) 4.02 10^3/uL (1.8-7.7) 04/13/22 06:37 Lymph # (Auto) 2.0 10^3/uL (0.8-4.8) 04/13/22 06:37 [place] # (Auto) 0.6 10^3/uL (0.2-0.9) 04/13/22 06:37 Eos # (Auto) 0.3 10^3/uL (0.0-0.8) 04/13/22 06:37 Baso # (Auto) 0.1 10^3/uL (0.0-0.1) 04/13/22 06:37 Nucleated RBC % (auto) 0 % 04/13/22 06:37 Nucleated RBCs # 0.0 /100WBC 04/13/22 06:37 Sodium 138 mmol/L (136-145) 04/13/22 06:37 Potassium 3.9 mmol/L (3.5-5.1) 04/13/22 06:37 Chloride 102 mmol/L (98-107) 04/13/22 06:37 Carbon Dioxide 23 mmol/L (22-29) 04/13/22 06:37 Anion Gap 16.9 (5-19) 04/13/22 06:37 BUN 17 mg/dL (6-20) 04/13/22 06:37 Creatinine 1.4 mg/dL (0.7-1.2) H 04/13/22 06:37 GFR Calculation 53.4 mL/min (90-130) L 04/13/22 06:37 Glucose 280 mg/dL (65-115) H 04/13/22 06:37 Calculated Osmolality 298 mOsm/kg (285-295) H 04/13/22 06:37 Calcium 9.5 mg/dL (8.5-10.5) 04/13/22 06:37 A&P Assessment and plan (1) 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 Currently seems to be stable. As moderately severe disease in the proximal RCA with a total occlusion of the distal RCA. Patient had a symptomatic bradycardia yesterday/high degree AV block while attempting to do the PCI of the LAD lesion. Possibility of a coronary embolization was considered. Has not had any recurrence of bradycardia. There was decided not to intervene the RCA lesion at this point. We may consider doing a Myocardial perfusion imaging after 6 weeks and then decide on the need for RCA intervention. Try to optimize the medical treatment in the meanwhile. Status: Acute (2) Stage 3 chronic kidney disease due to type 2 diabetes mellitus: Repeat BMP this morning. If the kidney function is stable, will be discharged home. Status: Acute (3) Dyslipidemia associated with type 2 diabetes mellitus: Continue on the current medications Status: Acute (4) Benign essential hypertension with target blood pressure below 140/90: Currently normotensive. May continue on the current medications. Status: Acute Plan After reviewing the BMP results from this morning, further management decisions will be made. 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
[2022-04-14] MEDS: aspirin 81 mg EC Tablet PO (09:08)
[2022-04-14] MEDS: pantoprazole DR 40 mg Tablet PO (09:08)
[2022-04-14] MEDS: magnesium oxide 400 mg tablet PO (09:08)
[2022-04-14] MEDS: sacubitril/valsartan 24-26 mg Tablet 2 EACH PO (09:08)
[2022-04-14 10:05] LABS: Anion Gap 14.1 (5-19); Blood Urea Nitrogen 14 mg/dL (6-20); Carbon Dioxide 27 mmol/L (22-29); Chloride 101 mmol/L (98-107); Glomerular Filtration Rate 53.4 mL/min (90-130); Glucose 353 mg/dL (65-115); Osmolality Calculated 301 mOsm/kg (285-295); Potassium 4.1 mmol/L (3.5-5.1); Sodium 138 mmol/L (136-145)
[2022-04-14 12:00] VITALS: BP 134/84; PULSE 68; RESP 17; TEMP 36.6; O2SAT 97
--- NOTE | 2022-04-14 12:49 | PC.NURSE ---
Discharge Note Patient discharged to home via ambulation accompanied by spouse. Discharge instructions reviewed with patient and/or medical collections representative. Mobile pharmacy medications and/or prescriptions provided. Belongings/home medications returned.
== END 2022-04-14 12:50 | disposition home or self-care (01) ==
LOC: CCL 05:40 → MEDSURG 13:24
PROVIDERS: Internal Medicine Cardiovascular Disease; PCP Family Medicine; Visit Provider Internal Medicine Cardiovascular Disease
DX: I25.119 Atherosclerotic heart disease of native coronary artery with unspecified angina pectoris (principal); E11.22 Type 2 diabetes mellitus with diabetic chronic kidney disease; I12.9 Hypertensive chronic kidney disease with stage 1 through stage 4 chronic kidney disease, or unspecified chronic kidney disease; N18.30 Chronic kidney disease, stage 3 unspecified; E78.5 Hyperlipidemia, unspecified; Z95.5 Presence of coronary angioplasty implant and graft; E66.9 Obesity, unspecified; Z68.36 Body mass index [BMI] 36.0-36.9, adult; G47.33 Obstructive sleep apnea (adult) (pediatric); F17.210 Nicotine dependence, cigarettes, uncomplicated; Z79.82 Long term (current) use of aspirin
CPT/HCPCS: 36415; 80048; 85025; 93458; 96360; 99152; 99153; C1769; C1874; C1887; C1894; C9600; J0461; J1644; J2250; J3010; J3490; Q0163; Q9967

== ENCOUNTER → 2022-04-25 12:06 | Outpatient (BNVA) | payer OTHER, MEDICAID, SELFPAY | PROVIDERS: PCP Family Medicine; Visit Provider Nurse Practitioner Family | DX: E11.22 Type 2 diabetes mellitus with diabetic chronic kidney disease (principal); N18.30 Chronic kidney disease, stage 3 unspecified; I25.119 Atherosclerotic heart disease of native coronary artery with unspecified angina pectoris; E11.40 Type 2 diabetes mellitus with diabetic neuropathy, unspecified; E11.59 Type 2 diabetes mellitus with other circulatory complications; E11.65 Type 2 diabetes mellitus with hyperglycemia; I25.10 Atherosclerotic heart disease of native coronary artery without angina pectoris; Z87.19 Personal history of other diseases of the digestive system | CPT/HCPCS: 36415; 80048; 80053; 80061; 83721 ==

== ENCOUNTER 2022-05-31 08:43 | Outpatient (CLI) | payer OTHER, MEDICAID, SELFPAY ==
--- NOTE | 2022-05-31 | ECG_ITS ---
[facility] Test Date: 2022-05-31 Pat Name: Irving Powell Department: Room: Gender: Male Php Architect: Mabel MarionDona : 1970 Requested By: Shavonne Li Order Number: [id number] Reading MD: Shavonne Li M.D. Interpretive Statements NAME OF STUDY: LEXISCAN SESTAMIBI STRESS TEST INDICATION: Chest Pain, PROCEDURE: At the baseline, the EKG revealed sinus rhythm with a frequent PVCs. The baseline heart was 67 bpm with a blood pressue of 149/84 mm of Hg Lexiscan was infused over a period of 20 seconds. A total of 0.4 milligrams of Lexiscan was infused. The stress phase was continued for a total of 5 minutes. Heart rate at the end of the stress phase was 76 bpm with a blood pressure was not recorded. The EKG at the peak infusion revealed much less PVCs. Sestamibi was injected 20 seconds after the Lexiscan infusion. Heart rate at the end of the recovery phase was 72 bpm with a blood pressure of 130/84 mm of Hg. CONCLUSION: 1. No significant EKG changes with the LexiScan infusion 2. No LexiScan infusion because the less PVCs with the peak infusion 3. Normal blood pressure and heart rate response 4. Sestamibi/sestamibi perfusion scan pending; see separate report. Electronically Signed On 06-02-2022 16:16:25 CDT by Shavonne Li M.D. [email or web address]
[2022-05-31 09:01] VITALS: BMI 34.2
--- NOTE | 2022-05-31 09:03 | NMCV_ITS ---
NM gracy perf SPECT r/s* [id number] Irving Powell Age: 51 Gender: M : 1970 Exam Date: 05/31/2022 09:50 Ordering Phys: Shavonne Li MD ([email or web address]) Technologist: KAMRAN So Exam Location: [facility] Indications: ACUTE CORONARY THROMBOLIS STRESS TEST [facility] IMAGE PROTOCOL Rest/Stress 1 Lexiscan Day Radiopharmaceutical Dose (mCi) Administration Site Administered by Rest: Tc-99m 10.9 IV KAMRAN Etienne Sestamibi Stress:Tc-99m 32.0 IV KAMRAN Etienne Sestamibi Rest: 31-May-2022 60 Discovery 630 Stress: 31-May-2022 30 Discovery 630 0.4mg Lexiscan. Images obtained in supine and prone position. SPECT RESULTS Technical Quality: Excellent Raw Data Analysis: Normal Image Corrections: No attenuation or motion correction applied Summed Stress Score: 3 Summed Rest Score: 0 Summed Difference Score: 3 PERFUSION FINDINGS Small areas of slightly decreased tracer uptake in the apical lateral, mid inferior and LV apex. Some reversibility was noted in these regions. FUNCTIONAL RESULTS (calculated via Gated SPECT) Stress Image LV EF (%): 48 Stress EDV (mL):131 TID: 1.18 Stress ESV (mL):68 FUNCTIONAL FINDINGS: Segmental wall motion analysis revealed mild diffuse hypokinesia of the left ventricle. The transient ischemic dilatation ratio was 1.18 IMPRESSIONS 1. Myocardial perfusion imaging revealing small areas of slightly decreased tracer uptake in the mid inferior, apical lateral and LV apex suggesting ischemia in the distribution of the right coronary artery and circumflex artery 2. Slightly diminished lesion fraction of 48%. 3. LV wall motion analysis revealing mild diffuse hypokinesia of the left ventricle. 4. Mildly dilated LV cavity with an end-systolic volume was 68 ml No similar previous studies are available for comparison Dr Shavonne Li MD FAC (Electronically Signed) Final Date: 31 May 2022 17:09 S
[2022-05-31] MEDS: regadenoson 0.4 Mg/5 ml Syringe IVP (10:30)
[2022-05-31 10:43] VITALS: BP 130/84; PULSE 75
== END 2022-05-31 08:44 | disposition home or self-care (01) ==
LOC: CDL 08:48
PROVIDERS: PCP Family Medicine; Visit Provider Internal Medicine Cardiovascular Disease
DX: R07.9 Chest pain, unspecified (principal)
CPT/HCPCS: 78452; 93017; A9500; J2785

== ENCOUNTER 2022-06-05 20:00 | Outpatient (CLI) | payer OTHER, MEDICAID, SELFPAY | END 2022-06-05 20:01 | disposition home or self-care (01) | LOC: SLEEP 06-06 08:01 | PROVIDERS: PCP Family Medicine; Visit Provider Family Medicine | DX: R40.0 Somnolence (principal); R06.83 Snoring; I10 Essential (primary) hypertension; G47.33 Obstructive sleep apnea (adult) (pediatric) | CPT/HCPCS: 95810 ==

== ENCOUNTER 2022-08-04 06:17 | Day surgery (SDC) | payer OTHER, MEDICAID, SELFPAY ==
[2022-08-02 09:02] VITALS: BMI 36.5
[2022-08-04 06:35] VITALS: BP 159/75; PULSE 68; RESP 17; TEMP 36.6; O2SAT 95
[2022-08-04] MEDS: sodium chloride 0.9% 1,000 ML 30 ML IV (06:42)
[2022-08-04 06:45] LABS: Glucose Point of Care 110 mg/dL (70-110)
--- NOTE | 2022-08-04 08:17 | PC.NURSE ---
Patient had to be canceled because patient is on Plavix due to recent cardiac stent placement within the last [address] and [address] Mcarthur canceled patient due to taking Plavix. Patient will be rescheduled for a later date.
== END 2022-08-04 08:22 | disposition home or self-care (01) ==
LOC: GILAB 06:18
PROVIDERS: PCP Family Medicine; Visit Provider Surgery
DX: Z12.11 Encounter for screening for malignant neoplasm of colon (principal); R10.13 Epigastric pain; Z53.8 Procedure and treatment not carried out for other reasons
CPT/HCPCS: 36416; 82962; J7030

== ENCOUNTER 2022-08-15 15:12 | Outpatient (CLI) | payer OTHER, MEDICAID, SELFPAY ==
--- NOTE | 2022-08-15 15:44 | XR_ITS ---
WS: [email or web address] Left ankle, 3 views, 08/15/2022 Clinical Data: Pain in left ankle Comparison: None. Findings: No fractures or dislocations are seen. The ankle mortise is normal. The talus and calcaneus are unrem arkable. No soft tissue swelling over the medial or lateral malleolus is seen. There is a plantar spur. XR/XR ankle LT min 3V* [id number] Impression: Negative left ankle.
--- NOTE | 2022-08-15 15:44 | XR_ITS ---
WS: [email or web address] Left foot, 3 views, 08/15/2022 Clinical Data: PAIN IN LEFT FOOT Comparison: None. Findings: No fractures or dislocations are seen. No bone destruction or erosion is noted. The joint spaces and soft tissues are normal. There is an Achilles spur. XR/XR foot LT min 3V* [id number] Impression: Negative left foot.
== END 2022-08-15 15:13 | disposition home or self-care (01) ==
LOC: RAD 15:15
PROVIDERS: PCP Family Medicine; Visit Provider Nurse Practitioner Family
DX: M25.572 Pain in left ankle and joints of left foot (principal); M79.672 Pain in left foot; E78.2 Mixed hyperlipidemia; E11.22 Type 2 diabetes mellitus with diabetic chronic kidney disease; N18.30 Chronic kidney disease, stage 3 unspecified
CPT/HCPCS: 36415; 73610; 73630; 80053; 80061; 83036; 84439; 84443

== ENCOUNTER 2022-08-18 13:23 | Outpatient (CLI) | payer OTHER, MEDICAID, SELFPAY ==
[2022-08-18 14:49] LABS: Urine Creatinine 63 mg/dL (39-259)
[2022-08-18 16:30] LABS: Total Volume Urine 2800 ml
[2022-09-03 16:25] LABS: Free Cortisol Urine 41.6 mcg/24 h (4.0-50.0); Total Urine 2800 mL; Urine Creatinine 5.24 g/24 h (0.50-2.15)
== END 2022-08-18 13:24 | disposition home or self-care (01) ==
LOC: LAB 13:25
PROVIDERS: PCP Family Medicine; Visit Provider Internal Medicine
DX: R63.5 Abnormal weight gain (principal)
CPT/HCPCS: 82530; 82570

== ENCOUNTER → 2022-08-29 11:13 | Outpatient (BNVA) | payer OTHER, MEDICAID, SELFPAY | PROVIDERS: PCP Family Medicine; Visit Provider Internal Medicine Cardiovascular Disease | DX: R06.02 Shortness of breath (principal); R25.2 Cramp and spasm; I25.118 Atherosclerotic heart disease of native coronary artery with other forms of angina pectoris; E11.22 Type 2 diabetes mellitus with diabetic chronic kidney disease; I12.9 Hypertensive chronic kidney disease with stage 1 through stage 4 chronic kidney disease, or unspecified chronic kidney disease; N18.30 Chronic kidney disease, stage 3 unspecified; E11.40 Type 2 diabetes mellitus with diabetic neuropathy, unspecified; E78.5 Hyperlipidemia, unspecified; F17.200 Nicotine dependence, unspecified, uncomplicated; R00.2 Palpitations | CPT/HCPCS: 80048; 83735; 83880 ==

== ENCOUNTER 2022-09-05 12:56 | Outpatient (CLI) | payer OTHER, MEDICAID, SELFPAY ==
--- NOTE | 2022-09-05 13:13 | XR_ITS ---
WS: [email or web address] Left ankle, AP and lateral views, 09/05/2022 Clinical Data: Recurrent Left ankle sprain, left leg pain Comparison: None. Findings: No fractures or dislocations are seen. The ankle mortise is normal. The talus and calcaneus are unrem arkable. No soft tissue swelling over the medial or lateral malleolus is seen. There is an Achilles spur. XR/XR ankle LT 2V [id number] Impression: Negative left ankle.
--- NOTE | 2022-09-05 13:13 | XR_ITS ---
WS: [id number] Left leg including the tibia and fibula, AP and lateral views, 09/05/2022 Clinical Data: Recurrent Left ankle sprain, left leg pain Comparison: None. Findings: No fractures or dislocations are seen. The tibia and fibula are intact. The soft tissues are normal. There is a prominent tibial tubercle and spurring of the anterior superior left patella. XR/XR tibia fibula LT 2V [id number] Impression: Negative left leg.
== END 2022-09-05 12:57 | disposition home or self-care (01) ==
LOC: RAD 13:04
PROVIDERS: PCP Family Medicine; Visit Provider Family Medicine
DX: S93.402A Sprain of unspecified ligament of left ankle, initial encounter (principal); M79.605 Pain in left leg; X58.XXXA Exposure to other specified factors, initial encounter
CPT/HCPCS: 73590; 73600

== ENCOUNTER → 2022-09-27 14:35 | Outpatient (BNVA) | payer OTHER, MEDICAID, SELFPAY | PROVIDERS: PCP Family Medicine; Visit Provider Internal Medicine Cardiovascular Disease | DX: M79.605 Pain in left leg (principal); I45.6 Pre-excitation syndrome; E78.5 Hyperlipidemia, unspecified; R06.02 Shortness of breath; E11.22 Type 2 diabetes mellitus with diabetic chronic kidney disease; I12.9 Hypertensive chronic kidney disease with stage 1 through stage 4 chronic kidney disease, or unspecified chronic kidney disease; N18.9 Chronic kidney disease, unspecified | CPT/HCPCS: 36415; 80048; 80076; 82550; 83735; 83880; 84443 ==

== ENCOUNTER 2022-10-24 10:30 | Outpatient (CLI) | payer OTHER, MEDICAID, SELFPAY ==
--- NOTE | 2022-10-24 11:00 | USCV_ITS ---
Irving Powell Age: 52 Gender: M : 1970 Exam Date: 10/24/2022 10:52 Ordering Phys: Shavonne Li MD ([email or web address]) Technologist: Zaki Nugent Exam Location: [facility] [place] Indication: ventricular arrhythmia/ ASHD BP: 166 / 80 HR: 84 Rhythm: Sinus Technical Quality: Adequate MEASUREMENTS (Male / Female) Normal Values 2D ECHO LV Diastolic Diameter PLAX 3.6 cm 4.2 - 5.9 / 3.9 - 5.3 cm LV Systolic Diameter PLAX 2.2 cm IVS Diastolic Thickness 1.0 cm 0.6 - 1.0 / 0.6 - 0.9 cm IVS Systolic Thickness 1.2 cm LVPW Diastolic Thickness 1.0 cm 0.6 - 1.0 / 0.6 - 0.9 cm LVPW Systolic Thickness 1.2 cm LVOT Diameter 2.1 cm LV Ejection Fraction 2D Teich 70.8 % LV Ejection Fraction MOD 2C 60.5 % LV Ejection Fraction 2C AL 62.3 % LA Diameter 4.0 cm LA Width 3.5 cm LA Height 4.1 cm RA Width 3.4 cm RA Height 3.5 cm Aorta at Sinotubular Diameter 2.4 cm IVC Diameter 1.6 cm M-MODE Aortic Annulus Diameter 3.1 cm MV E Point Septal Separation 0.7 cm DOPPLER AV Peak Velocity 140.5 cm/s LVOT Peak Velocity 121.0 cm/s AV Area Cont Eq vti 2.8 cm squared AV Area Cont Eq pk 2.9 cm squared MV Peak Velocity 113.0 cm/s MV Area PHT 4.5 cm squared Mitral E to A Ratio 0.7 MV E' Velocity 37.5 cm/s Mitral E to MV E' Ratio 6.8 Mitral E to LV E' Lateral Ratio 5.2 Mitral E to LV E' Septal Ratio 10.0 TR Peak Velocity 201.7 cm/s TR Peak Gradient 16.3 mmHg TR Mean Velocity 150.7 cm/s TR Mean Gradient 9.9 mmHg TR Velocity Time Integral 39.7 cm Right Atrial Pressure 3.0 mmHg Pulmonary Artery Systolic Pressu 19.3 mmHg PV Peak Velocity 179.0 cm/s RV Acceleration Time 0.1 s RV Ejection Time 0.4 s RV AcT/ET 0.3 FINDINGS Left Ventricle Normal left ventricular size and systolic function, EF 60 %. No regional wall motion abnormalities. Grade I/IV diastolic dysfunction (abnormal relaxation filling pattern), normal to mildly elevated filling pressures. Right Ventricle The right ventricle is normal in size and function. Right Atrium Possibly of normal size Left Atrium Possibly of normal chamber size Mitral Valve Trace mitral valve regurgitation. Aortic Valve No gross abnormalities noted Tricuspid Valve Trace tricuspid valve regurgitation. Pulmonic Valve Pulmonic valve not well visualized. Pericardium Normal pericardium without effusion. Aorta Normal aortic annulus size. IVC Inferior vena cava not visualized. CONCLUSIONS Normal left ventricular size and systolic function, EF 65 %. No regional wall motion abnormalities. Grade I/IV diastolic dysfunction (abnormal relaxation filling pattern), normal to mildly elevated filling pressures. Possibly normal cardiac chamber sizes. Trace tricuspid valve regurgitation. Estimated pulmonary artery peak systolic pressure of 19 mmHg There is no pericardial effusion. There are no intracardiac masses. Compared to the study from 11/11/2019, there LV ejection fraction is improved from 50% to 60%. Dr Shavonne Li MD FACC (Electronically Signed) Final Date: 28 October 2022 18:48 S
== END 2022-10-24 10:31 | disposition home or self-care (01) ==
LOC: RAD 10:34
PROVIDERS: PCP Family Medicine; Visit Provider Internal Medicine Cardiovascular Disease
DX: R06.09 Other forms of dyspnea (principal); I07.1 Rheumatic tricuspid insufficiency
CPT/HCPCS: 36415; 80048; 80076; 82550; 83735; 83880; 84443; 93306

== ENCOUNTER 2022-12-07 06:53 | Outpatient (CLI) | payer MEDICAID, SELFPAY ==
--- NOTE | 2022-12-07 08:00 | NM_ITS ---
WS: [email or web address] NUCLEAR MEDICINE GASTRIC STUDY CLINICAL INFORMATION: Bloating TECHNIQUE: Following oral ingestion of cooked egg mixed with 1.1 mCi technetium 99m sulfur colloid, a nterior images of the stomach were obtained over the course of 90 minutes. Activity curve was perform ed over the course of 90 minutes with linear regression analysis. COMPARISON: None. FINDINGS: Oral ingestion scrambled egg mixture. Delayed stomach emptying suspicious for gastroparesis. T1 half stomach emptying 276 minutes No significant emptying at 60 minutes. Only 24% emptying at 115 minutes. NM/[place] [id number] IMPRESSION: Significantly delayed gastric emptying suspicious for gastroparesis. *Normal median T1 half 90 minutes for solid egg meal (45-110 minutes). Delayed gastric retention is defined as 90% retained at 1 hour, 60% at 2 hour s, 30% at 3 hours, and 10% at 4 hours (normal percent gastric retention is 37-9 0% at 1 hour, 30-60% at 2 hours, and 0-10% at 4 hours).
== END 2022-12-07 06:54 | disposition home or self-care (01) ==
LOC: RAD 06:56
PROVIDERS: PCP Family Medicine; Visit Provider Internal Medicine
DX: R14.0 Abdominal distension (gaseous) (principal)
CPT/HCPCS: 78264; A9541

== ENCOUNTER → 2022-12-13 15:11 | Outpatient (BNVA) | payer MEDICAID, SELFPAY | PROVIDERS: PCP Family Medicine; Visit Provider Family Medicine | DX: E78.2 Mixed hyperlipidemia (principal); E11.40 Type 2 diabetes mellitus with diabetic neuropathy, unspecified; E11.65 Type 2 diabetes mellitus with hyperglycemia; E11.59 Type 2 diabetes mellitus with other circulatory complications; I25.10 Atherosclerotic heart disease of native coronary artery without angina pectoris; I25.5 Ischemic cardiomyopathy; Z87.19 Personal history of other diseases of the digestive system; E11.69 Type 2 diabetes mellitus with other specified complication; E78.5 Hyperlipidemia, unspecified; E11.22 Type 2 diabetes mellitus with diabetic chronic kidney disease; N18.30 Chronic kidney disease, stage 3 unspecified; R14.0 Abdominal distension (gaseous); R63.5 Abnormal weight gain | CPT/HCPCS: 80061; 83036 ==

== ENCOUNTER 2023-01-17 08:58 | Outpatient (CLI) | payer MEDICAID, SELFPAY ==
--- NOTE | 2023-01-17 09:30 | USCV_ITS ---
Irving Powell Age: 52 Gender: M : 1970 Exam Date: 01/17/2023 09:17 Ordering Phys: Radha Redd Technologist: DEACON Exam Location: [facility] [place] Indication: HISTORY: Lower extremity swelling. Lower extremity pain. PROCEDURES: Venous duplex imaging was performed in bilateral lower extremities. The following venous structures were evaluated: common femoral vein, profunda vein, proximal portion of the greater saphenous vein, superficial femoral vein, and the popliteal vein. Serial compression, augmentation maneuvers, and spectral Doppler flow evaluation were performed. An evaluation for venous insufficiency was also completed. FINDINGS: The veins were found to be easily compressible with spontaneous blood flow. Non pulsatile flow pattern. Venous reflux of 1100 ms was noted at the left common femoral vein No significant venous reflux were noted in the superficial veins bilaterally CONCLUSIONS No evidence of DVT in the above-mentioned identifiable veins. Significant reflux of 1100 ms at the left common femoral vein No significant venous reflux in the superficial veins bilaterally Dr Shavonne Li MD [facility] (Electronically Signed) Final Date: 13 February 2023 09:59 S
== END 2023-01-17 08:59 | disposition home or self-care (01) ==
LOC: RAD 08:59
PROVIDERS: PCP Family Medicine; Visit Provider Nurse Practitioner Family
DX: I87.2 Venous insufficiency (chronic) (peripheral) (principal)
CPT/HCPCS: 93970

== ENCOUNTER 2023-02-01 12:26 | Outpatient (CLI) | payer MEDICAID, SELFPAY ==
--- NOTE | 2023-02-01 13:00 | MR_ITS ---
WS: [email or web address] MRI LUMBAR SPINE NONCONTRAST TECHNIQUE: Sagittal T1, T2 and STIR imaging. Axial T1 and T2 imaging. CLINICAL INFORMATION: M54.9 - Dorsalgia, unspecified COMPARISON: None. FINDINGS: Mild lumbar curve. No acute compression. L1-L2: Mild facet arthropathy. Spinal canal and foramen are patent. L2-L3: No significant disc bulging. Mild facet arthropathy. Spinal canal and foramen are patent. L3-L4: Mild annular bulging with slight effacement of ventral thecal sac. LEFT foraminal protrusion w ith contact of the exiting LEFT L3 nerve root. Mild LEFT greater than RIGHT foraminal narrowing. Mild facet arthropathy. L4-L5: Shallow central disc bulging with moderate narrowing of the thecal sac. Prominent epidural fat contributes to stenosis with facet arthropathy. Disc extrusion or calcified synovial cyst extending into the RIGHT subarticular recess and proximal neural foramen. This impinges the proximal exiting RI GHT L4 nerve root. Recommend correlation for RIGHT L4 nerve root symptoms. Moderate to advanced facet arthropathy at this level. Mild LEFT foraminal narrowing. L5-S1: Mild annular bulging. Moderate facet arthropathy. Spinal canal and foramen are patent. Tiny shallow central protrusion at C5-C6. Visualized pelvic bony structures: Normal. Paravertebral soft tissues: Normal. MR/MR lumbar spine wo con* [id number] IMPRESSION: 1. Mild lumbar curve. No acute compression. 2. Calcified disc extrusion or possibly calcified synovial cyst within the RIG HT subarticular recess L4-L5 impinges the proximal exiting RIGHT L4 nerve root. Recommend correlation RIGHT L4 nerve root symptoms. Moderate proximal foramina l narrowing. Material measures approximately 5.9 x 2.3 mm AP by craniocaudal be st seen on the sagittal imaging. 3. Moderate narrowing of the thecal sac L4-L5 due to mild disc bulging in comb ination with facet arthropathy and prominent epidural fat. 4. Mild narrowing of the thecal sac at L3-L4. 5. LEFT foraminal protrusion L3-L4 impinges the exiting LEFT L3 nerve root wit h mild to moderate LEFT foraminal narrowing. 6. Moderate to advanced arthropathy L4-L5. Moderate facet arthropathy L5-S1.
== END 2023-02-01 12:27 ==
LOC: RAD 12:28
PROVIDERS: PCP Family Medicine; Visit Provider Anesthesiology Pain Medicine
DX: M51.16 Intervertebral disc disorders with radiculopathy, lumbar region (principal); G89.29 Other chronic pain; M54.9 Dorsalgia, unspecified
CPT/HCPCS: 72110; 72148; 99204

== ENCOUNTER → 2023-02-06 07:45 | Outpatient (BNVA) | payer MEDICAID, SELFPAY | PROVIDERS: PCP Family Medicine; Visit Provider Surgery | DX: K59.00 Constipation, unspecified (principal); Z80.0 Family history of malignant neoplasm of digestive organs | CPT/HCPCS: 99203; 99214 ==

== ENCOUNTER → 2023-02-15 09:33 | Outpatient (BNVA) | payer MEDICAID, SELFPAY | PROVIDERS: PCP Family Medicine; Visit Provider Anesthesiology Pain Medicine | DX: G89.29 Other chronic pain (principal); M51.16 Intervertebral disc disorders with radiculopathy, lumbar region | CPT/HCPCS: 99214 ==

== ENCOUNTER 2023-03-01 07:20 | Day surgery (SDC) | payer MEDICAID, SELFPAY ==
[2023-02-27 11:02] VITALS: BMI 35.6
[2023-03-01 07:34] VITALS: BP 168/99; PULSE 57; RESP 16; TEMP 36.2; O2SAT 96
[2023-03-01] MEDS: sodium chloride 0.9% 1,000 ML 30 ML IV (07:39)
[2023-03-01 07:40] LABS: Glucose Point of Care 165 mg/dL (70-110)
--- NOTE | 2023-03-01 07:45 | ANES.PREANE2 ---
Pre-Anesthetic Assessment Height/Weight: Height 1.73 m Weight 106.141 kg Temp Pulse Resp BP Pulse Ox O2 Del Method 97.1 F L 57 L 16 168/99 96 Room Air 03/01/23 07:34 03/01/23 07:34 03/01/23 07:34 03/01/23 07:34 03/01/23 07:34 03/01/23 07:34 Preop Diagnosis: Screening Operation Date: 03/01/23 09:00 Proposed Procedures p Colonoscopy 90380,Z80.0, Z12.11(Not Applicable) - Kvng Mcarthur DO Familial anesthetic complications: None Was Beta Lencho taken within 24 hours: N/A (Last took carvedilol Sunday) Was Clonidine taken within 24 hours: N/A Last intake: Intake Last Liquid Date 02/28/23 Last Liquid Time 22:00 Last Solid Date 02/27/23 Last Solid Time 22:00 Social Tobacco (Chew, last time was yesterday morning) and No alcohol Exam alert, oriented x 3, clear to auscultation bilaterally and regular rate & rhythm (Arrhytmia noted) Airway Submandibular: within normal limits (Small mouth opening) Cervical ROM: within normal limits Mallampati: Class IV Dentition: false History/ROS No significant history except as noted and No significant complaints Pulmonary Cough (Chronic), Exertional Dyspnea and Sleep Apnea (CPAP) CV/HEM Arrythmia (Ventricular arrhythmia), Coronary Artery Disease, Congestive Heart Failure, Hypertension, Myocardial Infarction (October 2019 1 stent placed, stent placed 2020, stent placed 2021) and Palpitations CONCLUSIONS ?Normal left ventricular size and systolic function, EF 65 %. No ?regional wall motion abnormalities. Grade I/IV diastolic ?dysfunction (abnormal relaxation filling pattern), normal to ?mildly elevated filling pressures. ?Possibly normal cardiac chamber sizes. ?Trace tricuspid valve regurgitation. ?Estimated pulmonary artery peak systolic pressure of 19 mmHg ?There is no pericardial effusion. ?There are no intracardiac masses. ?Compared to the study from 11/11/2019, there LV ejection fraction ?is improved from 50% to 60%. Chronic Renal Insufficiency (CKD stage 3) Hepatic Cirrhosis GI Gastroesophageal Reflux Disease Metabolic Diabetes Mellitus, Hyperlipidemia and Morbid Obesity Musc/skel Lower Back Pain and Osteoarthritis/DJD Neuropsych Neuropathy Anesthetic Plan ASA status: 4 Anesthesia: Anesthesia Evaluation and General Risk of > 500 ml blood loss (7ml/kg in children): No Medications/Allergies Home Medications Medication Instructions Recorded Confirmed Last Taken Type blood-glucose meter #1 ea 09/09/20 02/19/23 Unknown Rx aspirin 81 mg tablet,delayed 81 mg PO DAILY #30 tabs 01/26/21 03/01/23 02/26/23 Rx release ([place] Low Dose Aspirin) magnesium oxide 400 mg (241.3 mg 400 mg PO DAILY 06/30/21 03/01/23 02/28/23 History magnesium) tablet nitroglycerin 0.4 mg sublingual 0.4 mg sublingual Q5M PRN chest 01/04/22 03/01/23 Unknown Rx tablet pain 30 days #30 tabs insulin glargine 100 unit/mL (3 50 unit (0.5 mL) SUBCUT QAM 90 05/22/22 03/01/23 02/28/23 Rx mL) subcutaneous pen (Lanus days #45 mL Solostar U-100 Insulin) pen needle, diabetic 32 gauge x #100 ea 05/22/22 02/19/23 Unknown Rx 5/16 (Comfort EZ Pen [place]) isosorbide mononitrate 30 mg 30 mg PO DAILY #90 tabs 06/01/22 03/01/23 02/28/23 Rx tablet,extended release 24 hr CPAP and supplies. #1 ea 06/26/22 02/19/23 Unknown Rx hydrocortisone 2.5 % topical 1 applic topical BID #28.35 grams 06/26/22 03/01/23 08/01/22 Rx ointment pen needle, diabetic 32 gauge x #100 ea 08/30/22 02/19/23 Unknown Rx 1/4 (TechLITE Pen Needle) pregabalin 50 mg capsule 50 mg PO BID #60 caps 09/20/22 03/01/23 02/28/23 Rx carvedilol 25 mg tablet 25 mg PO BID 90 days #180 tabs 09/27/22 03/01/23 02/28/23 Rx clopidogrel 75 mg tablet 75 mg PO DAILY 90 days #90 tabs 11/10/22 03/01/23 02/26/23 Rx sacubitril 49 mg-valsartan 51 mg 1 tab PO BID #180 tabs 12/28/22 03/01/23 02/28/23 Rx tablet (Entresto) trazodone 100 mg tablet 100 mg PO DAILY #60 tabs 01/16/23 03/01/23 02/28/23 Rx baclofen 10 mg tablet 10 mg PO BID PRN spasm #60 tabs 02/15/23 03/01/23 02/28/23 Rx sulfamethoxazole 800 1 tab PO BID 7 days #14 tabs 02/19/23 03/01/23 02/28/23 Rx mg-trimethoprim 160 mg tablet (Bactrim DS) atorvastatin 80 mg tablet 80 mg PO DAILY 02/27/23 03/01/23 02/28/23 History dapagliflozin 10 mg tablet 10 mg PO DAILY 02/27/23 03/01/23 02/28/23 History (Farxiga) duloxetine 30 mg capsule,delayed 30 mg PO DAILY 02/27/23 03/01/23 02/28/23 History release fenofibrate micronized 67 mg 67 mg PO DAILY 02/27/23 03/01/23 02/28/23 History capsule pantoprazole 40 mg tablet,delayed 40 mg PO DAILY 02/27/23 03/01/23 02/28/23 History release Allergies Allergy/AdvReac Type Severity Reaction Status Date / Time Latex, Natural Rubber Allergy Severe Rash Verified 03/01/23 07:31 Current Medications Generic Name Dose Route Start Last Admin Trade Name Freq PRN Reason Stop Dose Admin Sodium Chloride 1,000 mls @ 30 mls/hr 03/01/23 07:30 03/01/23 07:39 Sodium Chloride 0.9% IV 03/02/23 07:29 30 mls/hr .Q24H CASSIE Administration PFSH Anesthesia Medical History Atherosclerotic heart disease of [place] coronary artery with other forms of angina pectoris Benign essential hypertension with target blood pressure below 140/90 Chronic back pain Dyslipidemia associated with type 2 diabetes mellitus Erectile dysfunction GERD (gastroesophageal reflux disease) History of pancreatitis one time, noted when diagnosed with diabetes, no recurrance Hypertension Ischemic cardiomyopathy Type 2 diabetes mellitus Surgical History History of PTCA Family History Mother CAD (coronary artery disease) several stents Diabetes Family history of premature coronary artery disease Hypertension Stroke Father No problems noted. Grandfather Dementia Denies family history of Clotting disorder Hyperlipidemia Psychiatric illness Chronic kidney disease (CKD) Suicide Anesthesia complication Bleeding disorder Lung disease Cancer Social History Smoking and tobacco status: smoker, details unknown smokeless tobacco Smokeless tobacco user: chewing tobacco Alcohol intake: former Substance/Drug Use: never Lives independently: Yes Marital status: Single Current occupational status: unemployed Data Anesthesia Cardiac Studies: Echocardiogram 10/24/22 Echocardiogram Ultrasound 11/11/19 Sestamibi Stress Test (Cardiology) 05/31/22 Cardiac Event Monitor 08/31/22 Holter Monitor 09/14/21
--- NOTE | 2023-03-01 08:57 | W.PM.OPSUD ---
Surgery/Procedure H&P Update DATE OF PROCEDURE: March 01, 2023 DATE H&P PERFORMED: 02/06/23 H&P UPDATE INFORMATION: I have reviewed H&P completed within last 30 days, I have examined patient prior to procedure and No changes to prior documentation PREOP DIAGNOSIS: Screening PLANNED PROCEDURE: Operation Date: 03/01/23 09:00 Proposed Procedures p Colonoscopy 66883,Z80.0, Z12.11(Not Applicable) - Kvng Mcarthur, DO
[2023-03-01] MEDS: citric acid-sodium citrate 30 mL UDC PO (09:21)
[2023-03-01 10:10] VITALS: BP 156/98; PULSE 69; RESP 16; TEMP 36.1; O2SAT 96
--- NOTE | 2023-03-01 10:20 | ANE.PACU2 ---
Inpatient post-anesthesia follow up: Airway intact: Yes Vital signs: Temperature 97.0 F Pulse Rate 61 Respiratory Rate 18 Blood Pressure 111/83 Pulse Oximetry 96 Oxygen Delivery Me thod Room Air Oxygen Flow Rate Fraction of Inspir ed Oxygen Hydration adequate: Yes Nausea and vomiting: No Pain level: 1 Mental status: Baseline
[2023-03-01 10:30] VITALS: BP 111/83; PULSE 61; RESP 18; O2SAT 96
== END 2023-03-01 10:53 | disposition home or self-care (01) ==
PROVIDERS: PCP Family Medicine; Visit Provider Surgery
PROC: 0DJD8ZZ Inspection of Lower Intestinal Tract, Via Natural or Artificial Opening Endoscopic (ICD-10-PCS; CPT 45378; principal; 2023-03-01 09:00)
DX: Z12.11 Encounter for screening for malignant neoplasm of colon (principal); Z80.0 Family history of malignant neoplasm of digestive organs; D12.2 Benign neoplasm of ascending colon; D12.4 Benign neoplasm of descending colon; D12.5 Benign neoplasm of sigmoid colon; D12.3 Benign neoplasm of transverse colon; F17.290 Nicotine dependence, other tobacco product, uncomplicated; G47.30 Sleep apnea, unspecified; I25.10 Atherosclerotic heart disease of native coronary artery without angina pectoris; I50.9 Heart failure, unspecified; Z95.5 Presence of coronary angioplasty implant and graft; I13.0 Hypertensive heart and chronic kidney disease with heart failure and stage 1 through stage 4 chronic kidney disease, or unspecified chronic kidney disease; N18.9 Chronic kidney disease, unspecified; E11.22 Type 2 diabetes mellitus with diabetic chronic kidney disease; E78.5 Hyperlipidemia, unspecified; E66.01 Morbid (severe) obesity due to excess calories; Z68.35 Body mass index [BMI] 35.0-35.9, adult; E11.40 Type 2 diabetes mellitus with diabetic neuropathy, unspecified; Z79.82 Long term (current) use of aspirin; Z79.02 Long term (current) use of antithrombotics/antiplatelets; K57.30 Diverticulosis of large intestine without perforation or abscess without bleeding
CPT/HCPCS: 36416; 45385; 82962; 88305; J0330; J1100; J2405; J2704; J7030

== ENCOUNTER → 2023-03-13 08:09 | Outpatient (BNVA) | payer MEDICAID, SELFPAY | PROVIDERS: PCP Family Medicine; Visit Provider Internal Medicine | DX: G89.29 Other chronic pain (principal); M47.816 Spondylosis without myelopathy or radiculopathy, lumbar region; M51.16 Intervertebral disc disorders with radiculopathy, lumbar region; E78.2 Mixed hyperlipidemia; E11.40 Type 2 diabetes mellitus with diabetic neuropathy, unspecified; E11.65 Type 2 diabetes mellitus with hyperglycemia; E11.59 Type 2 diabetes mellitus with other circulatory complications; E11.69 Type 2 diabetes mellitus with other specified complication; I25.10 Atherosclerotic heart disease of native coronary artery without angina pectoris; Z87.19 Personal history of other diseases of the digestive system; E78.5 Hyperlipidemia, unspecified; E11.22 Type 2 diabetes mellitus with diabetic chronic kidney disease; N18.30 Chronic kidney disease, stage 3 unspecified; R14.0 Abdominal distension (gaseous); R63.5 Abnormal weight gain; Z79.4 Long term (current) use of insulin; Z68.36 Body mass index [BMI] 36.0-36.9, adult | CPT/HCPCS: 64493; 64494; 64495; 99214; J3490 ==

== ENCOUNTER → 2023-03-26 13:38 | Outpatient (BNVA) | payer MEDICAID, SELFPAY | PROVIDERS: PCP Family Medicine; Visit Provider Nurse Practitioner Family | DX: E11.59 Type 2 diabetes mellitus with other circulatory complications (principal); I25.10 Atherosclerotic heart disease of native coronary artery without angina pectoris; F17.220 Nicotine dependence, chewing tobacco, uncomplicated; I10 Essential (primary) hypertension; Z79.4 Long term (current) use of insulin | CPT/HCPCS: 99214 ==

== ENCOUNTER → 2023-03-28 16:54 | Outpatient (BNVA) | payer MEDICAID, SELFPAY | PROVIDERS: PCP Family Medicine; Visit Provider Surgery | DX: Z09 Encounter for follow-up examination after completed treatment for conditions other than malignant neoplasm (principal) | CPT/HCPCS: 99212 ==

== ENCOUNTER → 2023-04-03 12:40 | Outpatient (BNVA) | payer MEDICAID, SELFPAY | PROVIDERS: PCP Family Medicine; Visit Provider Anesthesiology Pain Medicine | DX: M47.816 Spondylosis without myelopathy or radiculopathy, lumbar region (principal); G89.29 Other chronic pain; M51.16 Intervertebral disc disorders with radiculopathy, lumbar region | CPT/HCPCS: 64493; 64494; 64495; J3490 ==

== ENCOUNTER → 2023-04-16 09:53 | Outpatient (BNVA) | payer MEDICAID, SELFPAY | PROVIDERS: PCP Family Medicine; Visit Provider Anesthesiology Pain Medicine | DX: G89.29 Other chronic pain; M51.16 Intervertebral disc disorders with radiculopathy, lumbar region | CPT/HCPCS: 99214 ==

== ENCOUNTER → 2023-05-03 14:34 | Outpatient (BNVA) | payer MEDICAID, SELFPAY | PROVIDERS: PCP Family Medicine; Visit Provider Anesthesiology Pain Medicine | DX: M47.816 Spondylosis without myelopathy or radiculopathy, lumbar region (principal); G89.29 Other chronic pain | CPT/HCPCS: 64635; 64636; J1030 ==

== ENCOUNTER → 2023-05-17 12:47 | Outpatient (BNVA) | payer MEDICAID, SELFPAY | PROVIDERS: PCP Family Medicine; Visit Provider Anesthesiology Pain Medicine | DX: M47.816 Spondylosis without myelopathy or radiculopathy, lumbar region (principal); G89.29 Other chronic pain | CPT/HCPCS: 64635; 64636; J1030 ==

== ENCOUNTER → 2023-05-30 12:42 | Outpatient (BNVA) | payer MEDICAID, SELFPAY | PROVIDERS: PCP Family Medicine; Visit Provider Anesthesiology Pain Medicine | DX: G89.29 Other chronic pain; M51.16 Intervertebral disc disorders with radiculopathy, lumbar region; M47.816 Spondylosis without myelopathy or radiculopathy, lumbar region | CPT/HCPCS: 99213 ==

== ENCOUNTER → 2023-06-13 09:25 | Outpatient (BNVA) | payer MEDICAID, SELFPAY | PROVIDERS: PCP Family Medicine; Visit Provider Internal Medicine | DX: E78.2 Mixed hyperlipidemia (principal); E11.40 Type 2 diabetes mellitus with diabetic neuropathy, unspecified; E11.65 Type 2 diabetes mellitus with hyperglycemia; E11.59 Type 2 diabetes mellitus with other circulatory complications; I25.10 Atherosclerotic heart disease of native coronary artery without angina pectoris; I25.5 Ischemic cardiomyopathy; Z87.19 Personal history of other diseases of the digestive system; E11.69 Type 2 diabetes mellitus with other specified complication; E78.5 Hyperlipidemia, unspecified; E11.22 Type 2 diabetes mellitus with diabetic chronic kidney disease; N18.30 Chronic kidney disease, stage 3 unspecified; R14.0 Abdominal distension (gaseous); R63.5 Abnormal weight gain; Z79.4 Long term (current) use of insulin; Z79.84 Long term (current) use of oral hypoglycemic drugs; Z68.38 Body mass index [BMI] 38.0-38.9, adult | CPT/HCPCS: 36415; 80053; 80061; 82044; 83036; 99214 ==

== ENCOUNTER → 2023-09-07 12:13 | Outpatient (BNVA) | payer MEDICAID, SELFPAY | PROVIDERS: PCP Family Medicine; Visit Provider Family Medicine | DX: M75.102 Unspecified rotator cuff tear or rupture of left shoulder, not specified as traumatic (principal) | CPT/HCPCS: 73030 ==

== ENCOUNTER 2023-09-14 15:04 | Outpatient (CLI) | payer MEDICAID, SELFPAY ==
[2023-09-14 16:17] LABS: Estmated Average Glucose 217; Hemoglobin A1C 9.2 % (4.0-6.0)
[2023-09-14 16:23] LABS: Alanine Aminotransferase 36 U/L (0-41); Albumin Level 4.1 g/dL (3.5-5.2); Alkaline Phosphatase 111 U/L (40-130); Aspartate Amino Transferase 27 U/L (0-40); Blood Urea Nitrogen 12 mg/dL (6-20); Calcium 9.5 mg/dL (8.5-10.5); Carbon Dioxide 24 mmol/L (22-29); Chloride 103 mmol/L (98-107); Chol HDL Ratio 4.74 mg/dL (1.0-5.00); Cholesterol 109 mg/dL (0-200); Globulin 2.4 g/dL (1.3-4.6); Glomerular Filtration Rate 39.7 mL/min (90-130); Glucose 315 mg/dL (65-115); HDL Cholesterol 23 mg/dL (60-100); LDL Cholesterol Calculated 21 mg/dL (50-129); LDL HDL Ratio 0.91 RATIO (0.00-3.22); Osmolality Calculated 300 mOsm/kg (285-295); Sodium 139 mmol/L (136-145); Total Bilirubin 0.5 mg/dL (0.15-1.2); Total Protein 6.5 g/dL (6.6-8.7); Triglycerides 327 mg/dL (0-150)
[2023-09-14 16:27] LABS: Anion Gap 16.7 (5-19); Potassium 4.7 mmol/L (3.5-5.1)
== END 2023-09-14 15:05 | disposition home or self-care (01) ==
LOC: LAB 15:05
PROVIDERS: PCP Family Medicine; Visit Provider Internal Medicine
DX: E11.22 Type 2 diabetes mellitus with diabetic chronic kidney disease (principal); N18.30 Chronic kidney disease, stage 3 unspecified
CPT/HCPCS: 36415; 80053; 80061; 83036

== ENCOUNTER → 2023-09-17 10:36 | Outpatient (BNVA) | payer MEDICAID, SELFPAY | PROVIDERS: PCP Family Medicine; Visit Provider Internal Medicine | DX: E11.22 Type 2 diabetes mellitus with diabetic chronic kidney disease (principal); N18.30 Chronic kidney disease, stage 3 unspecified; E78.2 Mixed hyperlipidemia; E11.40 Type 2 diabetes mellitus with diabetic neuropathy, unspecified; E11.65 Type 2 diabetes mellitus with hyperglycemia; E11.59 Type 2 diabetes mellitus with other circulatory complications; I25.10 Atherosclerotic heart disease of native coronary artery without angina pectoris; I25.5 Ischemic cardiomyopathy; Z87.19 Personal history of other diseases of the digestive system; E11.69 Type 2 diabetes mellitus with other specified complication; E78.5 Hyperlipidemia, unspecified; R14.0 Abdominal distension (gaseous); R63.5 Abnormal weight gain; Z79.4 Long term (current) use of insulin; Z68.38 Body mass index [BMI] 38.0-38.9, adult | CPT/HCPCS: 82044; 99214 ==

== ENCOUNTER 2023-10-04 11:48 | Outpatient (CLI) | payer MEDICAID, SELFPAY ==
--- NOTE | 2023-10-04 12:30 | MR_ITS ---
WS: [email or web address] MRI LEFT SHOULDER NONCONTRAST TECHNIQUE: Coronal T1, coronal PD, sagittal T2 fat sat, axial T2*, axial PD imaging. Remaining sequen beau not obtained due to patient pain. CLINICAL INFORMATION: rotator cuff tear. 3/5 strength COMPARISON: None. FINDINGS: Moderate degenerative arthritis AC joint. Slight subacromial spurring. Tendinopathy distal supraspina tus and infraspinatus. Tiny undersurface tear distal infraspinatus insertion. Small longitudinal intr asubstance tear involving the subacromial supraspinatus. Normal teres minor. Subscapularis tendon is intact. Normal biceps labral anchor. Moderate degenerative fraying of the glenoid labrum. Normal biceps tend on in the bicipital groove. Intra-articular biceps tendon appears intact. Normal bone marrow signal i n the humerus and glenoid. IMPRESSION: 1. Moderate degenerative arthritis AC joint with mild edema. Mild subacromial spurring with slight i mpingement on the distal supraspinatus. 2. Tendinopathy distal supraspinatus and infraspinatus. 3. Small undersurface insertional tear distal infraspinatus. Additional intrasubstance tear involvin g the subacromial supraspinatus. 4. Biceps tendon intact within the bicipital groove. 5. No other acute findings.
== END 2023-10-04 11:49 | disposition home or self-care (01) ==
LOC: RAD 11:48
PROVIDERS: PCP Family Medicine; Visit Provider Family Medicine
DX: M75.102 Unspecified rotator cuff tear or rupture of left shoulder, not specified as traumatic (principal); M19.012 Primary osteoarthritis, left shoulder; M67.814 Other specified disorders of tendon, left shoulder
CPT/HCPCS: 73221

== ENCOUNTER → 2023-10-08 11:30 | Outpatient (BNVA) | payer MEDICAID, SELFPAY | PROVIDERS: PCP Family Medicine; Referring Provider Family Medicine; Visit Provider Nurse Practitioner | DX: M75.102 Unspecified rotator cuff tear or rupture of left shoulder, not specified as traumatic (principal); E11.40 Type 2 diabetes mellitus with diabetic neuropathy, unspecified; E11.65 Type 2 diabetes mellitus with hyperglycemia; M67.912 Unspecified disorder of synovium and tendon, left shoulder; M75.42 Impingement syndrome of left shoulder; M19.012 Primary osteoarthritis, left shoulder | CPT/HCPCS: 36415; 80053; 81003; 83036; 85025; 99204 ==

== ENCOUNTER → 2023-10-10 09:30 | Outpatient (BNVA) | payer MEDICAID, SELFPAY | PROVIDERS: PCP Family Medicine; Visit Provider Nurse Practitioner Family | DX: I10 Essential (primary) hypertension (principal); I25.118 Atherosclerotic heart disease of native coronary artery with other forms of angina pectoris; F17.220 Nicotine dependence, chewing tobacco, uncomplicated | CPT/HCPCS: 99214 ==

== ENCOUNTER → 2023-10-16 07:27 | Outpatient (BNVA) | payer MEDICAID, SELFPAY | PROVIDERS: PCP Family Medicine; Visit Provider Internal Medicine | DX: E78.2 Mixed hyperlipidemia (principal); E11.40 Type 2 diabetes mellitus with diabetic neuropathy, unspecified; E11.65 Type 2 diabetes mellitus with hyperglycemia; E11.59 Type 2 diabetes mellitus with other circulatory complications; I25.10 Atherosclerotic heart disease of native coronary artery without angina pectoris; I25.5 Ischemic cardiomyopathy; Z87.19 Personal history of other diseases of the digestive system; E11.69 Type 2 diabetes mellitus with other specified complication; E78.5 Hyperlipidemia, unspecified; E11.22 Type 2 diabetes mellitus with diabetic chronic kidney disease; N18.30 Chronic kidney disease, stage 3 unspecified; R14.0 Abdominal distension (gaseous); R63.5 Abnormal weight gain; Z79.4 Long term (current) use of insulin; Z68.38 Body mass index [BMI] 38.0-38.9, adult | CPT/HCPCS: 99214 ==

== ENCOUNTER 2023-10-29 05:28 | Day surgery (SDC) | payer MEDICAID, SELFPAY ==
[2023-10-29] VITALS (13 sets, daily range): BP systolic 79–165; BP diastolic 54–97; PULSE 47–71; RESP 16–22; TEMP 36.1; O2SAT 91–98; BMI 38.0
[2023-10-29 06:23] LABS: Glucose Point of Care 246 mg/dL (70-110)
[2023-10-29] MEDS: sodium chloride 0.9% 1,000 ML 30 ML IV (06:25)
[2023-10-29] MEDS: acetaminophen 1,000 MG/100 ML PIGGYBACK 400 MG IV (06:26)
[2023-10-29] MEDS: CELEcoxib 200 mg Capsule 400 MG PO (06:27)
[2023-10-29] MEDS: gabapentin 300 mg Capsule PO (06:27)
[2023-10-29] MEDS: midazolam 1 mg/mL INJ 2 mL 2 MG IVP (06:46)
--- NOTE | 2023-10-29 07:00 | W.PM.OPSUD ---
Surgery/Procedure H&P Update DATE OF PROCEDURE: October 29, 2023 DATE H&P PERFORMED: 10/08/23 H&P UPDATE INFORMATION: I have reviewed H&P completed within last 30 days, I have examined patient prior to procedure, No changes to prior documentation and H&P is in [facility] EMR on date indicated PLANNED PROCEDURE: Operation Date: 10/29/23 07:00 Proposed Procedures p Acromioplasty(Left) - Idalia Cuellar MD s Distal Clavicle Resection/ excision(Left) - MD scar Bennett Debridement Upper Extremity(Left) - Idalia Cuellar MD Related Problem List Diagnoses (1) Tear of left supraspinatus tendon: (2) Acromioclavicular joint arthritis: Qualifiers: Laterality: left Qualified Code(s): M19.012 - Primary osteoarthritis, left shoulder (3) Impingement syndrome of left shoulder:
--- NOTE | 2023-10-29 07:06 | ANES.PREANE2 ---
Pre-Anesthetic Assessment Height/Weight: Height 1.73 m Weight 113.398 kg Temp Pulse Resp BP Pulse Ox O2 Del Method 97 F L 71 18 165/97 96 Room Air 10/29/23 06:04 10/29/23 06:04 10/29/23 06:04 10/29/23 06:04 10/29/23 06:04 10/29/23 06:08 Operation Date: 10/29/23 07:00 Proposed Procedures p Acromioplasty(Left) - Idalia Cuellar MD s Distal Clavicle Resection/ excision(Left) - Idalia Cuellar MD s Debridement Upper Extremity(Left) - Idalia Cuellar MD Familial anesthetic complications: None Was Beta Lencho taken within 24 hours: Yes Was Clonidine taken within 24 hours: N/A Last intake: Intake Last Liquid Date 10/28/23 Last Liquid Time 23:00 Last Solid Date 10/28/23 Last Solid Time 23:00 Social Tobacco (chews) and No alcohol Exam alert, oriented x 3, clear to auscultation bilaterally and regular rate & rhythm Airway Mallampati: Class IV Dentition: chipped Comments: Comments: large neck and tongue Pulmonary Sleep Apnea CV/HEM Stable Angina, Arrythmia (PVCs and nonsustained Vtach (rare) on holter), Coronary Artery Disease, Hypertension and Myocardial Infarction stents > 1 year ago, holing plavix, EF 46% Chronic Renal Insufficiency GI Gastroesophageal Reflux Disease Metabolic Diabetes Mellitus, Hyperlipidemia and Morbid Obesity Anesthetic Plan ASA status: 4 Anesthesia: General and Regional (specify below) Other: patieint choose interscalene block Risk of > 500 ml blood loss (7ml/kg in children): No Medications/Allergies Home Medications Medication Instructions Recorded Confirmed Last Taken Type blood-glucose meter #1 ea 09/09/20 10/16/23 Unknown Rx aspirin 81 mg tablet,delayed 81 mg PO DAILY #30 tabs 01/26/21 10/26/23 10/24/23 Rx release (Winston Low Dose Aspirin) magnesium oxide 400 mg (241.3 mg 400 mg PO DAILY 06/30/21 10/26/23 10/28/23 History magnesium) tablet nitroglycerin 0.4 mg sublingual 0.4 mg sublingual Q5M PRN chest 01/04/22 10/26/23 Unknown Rx tablet pain 30 days #30 tabs pen needle, diabetic 32 gauge x #100 ea 05/22/22 10/16/23 Unknown Rx 5/16 (Comfort EZ Pen Sharon) CPAP and supplies. #1 ea 06/26/22 10/16/23 Unknown Rx hydrocortisone 2.5 % topical 1 applic topical BID #28.35 grams 06/26/22 10/26/23 08/01/22 Rx ointment pen needle, diabetic 32 gauge x #100 ea 08/30/22 10/16/23 Unknown Rx 1/4 (TechLITE Pen Needle) carvedilol 25 mg tablet 25 mg PO BID 90 days #180 tabs 09/27/22 10/26/23 10/29/23 Rx clopidogrel 75 mg tablet 75 mg PO DAILY 90 days #90 tabs 11/10/22 10/26/23 10/24/23 Rx sacubitril 49 mg-valsartan 51 mg 1 tab PO BID #180 tabs 12/28/22 10/26/23 10/28/23 Rx tablet (Entresto) isosorbide mononitrate 30 mg 30 mg PO BID #180 tabs 03/26/23 10/26/23 10/28/23 Rx tablet,extended release 24 hr trazodone 150 mg tablet 150 mg PO DAILY #90 tabs 06/25/23 10/26/23 10/28/23 Rx pregabalin 50 mg capsule 50 mg PO BID #60 caps 07/24/23 10/26/23 10/28/23 Rx cyclobenzaprine 10 mg tablet 10 mg PO TID PRN muscle spasm #60 08/31/23 10/26/23 10/25/23 Rx tabs fluconazole 150 mg tablet 150 mg PO DAILY PRN tinea barbare 08/31/23 10/26/23 10/26/23 Rx 14 days #14 tabs meloxicam 15 mg tablet 15 mg PO DAILY #60 tabs 08/31/23 10/26/23 10/28/23 Rx topiramate 25 mg tablet 25 mg PO DAILY #90 tabs 09/05/23 10/29/23 10/28/23 Rx sumatriptan succinate 25 mg tablet See Rx Instructions PO .COMPLEX 09/21/23 10/29/23 10/28/23 Rx #30 tabs blood-glucose meter,continuous #1 ea 09/25/23 10/16/23 Unknown Rx (Dexcom G7 Marketing Database Consultant) blood-glucose sensor (Dexcom G7 #9 ea 10/16/23 10/16/23 Unknown Rx Sensor device) fluticasone propionate 50 2 spray intranasal DAILY #16 grams 10/16/23 10/26/23 10/28/23 Rx mcg/actuation nasal spray,suspension (Flonase Allergy Relief) insulin aspart U-100 100 unit/mL 15 unit (0.15 mL) SUBCUT TID #15 mL 10/16/23 10/26/23 10/28/23 Rx (3 mL) subcutaneous pen (Novolog FlexPen U-100 Insulin aspart) insulin glargine 100 unit/mL (3 See Rx Instructions .Route .COMPLEX 10/17/23 10/26/23 10/28/23 History mL) subcutaneous pen (Lantus Solostar U-100 Insulin) atorvastatin 80 mg tablet 80 mg PO DAILY 10/26/23 10/26/23 10/28/23 History dapagliflozin propanediol 10 mg 10 mg PO DAILY 10/26/23 10/26/23 10/28/23 History tablet (Farxiga) duloxetine 30 mg capsule,delayed 30 mg PO DAILY 10/26/23 10/26/23 10/28/23 History release fenofibrate micronized 67 mg 67 mg PO DAILY 10/26/23 10/26/23 10/28/23 History capsule metoclopramide HCl 10 mg tablet 10 mg PO QID PRN Nausea And 10/26/23 10/29/23 10/28/23 History Vomiting pantoprazole 40 mg tablet,delayed 40 mg PO BID 10/26/23 10/26/23 10/28/23 History release Allergies Allergy/AdvReac Type Severity Reaction Status Date / Time Latex, Natural Rubber Allergy Severe Rash Verified 10/26/23 13:56 Current Medications Generic Name Dose Route Start Last Admin Trade Name Freq PRN Reason Stop Dose Admin Sodium Chloride 1,000 mls @ 30 mls/hr 10/29/23 06:00 10/29/23 06:25 Sodium Chloride 0.9% IV 10/30/23 05:59 30 mls/hr .Q24H CASSIE Administration Midazolam HCl 2 mg 10/29/23 05:50 10/29/23 06:46 Midazolam 1 Mg/Ml Inj 2 Ml IVP 2 mg Q5M PRN Administration Preop Anxiety PFSH Anesthesia Medical History Impingement syndrome of left shoulder Acromioclavicular joint arthritis Tendinopathy of left rotator cuff Chronic back pain Ischemic cardiomyopathy Atherosclerotic heart disease of [place] coronary artery with other forms of angina pectoris Dyslipidemia associated with type 2 diabetes mellitus Benign essential hypertension with target blood pressure below 140/90 History of pancreatitis one time, noted when diagnosed with diabetes, no recurrance Erectile dysfunction GERD (gastroesophageal reflux disease) Hypertension Type 2 diabetes mellitus Surgical History History of PTCA Family History Mother CAD (coronary artery disease) several stents Diabetes Family history of premature coronary artery disease Hypertension Stroke Father No problems noted. Grandfather Dementia Denies family history of Clotting disorder Hyperlipidemia Psychiatric illness Chronic kidney disease (CKD) Suicide Anesthesia complication Bleeding disorder Lung disease Cancer Social History Smoking and tobacco/nicotine status: tobacco/nicotine user, details unknown smokeless tobacco Smokeless tobacco user: chewing tobacco Alcohol intake: former Substance/Drug Use: never Lives independently: Yes Marital status: Single Current occupational status: unemployed Data Anesthesia Cardiac Studies: Echocardiogram 10/24/22 Echocardiogram Ultrasound 11/11/19 Sestamibi Stress Test (Cardiology) 05/31/22 Cardiac Event Monitor 08/31/22 Holter Monitor 09/14/21
--- NOTE | 2023-10-29 07:08 | ANES.PROC ---
Anesthesia Procedures Procedure/Date: 10/29/23 Nerve Block ^: Nerve Block 1: Main Anesthesia: general anesthesia Time Out Performed: Yes Consent: requested by attending/covering physician, from patient, from other, risks and benefits reviewed and patient agrees to proceed Nerve block location: interscalene (L) Anesthesia monitors applied: pulse oximetry, EKG, BP cuff and oxygen Nerve block position: semi sitting Anesthetic Used: ropivicaine 0.5% (20 ml) Ultrasound used to: recognize landmarks, visualize and ID brachial plexus, in supraclavicular region and visualize and ID interscalene groove Nerve Stimulator Used?: No Interscalene/Femoral BLK: 2 stimuplex 22 g needle used for position and inplane approach, visualize local anesthetic spread and no vascular puncture identified Injection: neg aspiration of heme Patient Tolerated Procedure: well and no complications Complications: none
[2023-10-29] MEDS: ceFAZolin 2,000 MG in sodium chloride 0.9% (plus) 50 ML 100 MG IV (07:11)
--- NOTE | 2023-10-29 08:57 | PM.OP ---
Operative Report Date of procedure: October 29, 2023 Pre-op diagnosis: Left shoulder impingement with osteoarthritis of the acromioclavicular joint and tendinopathy left rotator cuff with possible rotator cuff tear Post-op diagnosis: Left shoulder impingement with osteoarthritis of the acromioclavicular joint and tendinopathy left rotator cuff with possible rotator cuff tear Post-op findings: Very significant impingement subacromial with severe degenerative osteoarthritis of the acromioclavicular joint and no complete rotator cuff tear Procedure done: Left open acromioplasty with distal clavicle resection and bursectomy with debridement of rotator cuff Implants: None Specimens removed/disposition: None Surgeon: Idalia Cuellar MD Health And Safety Consultant: Rama Luong NP, who services were necessary for positioning, retraction, intraoperative positioning of the arm, and closure. Anesthesia: General (Intubated, ASA 4) Estimated blood loss (mL): 10 IV fluids (mL): 1,000 Urine output (mL): 0 (No Bae) Complications: None Condition: stable Disposition: PACU (Then to same-day surgery for discharge to home) Brief History: This 53-year-old gentleman presented to clinic on October 08, 2023 with complaints of left shoulder pain. At the time, he noted his pain was 9 of 10 with an injury date in July 2023. He did not feel a specific pop, however, his pain worsened over his baseline. He does note that he picked up a piano at the time of his increased discomfort. The patient had an MRI of his left shoulder prior to his initial appointment with us. This demonstrated moderate degenerative osteoarthritis at the acromioclavicular joint with subacromial osteophytes impinging upon the distal supraspinatus. There was tendinopathy in the distal supraspinatus and infraspinatus with a small insertional tear on the undersurface of the distal infraspinatus as well as an intrasubstance tear involving the subacromial supraspinatus. At that time, treatment options were discussed with the patient. He wished to proceed with surgical intervention, and this was discussed in detail with him. Consents were signed and questions were answered. Procedure: The patient was brought to the operating theater and underwent general, intubated, ASA 4, anesthesia. The patient was placed in a beachchair position and subsequently the left upper extremity was prepped and draped in the usual fashion utilizing DuraPrep. The arm was draped free. A surgical pause was performed prior to commencement of the surgical procedure. At the time of the surgical pause, we confirmed the site and side of surgery as well as administration of appropriate preoperative antibiotics, Ancef 2 g. MRI was also reviewed at that time. Following the surgical pause, an incision was made at approximately the level of the acromioclavicular joint extending across the anterolateral corner of the acromion and distally as necessary. Care was taken to avoid injury to the axillary nerve by limiting the distal extent of the incision. Dissection continued through skin and soft tissues using a scalpel. Hemostasis was obtained using electrocautery. Soft tissues were elevated off the acromion. An acromioplasty was then accomplished using a combination of a saw and a power rasp. With this, we were able to remove compression caused by the acromion. The rotator cuff was then evaluated to look for tears. A bursectomy was accomplished, and the rotator cuff was evaluated and palpated. There was noted to be significant inflammation in the rotator cuff as well as swelling, but there was no obvious tear. There were a couple areas of thinning, but these were not complete tears requiring repair. The shoulder was placed through further range of motion to assure there was no further evidence of rotator cuff tear. The acromioclavicular joint was exposed. A saw was then used to resect the distal clavicle without difficulty. The undersurface of the clavicle was palpated and was slightly further debrided. A power rasp was used to further smooth the area. When this was felt to be adequately resected, the wound was irrigated. Attention was then directed to closure. The wound was irrigated and closure was accomplished with 0 Vicryl in the capsular tissues overlying the acromioclavicular joint area as well as over the acromion and down into the deltoid muscle. 3-0 Monocryl was used to close the subcutaneous tissues followed by 4-0 Monocryl subcuticular closure. This was followed by Dermabond and OpSite. The patient was placed in a sling and was returned to the recovery room in satisfactory condition. The patient will be discharged to home to follow-up in the office as scheduled. There were no complications and no specimens. Related Problem List Diagnoses (1) Impingement syndrome of left shoulder: (2) Acromioclavicular joint arthritis: (3) Tendinopathy of left rotator cuff:
--- NOTE | 2023-10-29 09:26 | PC.NURSE ---
0925 - BP consistently low with low heart rate - pt positioned flat - Daisy Glover CRNA notified and at pts side
--- NOTE | 2023-10-29 10:45 | ANE.PACU2 ---
Inpatient post-anesthesia follow up: Airway intact: Yes Vital signs: Temperature 97 F Pulse Rate 66 Respiratory Rate 18 Blood Pressure 118/72 Pulse Oximetry 95 Oxygen Delivery Me thod Room Air Oxygen Flow Rate 3 Fraction of Inspir ed Oxygen Hydration adequate: Yes Nausea and vomiting: No Pain level: 1 Mental status: Baseline
[2023-10-29 11:21] LABS: Glucose Point of Care 223 mg/dL (70-110)
== END 2023-10-29 10:45 | disposition home or self-care (01) ==
PROVIDERS: PCP Family Medicine; Visit Provider Specialist
PROC: (CPT 23130; principal; 2023-10-29 07:00)
PROC: (CPT 23120; 2023-10-29 07:00)
PROC: (CPT 23120; 2023-10-29 07:00)
DX: M25.812 Other specified joint disorders, left shoulder (principal); M19.012 Primary osteoarthritis, left shoulder; M75.42 Impingement syndrome of left shoulder; F17.220 Nicotine dependence, chewing tobacco, uncomplicated; G47.30 Sleep apnea, unspecified; I25.10 Atherosclerotic heart disease of native coronary artery without angina pectoris; I10 Essential (primary) hypertension; I25.2 Old myocardial infarction; Z95.5 Presence of coronary angioplasty implant and graft; K21.9 Gastro-esophageal reflux disease without esophagitis; E11.9 Type 2 diabetes mellitus without complications; E78.5 Hyperlipidemia, unspecified; E66.01 Morbid (severe) obesity due to excess calories; Z68.38 Body mass index [BMI] 38.0-38.9, adult; Z79.4 Long term (current) use of insulin
CPT/HCPCS: 23120; 23130; 36416; 82962; J0131; J0330; J0690; J1100; J2250; J2371; J2405; J2704; J2795; J3010; J3490; J7030; P9045

== ENCOUNTER 2023-11-01 11:42 | Outpatient (CLI) | payer MEDICAID, SELFPAY ==
--- NOTE | 2023-11-01 15:03 | P.DIET_ITS ---
Reason for Visit: 60503 E78.2 Person Interviewed: Patient and Family (Irving's Patricia was with him and a very active participant in the interview.) Medical History, Labs and Background: Patricia and Irving mentioned issues with his heart, pancreatitis, gastroparesis as well as the DM2 diagnosis. Height: 5 ft 8 in Weight: 250 lb BMI: 38.1 kg/m2 GI Symptoms: Constipation (Sometimes he has issues with constipation, sometimes just has BM's every couple of days.) Food Allergies and Sensitivities: Irving could not think of any foods that upset his stomach or that he was allergic too. 24 Hour Recall: Breakfast Time: someimes at 8am, sometimes noon drink water or soda or milk Snack Time: Lunch Time: Snack Time: Dinner Time: 5pm meat + veggie Snack Time: Eating Out: They don't eat out often. Soda vs Milk vs Water: Irving drinks a 2 liter bottle of Diet Mountain Dew/per day, and has maybe 1 cup coffee and 2 glasses water/day Additional Comments: Irving had shoulder surgery on Sunday and his arm was in a sling. Patricia apologized for speaking up, but said she also does the shopping and cooking and is interested in eating better for Irving as well as herself. Both asked questions, but Patricia was more engaged. Recommendations: Assessment: If Patricia can make some changes, Irving might join in - not sure how willing he is since he was cooperative, but quiet. When I found out he drank 1 liter of diet Mountain Dew/day I understood why he rarely ate during the day and then was super hungry at night. Nutrition Dx: Food and nutrition knowledge deficit r/t DM2 aeb habits and pat terns that are unhealthy. Intervention: We talked through the Diabetic MyPlate and the idea of managing carbs and including lean proteins and healthy fats with every meal and snack. I also gave handouts on CHO counting and 5 days of meal plans to give them a template for planning meals. Then we discussed eating regularly so as to manage blood glucose better and stave off ravenous hunger at the end of the day. Lastly I asked about the soda and could he cut back because of the caffeine that would dull his appetite and the empty nutrition from drinking so much soda. I also printed off and discussed briefly nutrition and gastroparesis. Monitoring and evaluation: I am not sure Irving is on board, but his seemed to track with all we talked about and seemed motivated to have balanced meals and alternatives to diet soda. My office phone and email were given for F/U questions. Coding Level of Care Code Nutrition/Individ/Init 60 min Time Spent (min) 60
== END 2023-11-01 11:43 | disposition home or self-care (01) ==
LOC: DIET 11:43
PROVIDERS: PCP Family Medicine; Visit Provider Internal Medicine
DX: Z71.3 Dietary counseling and surveillance (principal); E11.40 Type 2 diabetes mellitus with diabetic neuropathy, unspecified; E11.65 Type 2 diabetes mellitus with hyperglycemia; E11.59 Type 2 diabetes mellitus with other circulatory complications; I25.10 Atherosclerotic heart disease of native coronary artery without angina pectoris; E78.2 Mixed hyperlipidemia; Z68.38 Body mass index [BMI] 38.0-38.9, adult
CPT/HCPCS: 97802

== ENCOUNTER → 2023-11-12 07:34 | Outpatient (BNVA) | payer MEDICAID, SELFPAY | PROVIDERS: PCP Family Medicine; Visit Provider Specialist | DX: Z98.890 Other specified postprocedural states (principal); M75.42 Impingement syndrome of left shoulder; M19.012 Primary osteoarthritis, left shoulder; M67.912 Unspecified disorder of synovium and tendon, left shoulder | CPT/HCPCS: 99024 ==

== ENCOUNTER → 2023-12-17 10:18 | Outpatient (BNVA) | payer MEDICAID, SELFPAY | PROVIDERS: PCP Family Medicine; Visit Provider Anesthesiology Pain Medicine | DX: M51.16 Intervertebral disc disorders with radiculopathy, lumbar region (principal); G89.29 Other chronic pain; M47.816 Spondylosis without myelopathy or radiculopathy, lumbar region | CPT/HCPCS: 99213; 99214 ==

== ENCOUNTER → 2023-12-18 14:31 | Outpatient (BNVA) | payer MEDICAID, SELFPAY | PROVIDERS: PCP Family Medicine; Visit Provider Student in an Organized Health Care Education/Training Program | DX: Z98.890 Other specified postprocedural states (principal) | CPT/HCPCS: 99213 ==

== ENCOUNTER 2024-01-15 12:34 | Outpatient (CLI) | payer MEDICAID, SELFPAY ==
[2024-01-15 13:43] LABS: Alanine Aminotransferase 24 U/L (0-41); Albumin Level 4.1 g/dL (3.5-5.2); Alkaline Phosphatase 96 U/L (40-130); Anion Gap 13.4 (5-19); Aspartate Amino Transferase 17 U/L (0-40); Blood Urea Nitrogen 13 mg/dL (6-20); Calcium 9.1 mg/dL (8.5-10.5); Carbon Dioxide 26 mmol/L (22-29); Chloride 107 mmol/L (98-107); Chol HDL Ratio 3.41 mg/dL (1.0-5.00); Cholesterol 109 mg/dL (0-200); Globulin 2.3 g/dL (1.3-4.6); Glomerular Filtration Rate 35.1 mL/min (90-130); Glucose 163 mg/dL (65-115); HDL Cholesterol 32 mg/dL (60-100); LDL Cholesterol Calculated 46 mg/dL (50-129); LDL HDL Ratio 1.44 RATIO (0.00-3.22); Osmolality Calculated 298 mOsm/kg (285-295); Potassium 4.4 mmol/L (3.5-5.1); Sodium 142 mmol/L (136-145); Total Bilirubin 0.5 mg/dL (0.15-1.2); Total Protein 6.4 g/dL (6.6-8.7); Triglycerides 157 mg/dL (0-150)
[2024-01-15 13:45] LABS: Estmated Average Glucose 220; Hemoglobin A1C 9.3 % (4.0-6.0)
[2024-01-15 14:58] LABS: Creatinine Urine, Random 119 mg/dL (39-259); Microalbum Creatinine Ratio Ur 8 mg/dL (0-20); Microalbumin Random Urine 1 ug/dL (0-20)
== END 2024-01-15 12:35 | disposition home or self-care (01) ==
LOC: LAB 12:35
PROVIDERS: PCP Family Medicine; Visit Provider Internal Medicine
DX: E78.2 Mixed hyperlipidemia (principal); E11.40 Type 2 diabetes mellitus with diabetic neuropathy, unspecified; E11.65 Type 2 diabetes mellitus with hyperglycemia
CPT/HCPCS: 36415; 80053; 80061; 82044; 83036

== ENCOUNTER → 2024-01-16 07:56 | Outpatient (BNVA) | payer MEDICAID, SELFPAY | PROVIDERS: PCP Family Medicine; Visit Provider Internal Medicine | DX: E78.2 Mixed hyperlipidemia (principal); E11.40 Type 2 diabetes mellitus with diabetic neuropathy, unspecified; E11.65 Type 2 diabetes mellitus with hyperglycemia; E11.59 Type 2 diabetes mellitus with other circulatory complications; I25.10 Atherosclerotic heart disease of native coronary artery without angina pectoris; I25.5 Ischemic cardiomyopathy; Z87.19 Personal history of other diseases of the digestive system; E11.69 Type 2 diabetes mellitus with other specified complication; E78.5 Hyperlipidemia, unspecified; E11.22 Type 2 diabetes mellitus with diabetic chronic kidney disease; N18.30 Chronic kidney disease, stage 3 unspecified; R14.0 Abdominal distension (gaseous); R63.5 Abnormal weight gain; Z79.4 Long term (current) use of insulin; Z68.37 Body mass index [BMI] 37.0-37.9, adult | CPT/HCPCS: 99214 ==

== ENCOUNTER → 2024-03-13 14:35 | Outpatient (BNVA) | payer MEDICAID, SELFPAY | PROVIDERS: PCP Family Medicine; Visit Provider Physician Assistant | DX: Z98.890 Other specified postprocedural states (principal) | CPT/HCPCS: 99213 ==

== ENCOUNTER → 2024-04-04 15:21 | Outpatient (BNVA) | payer MEDICAID, SELFPAY | PROVIDERS: PCP Family Medicine; Visit Provider Family Medicine | DX: N18.32 Chronic kidney disease, stage 3b | CPT/HCPCS: 80053; 83036 ==

== ENCOUNTER 2024-04-14 15:30 | Outpatient (CLI) | payer MEDICAID, SELFPAY ==
[2024-04-14 16:14] LABS: Estmated Average Glucose 223; Hemoglobin A1C 9.4 % (4.0-6.0)
[2024-04-14 16:53] LABS: Alanine Aminotransferase 22 U/L (0-41); Albumin Level 4.1 g/dL (3.5-5.2); Alkaline Phosphatase 107 U/L (40-130); Anion Gap 16.1 (5-19); Aspartate Amino Transferase 13 U/L (0-40); Blood Urea Nitrogen 16 mg/dL (6-20); Calcium 9.1 mg/dL (8.5-10.5); Carbon Dioxide 23 mmol/L (22-29); Chloride 103 mmol/L (98-107); Chol HDL Ratio 4.36 mg/dL (1.0-5.00); Cholesterol 109 mg/dL (0-200); Globulin 2.5 g/dL (1.3-4.6); Glucose 443 mg/dL (65-115); HDL Cholesterol 25 mg/dL (60-100); Osmolality Calculated 306 mOsm/kg (285-295); Potassium 4.1 mmol/L (3.5-5.1); Sodium 138 mmol/L (136-145); Total Bilirubin 0.6 mg/dL (0.15-1.2); Total Protein 6.6 g/dL (6.6-8.7); Triglycerides 404 mg/dL (0-150)
[2024-04-14 17:37] LABS: LDL Cholesterol Direct 37 mg/dL (0-100)
== END 2024-04-14 15:31 | disposition home or self-care (01) ==
LOC: LAB 15:31
PROVIDERS: PCP Family Medicine; Visit Provider Internal Medicine
DX: E11.40 Type 2 diabetes mellitus with diabetic neuropathy, unspecified (principal); E11.65 Type 2 diabetes mellitus with hyperglycemia; E78.2 Mixed hyperlipidemia
CPT/HCPCS: 36415; 80053; 80061; 83036; 83721

== ENCOUNTER 2024-04-15 08:58 | Outpatient (CLI) | payer MEDICAID, SELFPAY ==
[2024-04-15 10:32] LABS: Creatinine Urine, Random 75 mg/dL (39-259); Microalbum Creatinine Ratio Ur 13 mg/dL (0-20); Microalbumin Random Urine 1 ug/dL (0-20)
== END 2024-04-15 08:59 | disposition home or self-care (01) ==
LOC: LAB 08:59
PROVIDERS: PCP Family Medicine; Visit Provider Internal Medicine
DX: E11.40 Type 2 diabetes mellitus with diabetic neuropathy, unspecified (principal); E11.65 Type 2 diabetes mellitus with hyperglycemia; E78.2 Mixed hyperlipidemia
CPT/HCPCS: 82044

== ENCOUNTER → 2024-04-17 07:48 | Outpatient (BNVA) | payer MEDICAID, SELFPAY | PROVIDERS: PCP Family Medicine; Visit Provider Internal Medicine | DX: E11.22 Type 2 diabetes mellitus with diabetic chronic kidney disease (principal); N18.32 Chronic kidney disease, stage 3b; E78.2 Mixed hyperlipidemia; Z79.4 Long term (current) use of insulin | CPT/HCPCS: 99214 ==

== ENCOUNTER 2024-05-10 00:43 | Emergency (ER) | payer MEDICAID, SELFPAY ==
[2024-05-10 00:48] VITALS: BP 167/82; PULSE 72; RESP 18; TEMP 36.4; O2SAT 96
--- NOTE | 2024-05-10 01:10 | CTR_ITS ---
PROCEDURE INFORMATION: Exam: CT Abdomen And Pelvis Without Contrast Exam date and time: 05/10/2024 1:33 AM Age: 53 years old Clinical indication: Abdominal pain; Prior surgery; Surgery date: 6+ months; Surgery type: Coronary stents; Patient HX: C/O left flank/groin pain. ; Additional info: L flank pain TECHNIQUE: Imaging protocol: Computed tomography of the abdomen and pelvis without contrast. Radiation optimization: All CT scans at this facility use at least one of these dose optimization techniques: automated exposure control; mA and/or kV adjustment per patient size (includes targeted exams where dose is matched to clinical indication); or iterative reconstruction. COMPARISON: CR XR KUB [id number] 12/28/2021 4:19 PM RADIATION DOSE METRICS: Total DLP (mGy-cm): 1215.83 FINDINGS: Liver: Hepatic steatosis. Gallbladder and biliary ducts: Cholelithiasis without evidence of acute cholecystitis. Pancreas: Normal. No ductal dilation. Spleen: Normal. No splenomegaly. Adrenal glands: Normal. No mass. Kidneys and ureters: 4 mm incompletely obstructive left ureteral stone at the UVJ (series 3, image 211). No significant hydroureteronephrosis. Bilateral nonspecific perinephric fat stranding, [id number]. Stomach and bowel: Colonic diverticulosis without diverticulitis. Appendix: No evidence of appendicitis. Intraperitoneal space: Unremarkable. No free air. No significant fluid collection. Vasculature: Moderate atherosclerotic changes of the aortoiliac tree. Lymph nodes: Unremarkable. No enlarged lymph nodes. Urinary bladder: Unremarkable as visualized. Reproductive: Unremarkable as visualized. Bones/joints: Moderate multilevel spondylosis. Multiple bone islands in the bilateral hips. Soft tissues: Unremarkable. CT/CT kidney stone [id number] IMPRESSION: 1. 4 mm incompletely obstructive left ureteral stone at the UVJ with increased left-sided perinephric fat stranding. 2. No significant hydroureteronephrosis.
--- NOTE | 2024-05-10 01:10 | ED_ITS ---
HPI - Abdominal Pain 2 General: Chief Complaint: Abdominal Pain Stated Complaint: Rt Side Pain\Testicle Pain Time Seen by Provider: 05/10/24 00:45 Source: patient Mode of arrival: ambulatory Limitations: no limitations History of Present Illness: 53-year-old male states he has been havi ng left flank pain for last 2 days with worsening last night states pain radiates into his left testicles pain severe in nature rates a 9 out of 10 he had no vomiting diarrhea denies any dysuria denies any worse improving factors denies any fever Associated Symptoms: Denies chills, diarrhea, dysuria, fever(s), nausea and vomiting Related Data Home Medications Medication Instructions Recorded Confirmed magnesium oxide 400 mg (241.3 mg 400 mg PO DAILY 06/30/21 05/02/24 magnesium) tablet Previous Rx's Medication Instructions Recorded blood-glucose meter #1 ea 09/09/20 aspirin 81 mg tablet,delayed 81 mg PO DAILY #30 tabs 01/26/21 release (Winston Low Dose Aspirin) nitroglycerin 0.4 mg sublingual 0.4 mg sublingual Q5M PRN chest 01/04/22 tablet pain 30 days #30 tabs pen needle, diabetic 32 gauge x #100 ea 05/22/22/ (Comfort EZ Pen [place]) CPAP and supplies. #1 ea 06/26/22 sumatriptan succinate 25 mg tablet See Rx Instructions PO .COMPLEX 09/21/23 #30 tabs blood-glucose meter,continuous #1 ea 09/25/23 (Dexcom G7 Search Planner) furosemide 40 mg tablet (Lasix) 40 mg PO QAM #5 tabs 11/05/23 carvedilol 25 mg tablet See Rx Instructions .Route 11/07/23 .COMPLEX #180 tabs trazodone 150 mg tablet 150 mg PO DAILY #90 tabs 11/08/23 clopidogrel 75 mg tablet 75 mg PO DAILY 90 days #90 tabs 11/19/23 pen needle, diabetic 32 gauge x #200 ea 11/26/23/ (TechLITE Pen Needle) fluticasone propionate 50 2 spray intranasal DAILY #16 grams 12/03/23 mcg/actuation nasal spray,suspension (Flonase Allergy Relief) blood-glucose sensor (Dexcom G7 #9 ea 12/28/23 Sensor device) sacubitril 49 mg-valsartan 51 mg 1 tab PO BID #180 tabs 01/10/24 tablet (Entresto) topiramate 25 mg tablet 25 mg PO DAILY #90 tabs 01/22/24 insulin aspart U-100 100 unit/mL 15 unit (0.15 mL) SUBCUT TID #40.5 01/30/24 (3 mL) subcutaneous pen (Novolog mL FlexPen U-100 Insulin aspart) insulin glargine 100 unit/mL (3 See Rx Instructions .Route 03/19/24 mL) subcutaneous pen (Lantus .COMPLEX #72 mL Solostar U-100 Insulin) pregabalin 50 mg capsule 50 mg PO BID #60 caps 03/21/24 promethazine-DM 6.25 mg-15 mg/5 mL 5 ml PO Q4H PRN cough #118 mL 03/31/24 oral syrup fluconazole 150 mg tablet 150 mg PO DAILY PRN tinea barbare 04/04/24 14 days #14 tabs pregabalin 25 mg capsule (Lyrica) 25 mg PO BID #30 caps 04/04/24 blood sugar diagnostic (ReliOn #100 ea 04/07/24 Prime Test Strips) isosorbide mononitrate 30 mg See Rx Instructions .Route 04/23/24 tablet,extended release 24 hr .COMPLEX #180 tabs atorvastatin 80 mg tablet See Rx Instructions .Route 04/24/24 .COMPLEX #90 tabs cyclobenzaprine 10 mg tablet See Rx Instructions .Route 04/24/24 .COMPLEX #60 tabs duloxetine 30 mg capsule,delayed 30 mg PO BID #180 caps 04/24/24 release fenofibrate micronized 67 mg See Rx Instructions .Route 04/24/24 capsule .COMPLEX #30 caps pantoprazole 40 mg tablet,delayed See Rx Instructions .Route 04/24/24 release .COMPLEX #60 tabs pen needle, diabetic 32 gauge x #100 ea 04/24/24 (Techlite Plus Pen Needle) amoxicillin 500 mg tablet 500 mg PO BID #14 tabs 05/02/24 escitalopram oxalate 10 mg tablet 10 mg PO DAILY #60 tabs 05/06/24 (Lexapro) hydrocodone 5 mg-acetaminophen 325 1 tab PO Q6H PRN pain #14 tabs 05/10/24 mg tablet ondansetron 4 mg disintegrating 4 mg PO Q6H PRN nausea and 05/10/24 tablet vomiting #14 tabs Allergies Allergy/AdvReac Type Severity Reaction Status Date / Time Latex, Natural Rubber Allergy Severe Rash Verified 05/10/24 00:52 Review of Systems 2 Const: Denies: fever(s), chills, body aches or change in appetite ENMT: Denies: throat pain or dental pain Card: Denies: chest pain Resp: Denies: dyspnea GI: Reports: abdominal pain; Denies: nausea, vomiting or diarrhea : Reports: flank pain; Denies: dysuria Musc: Denies: neck pain or back pain Skin/Breast: Denies: rash Neuro: Denies: headache(s) PFSH ED 2 PFSH: Medical History CKD stage 3a, GFR 45-59 ml/min Moderate major depression Impingement syndrome of left shoulder Acromioclavicular joint arthritis Tendinopathy of left rotator cuff Chronic back pain Ischemic cardiomyopathy Atherosclerotic heart disease of [place] coronary artery with other forms of angina pectoris Dyslipidemia associated with type 2 diabetes mellitus Benign essential hypertension with target blood pressure below 140/90 History of pancreatitis one time, noted when diagnosed with diabetes, no recurrance Erectile dysfunction GERD (gastroesophageal reflux disease) Hypertension Type 2 diabetes mellitus Surgical History History of PTCA Family History Mother CAD (coronary artery disease) several stents Diabetes Family history of premature coronary artery disease Hypertension Stroke Father No problems noted. Grandfather Dementia Denies family history of Clotting disorder Hyperlipidemia Psychiatric illness Chronic kidney disease (CKD) Suicide Anesthesia complication Bleeding disorder Lung disease Cancer Social History Smoking and tobacco/nicotine status: never used tobacco/nicotine Alcohol intake: former Substance/Drug Use: never Lives independently: Yes Marital status: Single Current occupational status: unemployed Physical Exam 2 Const: COMMON NORMALS: no acute distress, patient oriented x3 and healthy appearing HENMT: COMMON NORMALS: normocephalic and atraumatic HEAD & SCALP: n ormocephalic and atraumatic Neck/C-Spine: COMMON NORMALS: full ROM and supple Chest: COMMONS NORMALS: normal inspection of the chest Resp: COMMON NORMALS: normal respiratory effort Cardio: COMMON NORMALS: regular rate, regular rhythm and No murmurs present (Cardio) RATE: regular rate RHYTHM: regular rhythm GI: COMMON NORMALS: Normal to inspection, nondistended, normoactive bowel sounds present, Soft to palpation, non-tender and no masses PALPATION: Yes Soft to palpation : SCROTUM: Yes testes descended bilaterally and No Scrotal tenderness present TESTES: Yes testicular lie normal and No testicular tenderness Extremity: COMMON NORMALS: normal to inspection and full ROM Neuro: COMMON NORMALS: patient oriented x3, moves all extremities and no focal motor deficits Psych: COMMON NORMALS: mental status grossly normal, Normal thought process present and cooperative THOUGHT PROCESS: Normal thought process present Skin: COMMON NORMALS: no rashes or lesions noted and no wounds GENERAL SKIN EXAM: no rashes or lesions noted Course 2 Vital Signs: Vital signs: Vital Signs Temperature 97.6 F 05/10/24 00:48 Pulse Rate 75 05/10/24 04:01 Respiratory Rate 18 05/10/24 04:01 Blood Pressure 122/73 05/10/24 04:01 Pulse Oximetry 96 05/10/24 04:01 Oxygen Delivery Me thod Room Air 05/10/24 04:01 MDM - Abdominal Pain Medical Decision Making Patient presents here with flank pain is found to have a kidney stone no signs of urinary tract infections pain is much improved here he is stable for discharge she is follow-up with urology return if worsening. Medical Records I reviewed the patient's medical records. Lab Data I reviewed the patient's lab results. 05/10/24 01:04 05/10/24 01:04 Labs/Radiology: Radiology Impressions Abdomen/Pelvis CT 05/10/24 01:10 IMPRESSION: 1. 4 mm incompletely obstructive left ureteral stone at the UVJ with increased left-sided perinephric fat stranding. 2. No significant hydroureteronephrosis. Laboratory Results WBC 7.19 10^3/uL (3.29-11.43) 05/10/24 01:04 RBC 4.66 10^6/uL (3.85-5.65) 05/10/24 01:04 Hgb 13.60 g/dL (11.27-16.99) 05/10/24 01:04 Hct 40.3 % (37-53) 05/10/24 01:04 MCV 86.5 fl (82-101) 05/10/24 01:04 MCH 29.2 pg (27-33) 05/10/24 01:04 MCHC 33.7 g/dL (30-55) 05/10/24 01:04 RDW 13.8 % (12.1-15.1) 05/10/24 01:04 Plt Count 141 10^3/cmm (157-399) L 05/10/24 01:04 MPV 11.9 fL (7.4-10.4) H 05/10/24 01:04 Neut % (Auto) 54.7 % 05/10/24 01:04 Lymph % (Auto) 30.7 % 05/10/24 01:04 [place] % (Auto) 9.0 % 05/10/24 01:04 Eos % (Auto) 4.6 % 05/10/24 01:04 Baso % (Auto) 0.7 % 05/10/24 01:04 Neut # (Auto) 3.93 10^3/uL (1.8-7.7) 05/10/24 01:04 Lymph # (Auto) 2.2 10^3/uL (0.8-4.8) 05/10/24 01:04 [place] # (Auto) 0.7 10^3/uL (0.2-0.9) 05/10/24 01:04 Eos # (Auto) 0.3 10^3/uL (0.0-0.8) 05/10/24 01:04 Baso # (Auto) 0.1 10^3/uL (0.0-0.1) 05/10/24 01:04 Nucleated RBC % (auto) 0 % 05/10/24 01:04 Nucleated RBCs # 0.0 /100WBC 05/10/24 01:04 Sodium 140 mmol/L (136-145) 05/10/24 01:04 Potassium 3.8 mmol/L (3.5-5.1) 05/10/24 01:04 Chloride 106 mmol/L (98-107) 05/10/24 01:04 Carbon Dioxide 25 mmol/L (22-29) 05/10/24 01:04 Anion Gap 12.8 (5-19) 05/10/24 01:04 BUN 19 mg/dL (6-20) 05/10/24 01:04 Creatinine 1.7 mg/dL (0.7-1.2) H 05/10/24 01:04 GFR Calculation 42.4 mL/min (90-130) L 05/10/24 01:04 Glucose 126 mg/dL (65-115) H 05/10/24 01:04 Calculated Osmolality 294 mOsm/kg (285-295) 05/10/24 01:04 Calcium 9.0 mg/dL (8.5-10.5) 05/10/24 01:04 Total Bilirubin 0.5 mg/dL (0.15-1.2) 05/10/24 01:04 AST 17 U/L (0-40) 05/10/24 01:04 ALT 25 U/L (0-41) 05/10/24 01:04 Alkaline Phosphatase 84 U/L (40-130) 05/10/24 01:04 Total Protein 6.3 g/dL (6.6-8.7) L 05/10/24 01:04 Albumin 4.1 g/dL (3.5-5.2) 05/10/24 01:04 Globulin 2.2 g/dL (1.3-4.6) 05/10/24 01:04 Lipase 27 U/L (13-60) 05/10/24 01:04 Urine Color Dark yellow (Yellow) A 05/10/24 04:20 Urine Appearance Cloudy (CLEAR) A 05/10/24 04:20 Urine pH 5.5 (5-7) 05/10/24 04:20 Ur Specific [place] 1.030 (1.005-1.030) 05/10/24 04:20 Urine Protein 1+ (Negative) A 05/10/24 04:20 Urine Glucose (UA) 1+ (Normal) H 05/10/24 04:20 Urine Ketones Trace (Negative) 05/10/24 04:20 Urine Blood 3+ (Negative) A 05/10/24 04:20 Urine Nitrate Negative (Negative) 05/10/24 04:20 Urine Bilirubin Negative (Negative) 05/10/24 04:20 Urine Urobilinogen 1.0 mg/dL (Negative) 05/10/24 04:20 Ur Leukocyte Esterase Trace (Negative) A 05/10/24 04:20 Urine RBC 51-100 /hpf (0-2) H 05/10/24 04:20 Urine WBC 0-5 /hpf (0-5) 05/10/24 04:20 Ur Squamous Epith Cells 0-5 /hpf (0-5) 05/10/24 04:20 Calcium Oxalate Crystal 5-10 /hpf H 05/10/24 04:20 Amorphous Sediment Not Reportable 05/10/24 04:20 Urine Bacteria None seen /hpf (NONE) 05/10/24 04:20 Hyaline Casts 5.36 /lpf 05/10/24 04:20 Urine Mucus 1+ /hpf 05/10/24 04:20 All radiology interpretation(s) finalized by discharge Discharge Plan Discharge Patient Disposition: Home Clinical Impression: Kidney stone Condition: Stable Prescriptions: New hydrocodone-acetaminophen 5-325 mg tablet 1 tab PO Q6H PRN (Reason: pain) Qty: 14 0RF ondansetron 4 mg tablet,disintegrating 4 mg PO Q6H PRN (Reason: nausea and vomiting) Qty: 14 0RF No Action (DME) blood-glucose meter Kit See Rx Instructions .ROUTE .MEDSUPPLY Qty: 1 0RF Rx Instructions: As directed nitroglycerin 0.4 mg tablet, sublingual 0.4 mg sublingual Q5M PRN (Reason: chest pain) 30 Days Qty: 30 3RF Rx Instructions: until response; do not exceed 3 doses per episode amoxicillin 500 mg tablet 500 mg PO BID Qty: 14 0RF (DME) pen needle, diabetic [Comfort EZ Pen [place]] 32 gauge x 5/16 needle See Rx Instructions .Route Qty: 100 0RF Rx Instructions: once daily (DME) CPAP and supplies. See Rx Instructions .Route .MEDSUPPLY Qty: 1 5RF Rx Instructions: Please issue CPAP, masks, tubing, filters, reservoirs, and all necessary supplies. furosemide [Lasix] 40 mg tablet 40 mg PO QAM Qty: 5 0RF pregabalin [Lyrica] 25 mg capsule 25 mg PO BID Qty: 30 0RF fluconazole 150 mg tablet 150 mg PO DAILY PRN (Reason: tinea barbare) 14 Days Qty: 14 0RF promethazine-DM 6.25-15 mg/5 mL syrup 5 ml PO Q4H PRN (Reason: cough) Qty: 118 0RF Rx Instructions: Do not exceed more than 30ml/24hour period (6 doses) sumatriptan succinate 25 mg tablet See Rx Instructions PO .COMPLEX Qty: 30 0RF Rx Instructions: take 1 tab at onset of headache; if no relief may repeat 1 tab after at least 2 hrs; max = 4 tabs/24 hr PO (DME) Dexcom G7 Search Planner Misc See Rx Instructions .Route Qty: 1 0RF Rx Instructions: As directed carvedilol 25 mg tablet See Rx Instructions .ROUTE .COMPLEX Qty: 180 3RF Dose Instruction: TAKE 1 TABLET BY MOUTH TWICE DAILY *take with meal/food* Rx Instructions: TAKE 1 TABLET BY MOUTH TWICE DAILY *take with meal/food* trazodone 150 mg tablet 150 mg PO DAILY Qty: 90 2RF clopidogrel 75 mg tablet 75 mg PO DAILY 90 Days Qty: 90 3RF Hold Instructions: Resume on 03/03/23. (DME) pen needle, diabetic [TechLITE Pen Needle] 32 gauge x 1/4 needle See Rx Instructions .ROUTE .COMPLEX Qty: 200 0RF Dose Instruction: USE EVERY DAY Rx Instructions: USE EVERY DAY fluticasone propionate [Flonase Allergy Relief] 50 mcg/actuation spray,suspension 2 spray intranasal DAILY Qty: 16 0RF Rx Instructions: administer into each nostril (DME) Dexcom G7 Sensor Device See Rx Instructions .Route Qty: 9 1RF Rx Instructions: As directed Entresto 49-51 mg tablet 1 tab PO BID Qty: 180 3RF topiramate 25 mg tablet 25 mg PO DAILY Qty: 90 1RF insulin aspart U-100 [Novolog FlexPen U-100 Insulin] 100 unit/mL (3 mL) insulin pen 15 unit SUBCUT TID Qty: 40.5 1RF insulin glargine [Lantus Solostar U-100 Insulin] 100 unit/mL (3 mL) insulin pen See Rx Instructions .ROUTE .COMPLEX Qty: 72 0RF Dose Instruction: inject 80 units SUBCUTANEOUSLY DAILY Rx Instructions: inject 80 units SUBCUTANEOUSLY DAILY pregabalin 50 mg capsule 50 mg PO BID Qty: 60 2RF (DME) ReliOn Prime Test Strips Strip See Rx Instructions .Route Qty: 100 6RF Rx Instructions: three times a day isosorbide mononitrate 30 mg tablet extended release 24 hr See Rx Instructions .ROUTE .COMPLEX Qty: 180 3RF Dose Instruction: TAKE 1 TABLET BY MOUTH TWICE DAILY Rx Instructions: TAKE 1 TABLET BY MOUTH TWICE DAILY pantoprazole 40 mg tablet,delayed release (DR/EC) See Rx Instructions .ROUTE .COMPLEX Qty: 60 0RF Dose Instruction: TAKE 1 TABLET BY MOUTH TWICE DAILY Rx Instructions: TAKE 1 TABLET BY MOUTH TWICE DAILY atorvastatin 80 mg tablet See Rx Instructions .ROUTE .COMPLEX Qty: 90 0RF Dose Instruction: TAKE 1 TABLET BY MOUTH EVERY DAY Rx Instructions: TAKE 1 TABLET BY MOUTH EVERY DAY duloxetine 30 mg capsule,delayed release(DR/EC) 30 mg PO BID Qty: 180 0RF cyclobenzaprine 10 mg tablet See Rx Instructions .ROUTE .COMPLEX Qty: 60 0RF Dose Instruction: TAKE 1 TABLET BY MOUTH THREE TIMES DAILY NEEDED FOR MUSCLE SPASMS Rx Instructions: TAKE 1 TABLET BY MOUTH THREE TIMES DAILY NEEDED FOR MUSCLE SPASMS fenofibrate micronized 67 mg capsule See Rx Instructions .ROUTE .COMPLEX Qty: 30 0RF Dose Instruction: take 1 capsule BY MOUTH EVERY DAY Rx Instructions: take 1 capsule BY MOUTH EVERY DAY (DME) pen needle, diabetic [Techlite Plus Pen Needle] 32 gauge x 5/32 needle See Rx Instructions .Route Qty: 100 3RF Rx Instructions: As directed escitalopram oxalate [Lexapro] 10 mg tablet 10 mg PO DAILY Qty: 60 0RF aspirin [Winston Low Dose Aspirin] 81 mg tablet,delayed release (DR/EC) 81 mg PO DAILY Qty: 30 5RF magnesium oxide 400 mg (241.3 mg magnesium) tablet 400 mg PO DAILY Discharge Orders: Discharge ED (Routine); Ordered 05/10/24 Ordered By: Cl Farfan Referrals: Eduin Lozano MD [Primary Care Provider] - Discharge Diet: Advance as tolerated Discharge Activity: Resume usual activity Patient Instructions: Kidney Stones (ED), Opioid Safety Coding Level of Care Code ED Photographic Equipment Technician for Hazel Mancia
[2024-05-10 01:15] LABS: Basophils # 0.1 10^3/uL (0.0-0.1); Basophils % 0.7 %; Eosinophils # 0.3 10^3/uL (0.0-0.8); Eosinophils % 4.6 %; Hematocrit 40.3 % (37-53); Lymphocytes # 2.2 10^3/uL (0.8-4.8); Lymphocytes % 30.7 %; Mean Corpuscular HGB Conc 33.7 g/dL (30-55); Mean Corpuscular Hemoglobin 29.2 pg (27-33); Mean Corpuscular Volume 86.5 fl (82-101); Mean Platelet Volume 11.9 fL (7.4-10.4); Monocytes # 0.7 10^3/uL (0.2-0.9); Neutrophils # 3.93 10^3/uL (1.8-7.7); Neutrophils % 54.7 %; Nucleated Red Blood Cells % 0 %; Platelet Count 141 10^3/cmm (157-399); Red Blood Count 4.66 10^6/uL (3.85-5.65); Red Cell Distribution Width 13.8 % (12.1-15.1); White Blood Count 7.19 10^3/uL (3.29-11.43)
[2024-05-10] MEDS: sodium chloride 0.9% 1,000 ML 999 ML IV (01:18)
[2024-05-10] MEDS: ketorolac 30 mg/mL INJ IVP (01:19)
[2024-05-10] MEDS: ondansetron 2 mg/ML SDV 2 mL 4 MG IVP (01:20)
[2024-05-10 01:22] VITALS: BP 179/95; PULSE 75; RESP 18; O2SAT 92; O2SAT 97
[2024-05-10] MEDS: HYDROmorphone 1 mg/mL INJ 1 mL IVP (01:22)
[2024-05-10 01:33] LABS: Alanine Aminotransferase 25 U/L (0-41); Albumin Level 4.1 g/dL (3.5-5.2); Alkaline Phosphatase 84 U/L (40-130); Anion Gap 12.8 (5-19); Aspartate Amino Transferase 17 U/L (0-40); Blood Urea Nitrogen 19 mg/dL (6-20); Carbon Dioxide 25 mmol/L (22-29); Chloride 106 mmol/L (98-107); Globulin 2.2 g/dL (1.3-4.6); Glomerular Filtration Rate 42.4 mL/min (90-130); Glucose 126 mg/dL (65-115); Lipase 27 U/L (13-60); Osmolality Calculated 294 mOsm/kg (285-295); Potassium 3.8 mmol/L (3.5-5.1); Sodium 140 mmol/L (136-145); Total Bilirubin 0.5 mg/dL (0.15-1.2); Total Protein 6.3 g/dL (6.6-8.7)
[2024-05-10 03:16] VITALS: BP 176/97; PULSE 78; O2SAT 96
[2024-05-10] MEDS: sodium chloride 0.9% 500 ML 999 ML IV (03:57)
[2024-05-10 03:58] VITALS: BP 169/96; PULSE 75; RESP 18; O2SAT 95; O2SAT 97
[2024-05-10] MEDS: morphine 4 mg/mL SDV 1 mL IVP (03:58)
[2024-05-10 04:01] VITALS: BP 122/73; PULSE 75; RESP 18; O2SAT 96
[2024-05-10 04:29] LABS: Bilirubin Urine Negative (Negative); Blood Urine 3+ (Negative); Glucose Urine UA 1+ (Normal); Ketones Urine Trace (Negative); Leukocyte Esterase Urine Trace (Negative); Nitrate Urine Negative (Negative); Protein Urine 1+ (Negative); Urine Appearance Cloudy (CLEAR); Urine Color Dark Yellow (Yellow); pH Urine 5.5 (5-7)
[2024-05-10 04:34] LABS: Add Urine Microscopic? YES; Bacteria Urine None Seen /hpf; Hyaline Casts Urine 5.36 /lpf; RBC Urine 51-100 /hpf (0-2); Squamous Epithelial Cell Urine 0-5 /hpf (0-5); Universal Test for UA Present (0); WBC Urine 0-5 /hpf (0-5)
[2024-05-10 04:35] LABS: Add Urine Culture? Yes
[2024-05-10 04:40] LABS: Mucus Urine 1+ /hpf
[2024-05-10 04:52] VITALS: BP 160/83; PULSE 65; RESP 18; O2SAT 96
--- NOTE | 2024-05-10 05:44 | PC.NURSE ---
Pt sent home with Hydrocodone 5/[address] Farfan's orders.
--- NOTE | 2024-05-13 07:59 | DCPLANNER ---
faxed urology packet to [facility]
== END 2024-05-10 04:53 | disposition home or self-care (01) ==
PROVIDERS: Emergency Provider Emergency Medicine; PCP Family Medicine
DX: N20.0 Calculus of kidney (principal); Z79.02 Long term (current) use of antithrombotics/antiplatelets; Z79.82 Long term (current) use of aspirin; Z79.4 Long term (current) use of insulin; E11.22 Type 2 diabetes mellitus with diabetic chronic kidney disease; I12.9 Hypertensive chronic kidney disease with stage 1 through stage 4 chronic kidney disease, or unspecified chronic kidney disease; N18.31 Chronic kidney disease, stage 3a; I25.5 Ischemic cardiomyopathy; I25.10 Atherosclerotic heart disease of native coronary artery without angina pectoris; E78.5 Hyperlipidemia, unspecified
CPT/HCPCS: 74176; 80053; 81001; 83690; 85025; 87086; 96361; 96374; 96375; 99285; J1170; J1885; J2270; J2405; J7030; J7040

== ENCOUNTER → 2024-05-27 14:42 | Outpatient (BNVA) | payer MEDICAID, SELFPAY | PROVIDERS: PCP Family Medicine; Visit Provider Internal Medicine Cardiovascular Disease | DX: R07.9 Chest pain, unspecified (principal); I49.8 Other specified cardiac arrhythmias; R94.31 Abnormal electrocardiogram [ECG] [EKG] | CPT/HCPCS: 93005; 99214 ==

== ENCOUNTER → 2024-06-10 15:05 | Outpatient (BNVA) | payer MEDICAID, SELFPAY | PROVIDERS: PCP Family Medicine; Visit Provider Physician Assistant | DX: M75.42 Impingement syndrome of left shoulder (principal); M67.912 Unspecified disorder of synovium and tendon, left shoulder; M19.012 Primary osteoarthritis, left shoulder; Z98.890 Other specified postprocedural states | CPT/HCPCS: 73030; 99213 ==

== ENCOUNTER 2024-06-19 06:38 | Outpatient (CLI) | payer MEDICAID, SELFPAY ==
--- NOTE | 2024-06-19 | ECG_ITS ---
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 Interpretive Statements PROCEDURE: The baseline electrocardiogram showed [normal sinus rhythm with nonspecific T wave changes. 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 At the baseline, the patient's blood pressure was 154/86 mm Hg with a heart rate of 92. The patient exercised for 6 minutes and 31 seconds on a standard Gonzalez protocol. Patient attained a maximum heart rate of 144 beats per minute(86% of the maximum predicted heart rate) with a blood pressure at the peak exercise of 195/66 mm Hg. The EKG at the peak exercise revealed nonspecific EKG changes and occasional PVCs. Patient did [not have any chest pain . Sestamibi was injected 1 minute prior to the peak exercise During the recovery phase, there were no new changes. Blood pressure at the end of the recovery phase was 168/75 mm Hg with a heart rate of 101 per minute. CONCLUSION: 1. No significant EKG changes with the [treadmill exercise 2. No exercise-induced chest pain. Occasional PVCs are noted with the peak exercise . 3. Fair exercise tolerance, attained a maximum of 7.0 METs 4. Sestamibi/Sestamibi perfusion results pending; see separate report. Lung unchanged pre/post procedure; Intraprocedure shortess of breath; Symptoms resoled by discharge Electronically Signed On 06-19-2024 18:41:07 CDT by Shavonne Li M.D. [email or web address]
[2024-06-19 06:44] VITALS: BMI 42.5
--- NOTE | 2024-06-19 06:52 | NMCV_ITS ---
NM gracy perf SPECT r/s* [id number] Irving Powell Age: 53 Gender: M : 1970 Exam Date: 06/19/2024 06:52 Ordering Phys: Shavonne Li MD ([email or web address]) Technologist: KAMRAN Farmer Exam Location: [facility] Indications: cp STRESS TEST [facility] IMAGE PROTOCOL Rest/Stress 1 Exercise Day Radiopharmaceutical Dose (mCi) Administration Site Administered by Rest: Tc-99m 9.2 IV KAMRAN Farmer Stress:Tc-99m 29.6 IV KAMRAN Krause Rest: 06/19/2024 60 Discovery 630 Stress: 06/19/2024 15 Discovery 630 Radiopharmaceutical was injected at 86 % maximum heart rate. SPECT RESULTS Technical Quality: Good Raw Data Analysis: Normal Image Corrections: No attenuation or motion correction applied Summed Stress Score: 2 Summed Rest Score: 6 Summed Difference Score: 0 PERFUSION FINDINGS Slightly decreased tracer uptake was noted in the mid inferolateral and apical lateral region. No significant reversibility was noted in this area. FUNCTIONAL RESULTS (calculated via Gated SPECT) Stress Image LV EF (%): 55 Stress EDV (mL):106 TID: 0.79 Stress ESV (mL):48 FUNCTIONAL FINDINGS: Segmental wall motion analysis revealing no gross wall motion abnormalities IMPRESSIONS 1. Myocardial perfusion imaging revealing small to moderate area of slightly decreased persistent tracer uptake involving the inferolateral and apical lateral region, suggesting myocardial scarring versus attenuation artifact in the distribution of the circumflex artery 2. Normal LV ejection fraction of 55%. 3. LV wall motion analysis revealing no gross wall motion abnormalities. 4. Mildly dilated LV cavity with an end-systolic volume of 48 mL No significant coronary ischemia, based on the above findings. There is improvement of ischemia and LV ejection fraction, compared to the study from 05/31/[id number] Dr Shavonne Li MD FAC (Electronically Signed) Final Date: 19 June 2024 09:35 S
[2024-06-19 08:24] VITALS: BP 168/75; PULSE 90
== END 2024-06-19 06:39 | disposition home or self-care (01) ==
LOC: CDL 06:39
PROVIDERS: PCP Family Medicine; Visit Provider Internal Medicine Cardiovascular Disease
DX: Z98.61 Coronary angioplasty status (principal); R06.02 Shortness of breath
CPT/HCPCS: 36415; 78452; 93017; A9500

== ENCOUNTER 2024-07-21 08:18 | Outpatient (CLI) | payer MEDICAID, SELFPAY ==
--- NOTE | 2024-07-21 09:00 | MM_ITS ---
WS: [id number] DIAGNOSTIC BILATERAL DIGITAL BREAST TOMOSYNTHESIS MAMMOGRAPHY WITH CAD HISTORY: R breast mass, 53-year-old male. COMPARISON: None available. TECHNIQUE: Bilateral craniocaudad, mediolateral oblique, and mediolateral views are submitted with to mosynthesis and SM. Spot compression RIGHT MLO and CC. Computer aided detection utilized. Breast composition: The breasts are almost entirely fatty. Lobulated high density mass in the RIGHT breast is below and central to the nipple. This mass may ext end to involve the subcutaneous soft tissue. Mass measures 2.3 x 2.4 x 2.2 cm. No calcification. No a bnormality in the LEFT breast. RIGHT breast ultrasound, limited. Solid hypoechoic mass in the RIGHT breast at 3:00 corresponds to the palpable abnormality. Mass measu res 2.4 x 2.4 x 1.1 cm and extends into the subcutaneous soft tissue. No axillary adenopathy. MM/MM diag BI tomosynthesis [id number] IMPRESSION: BI-RADS: 4 - Suspicious Finding - Biopsy Should Be Considered. FOLLOW UP: Biopsy Recommended Ultrasound-guided biopsy recommended of the RIGHT breast mass. Notified Eduin Lozano MD at 07/21/2024 9:36 AM.
--- NOTE | 2024-07-21 09:30 | US_ITS ---
WS: [id number] DIAGNOSTIC BILATERAL DIGITAL BREAST TOMOSYNTHESIS MAMMOGRAPHY WITH CAD HISTORY: R breast mass, 53-year-old male. COMPARISON: None available. TECHNIQUE: Bilateral craniocaudad, mediolateral oblique, and mediolateral views are submitted with to mosynthesis and SM. Spot compression RIGHT MLO and CC. Computer aided detection utilized. Breast composition: The breasts are almost entirely fatty. Lobulated high density mass in the RIGHT breast is below and central to the nipple. This mass may ext end to involve the subcutaneous soft tissue. Mass measures 2.3 x 2.4 x 2.2 cm. No calcification. No a bnormality in the LEFT breast. RIGHT breast ultrasound, limited. Solid hypoechoic mass in the RIGHT breast at 3:00 corresponds to the palpable abnormality. Mass measu res 2.4 x 2.4 x 1.1 cm and extends into the subcutaneous soft tissue. No axillary adenopathy. US/US breast RT limited* [id number] IMPRESSION: BI-RADS: 4 - Suspicious Finding - Biopsy Should Be Considered. FOLLOW UP: Biopsy Recommended Ultrasound-guided biopsy recommended of the RIGHT breast mass. Notified Eduin Lozano MD at 07/21/2024 9:36 AM.
== END 2024-07-21 08:19 | disposition home or self-care (01) ==
LOC: RAD 08:19
PROVIDERS: PCP Family Medicine; Visit Provider Family Medicine
DX: N63.14 Unspecified lump in the right breast, lower inner quadrant (principal); R92.313 Mammographic fatty tissue density, bilateral breasts
CPT/HCPCS: 76642; 77062; G0279

== ENCOUNTER 2024-07-30 10:24 | Outpatient (CLI) | payer MEDICAID, SELFPAY | END 2024-07-30 10:25 | disposition home or self-care (01) | PROVIDERS: PCP Family Medicine; Visit Provider Family Medicine | DX: C50.321 Malignant neoplasm of lower-inner quadrant of right male breast (principal) | CPT/HCPCS: 19083; 88305; 88342 ==

== ENCOUNTER 2024-08-08 14:30 | Outpatient (CLI) | payer MEDICAID, SELFPAY ==
--- NOTE | 2024-08-08 15:00 | PETR_ITS ---
PROCEDURE INFORMATION: Exam: PET/CT Skull Base to Mid-thigh Exam date and time: 08/08/2024 3:29 PM Age: 54 years old Clinical indication: Condition or disease; Condition/disease: Breast right cancer; Prior surgery; Surgery date: 1-6 months; Surgery type: Coronary stents; Patient HX: Riana cell cancer; Additional info: New onset cancer in right breast, possible metastasis, right breast LABS AND CLINICAL REPORTS: Glucose: 136 mg/dl Treatment strategy for malignancy (PET staging): Initial Staging (PI) TECHNIQUE: Imaging protocol: Following at least four-hour fasting and following the injection of radiopharmaceutical, low dose CT images were obtained. Then, PET images were obtained. Attenuation corrected images were constructed using the CT scan. Fused images of PET and CT were reviewed. The standardized uptake values (SUV) reported below are maximum values within a region of interest, expressed in gm/ml. Exam includes orbital meatal line to mid-thigh. SUV normalization method: BodyWeight Radiopharmaceutical: 11.69 mCi F-18 FDG (Fluorodeoxyglucose), IV. Time of imaging post radiopharmaceutical administration: 49 minutes Injection site: right ac COMPARISON: 1. CT kidney stone [id number] 05/10/2024 1:33 AM 2. [place] [id number] 07/30/2024 10:39 AM 3. US breast RT limited* [id number] 07/21/2024 9:25 AM FINDINGS: Brain: Visualized brain has normal physiologic uptake. Pharynx: No abnormal uptake. Larynx: No abnormal uptake. Lungs, pleura and trachea: No abnormal uptake. Heart: Normal physiologic uptake. Coronary arteries: Moderate coronary artery calcification. Mediastinal space: No abnormal uptake. Liver: No abnormal uptake. Diffuse hypoattenuation with mild sparing adjacent to the gallbladder fossa. Gallbladder and biliary ducts: No abnormal uptake. Cholelithiasis. Pancreas: No abnormal uptake. Spleen: No abnormal uptake. Adrenal glands: No abnormal uptake. Kidneys and ureters: Normal physiologic uptake. Mild symmetric perirenal fat stranding, stable. Stomach and bowel: No abnormal uptake. Colonic diverticulosis without findings of diverticulitis. Vasculature: No abnormal uptake. Mild systemic atherosclerotic calcification without aortic aneurysm. Lymph nodes: No abnormal uptake. No lymphadenopathy in the head, neck, chest, abdomen, pelvis, and extremities. Skeleton: No abnormal uptake in the visualized axial and appendicular skeleton. Scattered nonaggressive sclerotic foci without FDG uptake likely represent benign bone islands. Mild degenerative changes along the spine and sacroiliac joints. Left shoulder periarticular FDG uptake without underlying CT abnormality is likely inflammatory. FDG uptake adjacent to the right ischial tuberosity and bilateral greater trochanters without underlying CT abnormality also likely inflammatory. Soft tissues: 2.6 x 1.5 cm FDG avid right breast mass on axial image 128 shows SUV max 5.2. METRICS: Mediastinal blood pool: SUV mean 2.6 Liver uptake: SUV mean 2.9 PET/PET skull to thigh INIT [id number] IMPRESSION: 1. FDG avid right breast mass in keeping with reported malignancy. 2. Additional chronic and incidental findings as above, to include hepatic steatosis, atherosclerosis, colonic diverticulosis, and cholelithiasis.
== END 2024-08-08 14:31 | disposition home or self-care (01) ==
LOC: RAD 14:30
PROVIDERS: PCP Family Medicine; Visit Provider Family Medicine
DX: C7B.1 Secondary Merkel cell carcinoma (principal); I25.84 Coronary atherosclerosis due to calcified coronary lesion; K80.20 Calculus of gallbladder without cholecystitis without obstruction; K57.90 Diverticulosis of intestine, part unspecified, without perforation or abscess without bleeding; N63.10 Unspecified lump in the right breast, unspecified quadrant
CPT/HCPCS: 78815; A9552

== ENCOUNTER 2024-08-14 14:13 | Oncology outpatient (recurring) (ONCR) | payer MEDICAID, SELFPAY ==
[2024-08-14 16:15] LABS: Basophils % 0.5 %; Eosinophils # 0.2 10^3/uL (0.0-0.8); Hematocrit 41.9 % (37-53); Lymphocytes # 1.7 10^3/uL (0.8-4.8); Lymphocytes % 26.2 %; Mean Corpuscular HGB Conc 32.7 g/dL (30-55); Mean Corpuscular Hemoglobin 28.8 pg (27-33); Mean Platelet Volume 12.3 fL (7.4-10.4); Monocytes # 0.5 10^3/uL (0.2-0.9); Monocytes % 8.1 %; Neutrophils # 3.99 10^3/uL (1.8-7.7); Neutrophils % 61.9 %; Nucleated Red Blood Cells % 0 %; Platelet Count 134 10^3/cmm (157-399); Red Blood Count 4.76 10^6/uL (3.85-5.65); Red Cell Distribution Width 14.1 % (12.1-15.1); White Blood Count 6.44 10^3/uL (3.29-11.43)
[2024-08-14 16:28] LABS: Erythrocyte Sedimentation Rate < 1 mm/hr (0-10)
[2024-08-14 16:34] LABS: Alanine Aminotransferase 42 U/L (0-41); Albumin Level 4.2 g/dL (3.5-5.2); Alkaline Phosphatase 123 U/L (40-130); Aspartate Amino Transferase 26 U/L (0-40); Blood Urea Nitrogen 14 mg/dL (6-20); Calcium 9.4 mg/dL (8.5-10.5); Carbon Dioxide 24 mmol/L (22-29); Chloride 104 mmol/L (98-107); Creatinine Clr Calc Pharmacy 74.7006; Globulin 2.4 g/dL (1.3-4.6); Glomerular Filtration Rate 52.8 mL/min (90-130); Glucose 259 mg/dL (65-115); Osmolality Calculated 297 mOsm/kg (285-295); Sodium 139 mmol/L (136-145); Total Bilirubin 0.6 mg/dL (0.15-1.2); Total Protein 6.6 g/dL (6.6-8.7)
[2024-08-14 16:50] LABS: Anion Gap 15.2 (5-19); Lactate Dehydrogenase 214 U/L (135-225); Potassium 4.2 mmol/L (3.5-5.1)
[2024-08-14 20:57] LABS: Carcinoembryonic Antigen 3.7 ng/mL (0.0-4.7)
== END 2024-08-19 23:59 | disposition home or self-care (01) ==
PROVIDERS: PCP Family Medicine; Visit Provider Internal Medicine
DX: C7B.1 Secondary Merkel cell carcinoma (principal); N18.31 Chronic kidney disease, stage 3a; E11.9 Type 2 diabetes mellitus without complications; I25.5 Ischemic cardiomyopathy; I10 Essential (primary) hypertension; E78.2 Mixed hyperlipidemia; E66.9 Obesity, unspecified; Z79.4 Long term (current) use of insulin
CPT/HCPCS: 80053; 82378; 83615; 85025; 85651; 86140; 99205

== ENCOUNTER 2024-09-17 14:20 | Oncology outpatient (recurring) (ONCR) | payer MEDICAID, SELFPAY | END 2024-09-19 23:59 | disposition home or self-care (01) | PROVIDERS: PCP Family Medicine; Visit Provider Internal Medicine | DX: C4A Merkel cell carcinoma (principal); I10 Essential (primary) hypertension; I25.118 Atherosclerotic heart disease of native coronary artery with other forms of angina pectoris; I25.5 Ischemic cardiomyopathy; M67.912 Unspecified disorder of synovium and tendon, left shoulder; R06.01 Orthopnea; E11.43 Type 2 diabetes mellitus with diabetic autonomic (poly)neuropathy; K31.84 Gastroparesis; E11.40 Type 2 diabetes mellitus with diabetic neuropathy, unspecified; E11.65 Type 2 diabetes mellitus with hyperglycemia; G47.00 Insomnia, unspecified; R21 Rash and other nonspecific skin eruption; H93.90 Unspecified disorder of ear, unspecified ear; N18.32 Chronic kidney disease, stage 3b; E78.2 Mixed hyperlipidemia; E11.59 Type 2 diabetes mellitus with other circulatory complications; I25.10 Atherosclerotic heart disease of native coronary artery without angina pectoris; Z87.19 Personal history of other diseases of the digestive system; E11.69 Type 2 diabetes mellitus with other specified complication; E11.22 Type 2 diabetes mellitus with diabetic chronic kidney disease; N18.30 Chronic kidney disease, stage 3 unspecified; R14.0 Abdominal distension (gaseous); E66.9 Obesity, unspecified; Z68.39 Body mass index [BMI] 39.0-39.9, adult | CPT/HCPCS: 99213; 99214 ==

== ENCOUNTER → 2024-09-22 13:29 | Outpatient (BNVA) | payer MEDICAID, SELFPAY | PROVIDERS: PCP Family Medicine; Visit Provider Anesthesiology Pain Medicine | DX: M51.16 Intervertebral disc disorders with radiculopathy, lumbar region (principal); G89.29 Other chronic pain | CPT/HCPCS: 99214 ==

== ENCOUNTER → 2024-09-29 13:36 | Outpatient (BNVA) | payer MEDICAID, SELFPAY | PROVIDERS: PCP Family Medicine; Visit Provider Nurse Practitioner Family | DX: M79.18 Myalgia, other site (principal); G89.29 Other chronic pain; M54.9 Dorsalgia, unspecified | CPT/HCPCS: 20553; J1010; J3490 ==

== ENCOUNTER → 2024-10-13 12:43 | Outpatient (BNVA) | payer MEDICAID, SELFPAY | PROVIDERS: PCP Family Medicine; Visit Provider Nurse Practitioner Family | DX: M51.16 Intervertebral disc disorders with radiculopathy, lumbar region (principal); G89.29 Other chronic pain; M54.50 Low back pain, unspecified; M47.816 Spondylosis without myelopathy or radiculopathy, lumbar region | CPT/HCPCS: 99213 ==

== ENCOUNTER 2024-10-15 10:33 | Oncology outpatient (recurring) (ONCR) | payer MEDICAID, SELFPAY | END 2024-10-17 23:59 | disposition home or self-care (01) | PROVIDERS: PCP Family Medicine; Visit Provider Internal Medicine | DX: C4A Merkel cell carcinoma (principal); I12.9 Hypertensive chronic kidney disease with stage 1 through stage 4 chronic kidney disease, or unspecified chronic kidney disease; E11.22 Type 2 diabetes mellitus with diabetic chronic kidney disease; N18.31 Chronic kidney disease, stage 3a; E78.2 Mixed hyperlipidemia; I25.5 Ischemic cardiomyopathy; E66.9 Obesity, unspecified; Z68.39 Body mass index [BMI] 39.0-39.9, adult; K21.9 Gastro-esophageal reflux disease without esophagitis | CPT/HCPCS: 99213 ==

== ENCOUNTER → 2024-10-21 14:33 | Outpatient (BNVA) | payer MEDICAID, SELFPAY | PROVIDERS: PCP Family Medicine; Visit Provider Anesthesiology Pain Medicine | DX: M47.816 Spondylosis without myelopathy or radiculopathy, lumbar region (principal); G89.29 Other chronic pain; M54.9 Dorsalgia, unspecified | CPT/HCPCS: 64635; 64636; J1010 ==

== ENCOUNTER → 2024-10-22 14:40 | Outpatient (BNVA) | payer MEDICAID, SELFPAY | PROVIDERS: PCP Family Medicine; Visit Provider Nurse Practitioner Family | DX: C4A.9 Merkel cell carcinoma, unspecified (principal); L21.8 Other seborrheic dermatitis; L57.8 Other skin changes due to chronic exposure to nonionizing radiation; D22.5 Melanocytic nevi of trunk | CPT/HCPCS: 99204 ==

== ENCOUNTER → 2024-10-24 12:42 | Outpatient (BNVA) | payer MEDICAID, SELFPAY | PROVIDERS: PCP Family Medicine; Visit Provider Internal Medicine | DX: I10 Essential (primary) hypertension (principal); I49.9 Cardiac arrhythmia, unspecified | CPT/HCPCS: 36415; 80048; 83880; 99204 ==

== ENCOUNTER → 2024-11-05 11:31 | Outpatient (BNVA) | payer MEDICAID, SELFPAY | PROVIDERS: PCP Family Medicine; Visit Provider Internal Medicine | DX: I10 Essential (primary) hypertension (principal); E11.22 Type 2 diabetes mellitus with diabetic chronic kidney disease; I25.118 Atherosclerotic heart disease of native coronary artery with other forms of angina pectoris; I25.5 Ischemic cardiomyopathy; R06.01 Orthopnea; E11.43 Type 2 diabetes mellitus with diabetic autonomic (poly)neuropathy; K31.84 Gastroparesis; E11.40 Type 2 diabetes mellitus with diabetic neuropathy, unspecified; E11.65 Type 2 diabetes mellitus with hyperglycemia; G47.00 Insomnia, unspecified; R21 Rash and other nonspecific skin eruption; H93.90 Unspecified disorder of ear, unspecified ear; N18.32 Chronic kidney disease, stage 3b; E78.2 Mixed hyperlipidemia; E11.59 Type 2 diabetes mellitus with other circulatory complications; I25.10 Atherosclerotic heart disease of native coronary artery without angina pectoris; Z87.19 Personal history of other diseases of the digestive system; E11.69 Type 2 diabetes mellitus with other specified complication; E78.5 Hyperlipidemia, unspecified; N18.30 Chronic kidney disease, stage 3 unspecified; R14.0 Abdominal distension (gaseous); R63.5 Abnormal weight gain | CPT/HCPCS: 99214 ==

== ENCOUNTER 2024-12-01 21:09 | Emergency (ER) | payer MEDICAID, SELFPAY ==
[2024-12-01 21:12] VITALS: BP 149/68; PULSE 61; RESP 18; TEMP 36.4; O2SAT 95
--- NOTE | 2024-12-01 21:59 | CTR_ITS ---
PROCEDURE INFORMATION: Exam: CT Lumbar Spine Without Contrast Exam date and time: 12/01/2024 10:19 PM Age: 54 years old Clinical indication: Pain; Lumbago with sciatica; Right; Additional info: Severe low back pain down RT leg, recent cancer dx TECHNIQUE: Imaging protocol: Computed tomography of the lumbar spine without contrast. Radiation optimization: All CT scans at this facility use at least one of these dose optimization techniques: automated exposure control; mA and/or kV adjustment per patient size (includes targeted exams where dose is matched to clinical indication); or iterative reconstruction. COMPARISON: PT PET skull to thigh INIT [id number] 08/08/2024 3:29 PM RADIATION DOSE METRICS: Total DLP (mGy-cm): 1623.08 FINDINGS: Bones/joints: Negative for focal bony lesion L1-L2: No significant disc bulge or herniation. No severe spinal canal stenosis. No significant neural foraminal narrowing. L2-L3: No significant disc bulge or herniation. No severe spinal canal stenosis. No significant neural foraminal narrowing. L3-L4: No significant disc bulge or herniation. No severe spinal canal stenosis. No significant neural foraminal narrowing. L4-L5: L4-L5 broad-based disc bulge with [id number] spinal canal and bilateral foraminal narrowing. L5-S1: L5-S1 broad-based disc bulge and productive degenerative endplate changes with mild spinal canal and bilateral foraminal narrowing. Soft tissues: Unremarkable. CT/CT lumbar spine wo con* [id number] IMPRESSION: 1. L4-L5 broad-based disc bulge with mrht-sa-qqhmbffn spinal canal and bilateral foraminal narrowing. 2. L5-S1 broad-based disc bulge and productive degenerative endplate changes with mild spinal canal and bilateral foraminal narrowing.
--- NOTE | 2024-12-01 21:59 | W.ED.BACK ---
HPI - Back Pain/Injury General: Chief Complaint: Back Pain/Injury Stated Complaint: back pain Time Seen by Provider: 12/01/24 21:20 Source: patient Mode of arrival: ambulatory Limitations: no limitations History of Present Illness: Patient is a 54-year-old male who presents the emergency department complaining of lower back pain chronically for months. States that he dealt with this pain a while back, years ago, where he had procedure done to burn some nerves. States that the pain seemingly went away up until a few months ago it came back and has been constant since. Of note he states that he was diagnosed with [place] cell skin cancer in July, is set to undergo chemoradiation later this month. Denies any bowel or bladder incontinence or saddle anesthesia. Does note the pain radiates down his right lower extremity. Takes baclofen for pain, states this has not been helping. Does not report any fevers, trauma, unexplained weight loss, night sweats, neurological symptoms, IVDU, or chronic steroid use. MD elicited complaint: back pain Pertinent past history: prior back pain and cancer Onset (ago): month(s) Timing: constant Severity: severe Similar Symptoms Previously: Yes Location: lumbar spine Radiation: right leg below the knee Exacerbating factors: movement Relieving factors: none Associated symptoms: Deny abdominal pain, difficulty walking, fecal incontinence, fever(s), syncope or vomiting Related Data Home Medications ?Medication ?Instructions ?Recorded ?Confirmed magnesium oxide 400 mg (241.3 mg 400 mg PO DAILY 06/30/21 11/19/24 magnesium) tablet sacubitril 49 mg-valsartan 51 mg 1 tab PO BID 05/12/24 11/19/24 tablet (Entresto) Previous Rx's ?Medication ?Instructions ?Recorded blood-glucose meter #1 ea 09/09/20 aspirin 81 mg tablet,delayed 81 mg PO DAILY #30 tabs 01/26/21 release ([place] Low Dose Aspirin) nitroglycerin 0.4 mg sublingual 0.4 mg sublingual Q5M PRN chest 01/04/22 tablet pain 30 days #30 tabs CPAP and supplies. #1 ea 06/26/22 sumatriptan succinate 25 mg tablet See Rx Instructions PO .COMPLEX 09/21/23 #30 tabs blood-glucose meter,continuous #1 ea 09/25/23 ([employer] G7 Lab Intern) pregabalin 25 mg capsule (Lyrica) 25 mg PO BID #30 caps 04/04/24 blood sugar diagnostic (ReliOn #100 ea 04/07/24 Prime Test Strips) isosorbide mononitrate 30 mg See Rx Instructions .Route 04/23/24 tablet,extended release 24 hr .COMPLEX #180 tabs topiramate 25 mg tablet 25 mg PO DAILY #90 tabs 07/18/24 atorvastatin 80 mg tablet See Rx Instructions .Route 07/23/24 .COMPLEX #90 tabs pantoprazole 40 mg tablet,delayed See Rx Instructions .Route 07/23/24 release .COMPLEX #180 tabs escitalopram oxalate 10 mg tablet 10 mg PO DAILY #90 tabs 08/21/24 (Lexapro) insulin pump cart,auto,BT,G6/7 #10 ea 09/17/24 (Omnipod 5 G6-G7 Pods (Gen 5) subcutaneous cartridge) insulin pump cartridge,auto #1 ea 09/17/24 dose,BT,G6/G7 with controller subcutaneous (Omnipod 5 G6-G7 Intro Kit(Gen 5) subcutaneous cartridge and controller) baclofen 10 mg tablet 15 mg (1.5 x 10 mg) PO BID PRN 10/13/24 muscle spasm #60 tabs fenofibrate micronized 67 mg See Rx Instructions .Route 10/16/24 capsule .COMPLEX #30 caps fluticasone propionate 50 2 spray intranasal DAILY #16 grams 10/16/24 mcg/actuation nasal spray,suspension (Flonase Allergy Relief) furosemide 20 mg tablet (Lasix) 20 mg PO DAILY #3 tabs 10/27/24 insulin lispro 100 unit/mL See Rx Instructions .Route 11/05/24 subcutaneous solution (Humalog .COMPLEX #45 mL U-100 Insulin) carvedilol 25 mg tablet See Rx Instructions .Route 11/10/24 .COMPLEX #180 tabs clopidogrel 75 mg tablet 75 mg PO DAILY 90 days #90 tabs 11/10/24 blood-glucose sensor ([employer] G7 #9 ea 11/25/24 Sensor device) trazodone 150 mg tablet 150 mg PO DAILY #90 tabs 11/26/24 ketorolac 10 mg tablet 10 mg PO Q8H PRN pain #15 tabs 12/01/24 Allergies Allergy/AdvReac Type Severity Reaction Status Date / Time Latex, Natural Rubber Allergy Severe Rash Verified 12/01/24 21:17 Review of Systems General: Reports: 10 or more systems reviewed and unremarkable except in HPI and below Const: Denies: fever(s) Card: Denies: chest pain, palpitations or syncope Resp: Denies: dyspnea or productive cough GI: Denies: abdominal pain, vomiting, diarrhea or fecal incontinence : Denies: urinary incontinence Musc: Reports: back pain and extremity pain (Right lower extremity); Denies: neck pain Skin/Breast: Denies: rash or skin pain Neuro: Denies: numbness in extremities, weakness in extremities or difficulty walking PFSH ED PFSH: Medical History Hypertension CKD stage 3a, GFR 45-59 ml/min Moderate major depression Impingement syndrome of left shoulder Acromioclavicular joint arthritis Tendinopathy of left rotator cuff Chronic back pain Ischemic cardiomyopathy Atherosclerotic heart disease of [place] coronary artery with other forms of angina pectoris Dyslipidemia associated with type 2 diabetes mellitus Benign essential hypertension with target blood pressure below 140/90 History of pancreatitis one time, noted when diagnosed with diabetes, no recurrance Erectile dysfunction GERD (gastroesophageal reflux disease) Type 2 diabetes mellitus Surgical History History of PTCA Family History Mother CAD (coronary artery disease) several stents Diabetes Family history of premature coronary artery disease Hypertension Stroke Father No problems noted. Grandfather Dementia Denies family history of Clotting disorder Hyperlipidemia Psychiatric illness Chronic kidney disease (CKD) Suicide Anesthesia complication Bleeding disorder Lung disease Cancer Social History Smoking and tobacco/nicotine status: never used tobacco/nicotine Alcohol intake: former Substance/Drug Use: never Lives independently: Yes Marital status: Single Current occupational status: unemployed Physical Exam Const: COMMON NORMALS: no acute distress, patient oriented x3, no limitations, healthy appearing and alert Resp: COMMON NORMALS: normal respiratory effort, No retractions, No use of accessory muscles and clear to auscultation bilaterally AUSCULTATION: clear to auscultation bilaterally Cardio: COMMON NORMALS: regular rate, regular rhythm, S1 normal heart sound present and S2 normal heart sound present RATE: regular rate RHYTHM: regular rhythm HEART SOUNDS: S1 normal heart sound present and S2 normal heart sound present Back/Pelvis: OTHER: Normal visual examination. Lumbar spinous process tenderness as well as reproducible tenderness to palpation to right paralumbar muscles. No signs of trauma or step-off deformity. Right leg raise positive on the right. Extremity: COMMON NORMALS: normal to inspection and full ROM Neuro: COMMON NORMALS: patient oriented x3, moves all extremities, no focal motor deficits, no sensory deficits noted, deep tendon reflexes 2+ bilaterally and gait normal SENSORIUM/ORIENTATION: Yes alert OTHER: L3, L4, L5, and S1 nerve sensations intact. Normal knee jerk and ankle jerk reflexes. No ankle clonus. Skin: COMMON NORMALS: no rashes or lesions noted GENERAL SKIN EXAM: no rashes or lesions noted Course Vital Signs: Vital signs: Vital Signs Temperature 97.5 F L 12/01/24 21:12 Pulse Rate 80 12/01/24 22:43 Respiratory Rate 18 12/01/24 21:12 Blood Pressure 141/90 12/01/24 22:43 Pulse Oximetry 95 12/01/24 22:43 Oxygen Delivery Me thod Room Air 12/01/24 22:43 MDM - Back Pain/Injury Medical Decision Making Patient presenting with low back pain, down the that chronically for months and has had issues years ago requiring procedure. Recent diagnosed history of cancer, and with worsening back pain wanted to rule out any metastasis to the spine. No red flag symptoms otherwise on exam. CT lumbar spine did not show any focal bony lesions, and he notes significant improvement after receiving medications here in the ED. Will have him follow-up with regular doctor for general reevaluation as I suspect lumbar radiculopathy. General precautions given of which she verbalized understanding. Labs Radiology Impressions Lumbar Spine CT 12/01/24 21:59 IMPRESSION: 1. L4-L5 broad-based disc bulge with [id number]-kv-pyblgygv spinal canal and bilateral foraminal narrowing. 2. L5-S1 broad-based disc bulge and productive degenerative endplate changes with mild spinal canal and bilateral foraminal narrowing. All radiology interpretation(s) finalized by discharge Discharge Plan Discharge Patient Disposition: Home Clinical Impression: Lumbar radiculopathy Condition: Stable Prescriptions: New ketorolac 10 mg tablet 10 mg PO Q8H PRN (Reason: pain) Qty: 15 0RF No Action (DME) blood-glucose meter Kit See Rx Instructions .ROUTE .MEDSUPPLY Qty: 1 0RF Rx Instructions: As directed nitroglycerin 0.4 mg tablet, sublingual 0.4 mg sublingual Q5M PRN (Reason: chest pain) 30 Days Qty: 30 3RF Rx Instructions: until response; do not exceed 3 doses per episode fluticasone propionate [Flonase Allergy Relief] 50 mcg/actuation spray,suspension 2 spray intranasal DAILY Qty: 16 0RF Rx Instructions: administer into each nostril insulin lispro [Humalog U-100 Insulin] 100 unit/mL solution See Rx Instructions .ROUTE .COMPLEX MDD 150 Qty: 45 3RF Rx Instructions: via insulin pump; (DME) CPAP and supplies. See Rx Instructions .Route .MEDSUPPLY Qty: 1 5RF Rx Instructions: Please issue CPAP, masks, tubing, filters, reservoirs, and all necessary supplies. pregabalin [Lyrica] 25 mg capsule 25 mg PO BID Qty: 30 0RF Entresto 49-51 mg tablet 1 tab PO BID (DME) Omnipod 5 G6-G7 Pods (Gen 5) Cartridge See Rx Instructions .Route Qty: 10 3RF Rx Instructions: change pod every 3 days (DME) Omnipod 5 G6-G7 Intro Kt(Gen5) Cartridge See Rx Instructions .Route Qty: 1 0RF Rx Instructions: As directed baclofen 10 mg tablet 15 mg PO BID PRN (Reason: muscle spasm) Qty: 60 1RF sumatriptan succinate 25 mg tablet See Rx Instructions PO .COMPLEX Qty: 30 0RF Rx Instructions: take 1 tab at onset of headache; if no relief may repeat 1 tab after at least 2 hrs; max = 4 tabs/24 hr PO (DME) Dexcom G7 Lab Intern Misc See Rx Instructions .Route Qty: 1 0RF Rx Instructions: As directed (DME) [employer] Prime Test Strips Strip See Rx Instructions .Route Qty: 100 6RF Rx Instructions: three times a day isosorbide mononitrate 30 mg tablet extended release 24 hr See Rx Instructions .ROUTE .COMPLEX Qty: 180 3RF Dose Instruction: TAKE 1 TABLET BY MOUTH TWICE DAILY Rx Instructions: TAKE 1 TABLET BY MOUTH TWICE DAILY topiramate 25 mg tablet 25 mg PO DAILY Qty: 90 1RF atorvastatin 80 mg tablet See Rx Instructions .ROUTE .COMPLEX Qty: 90 1RF Dose Instruction: TAKE 1 TABLET BY MOUTH EVERY DAY Rx Instructions: TAKE 1 TABLET BY MOUTH EVERY DAY pantoprazole 40 mg tablet,delayed release (DR/EC) See Rx Instructions .ROUTE .COMPLEX Qty: 180 1RF Dose Instruction: TAKE 1 TABLET BY MOUTH TWICE DAILY Rx Instructions: TAKE 1 TABLET BY MOUTH TWICE DAILY escitalopram oxalate [Lexapro] 10 mg tablet 10 mg PO DAILY Qty: 90 0RF fenofibrate micronized 67 mg capsule See Rx Instructions .ROUTE .COMPLEX Qty: 30 0RF Dose Instruction: take 1 capsule BY MOUTH EVERY DAY Rx Instructions: take 1 capsule BY MOUTH EVERY DAY furosemide [Lasix] 20 mg tablet 20 mg PO DAILY Qty: 3 0RF carvedilol 25 mg tablet See Rx Instructions .ROUTE .COMPLEX Qty: 180 3RF Dose Instruction: TAKE 1 TABLET BY MOUTH TWICE DAILY *take with meal/food* Rx Instructions: TAKE 1 TABLET BY MOUTH TWICE DAILY *take with meal/food* clopidogrel 75 mg tablet 75 mg PO DAILY 90 Days Qty: 90 3RF (DME) Dexcom G7 Sensor Device See Rx Instructions .ROUTE .COMPLEX Qty: 9 0RF Dose Instruction: CHANGE every 10 DAYS Rx Instructions: CHANGE every 10 DAYS trazodone 150 mg tablet 150 mg PO DAILY Qty: 90 0RF aspirin [[place] Low Dose Aspirin] 81 mg tablet,delayed release (DR/EC) 81 mg PO DAILY Qty: 30 5RF magnesium oxide 400 mg (241.3 mg magnesium) tablet 400 mg PO DAILY Discharge Orders: Discharge ED (Routine); Ordered 12/01/24 Ordered By: Chuck Hernandez Referrals: Eduin Lozano MD [Primary Care Provider] - Patient Instructions: Lumbar Radiculopathy (ED) Activity Restrictions/Additional Instructions: Toradol as prescribed. Range of motion exercises, heat. Follow-up with your regular doctor for reevaluation. Return with any new or worsening. Print Language: Upper Sorbian Coding Level of Care Code ED [employer] Team Member for Hazel Mancia
[2024-12-01] MEDS: dexamethasone 10 mg/mL INJ IM (22:25)
[2024-12-01] MEDS: ketorolac 60 mg/2 mL INJ IM (22:25)
[2024-12-01] MEDS: orphenadrine 30 mg/mL Inj 2 mL 60 MG IM (22:26)
[2024-12-01 22:43] VITALS: BP 141/90; PULSE 80; O2SAT 95
[2024-12-02 00:04] VITALS: BP 135/88; PULSE 74; O2SAT 96
== END 2024-12-01 23:50 | disposition home or self-care (01) ==
PROVIDERS: Emergency Provider Physician Assistant; PCP Family Medicine
DX: M54.16 Radiculopathy, lumbar region (principal); Z79.4 Long term (current) use of insulin; Z79.82 Long term (current) use of aspirin; E78.5 Hyperlipidemia, unspecified; E11.22 Type 2 diabetes mellitus with diabetic chronic kidney disease; I12.9 Hypertensive chronic kidney disease with stage 1 through stage 4 chronic kidney disease, or unspecified chronic kidney disease; N18.31 Chronic kidney disease, stage 3a
CPT/HCPCS: 72131; 96372; 99284; J1100; J1885; J2360

== ENCOUNTER → 2024-12-09 12:59 | Outpatient (BNVA) | payer OTHER, SELFPAY | PROVIDERS: PCP Family Medicine; Visit Provider Psychiatry & Neurology Psychiatry | DX: Z79.899 Other long term (current) drug therapy (principal) | CPT/HCPCS: 80061; 83036; 83721 ==

== ENCOUNTER 2024-12-17 11:31 | Oncology outpatient (recurring) (ONCR) | payer MEDICAID, SELFPAY ==
[2024-11-19 09:11] LABS: Basophils % 0.8 %; Eosinophils # 0.3 10^3/uL (0.0-0.8); Eosinophils % 4.9 %; Hematocrit 40.7 % (37-53); Lymphocytes # 1.8 10^3/uL (0.8-4.8); Lymphocytes % 33.3 %; Mean Corpuscular HGB Conc 32.4 g/dL (30-55); Mean Corpuscular Volume 89.5 fl (82-101); Mean Platelet Volume 11.9 fL (7.4-10.4); Monocytes # 0.5 10^3/uL (0.2-0.9); Monocytes % 8.8 %; Neutrophils # 2.76 10^3/uL (1.8-7.7); Neutrophils % 51.8 %; Nucleated Red Blood Cells % 0 %; Platelet Count 140 10^3/cmm (157-399); Red Blood Count 4.55 10^6/uL (3.85-5.65); White Blood Count 5.32 10^3/uL (3.29-11.43)
[2024-11-19 09:22] LABS: Erythrocyte Sedimentation Rate < 1 mm/hr (0-10)
[2024-11-19 09:25] LABS: Alanine Aminotransferase 27 U/L (0-41); Albumin Level 4.1 g/dL (3.5-5.2); Alkaline Phosphatase 91 U/L (40-130); Aspartate Amino Transferase 18 U/L (0-40); Blood Urea Nitrogen 18 mg/dL (6-20); Calcium 8.9 mg/dL (8.5-10.5); Carbon Dioxide 27 mmol/L (22-29); Chloride 107 mmol/L (98-107); Globulin 2.1 g/dL (1.3-4.6); Glomerular Filtration Rate 45.3 mL/min (90-130); Glucose 240 mg/dL (65-115); Lactate Dehydrogenase 182 U/L (135-225); Osmolality Calculated 304 mOsm/kg (285-295); Sodium 142 mmol/L (136-145); Total Bilirubin 0.4 mg/dL (0.15-1.2); Total Protein 6.2 g/dL (6.6-8.7)
== END 2024-12-17 23:59 | disposition home or self-care (01) ==
PROVIDERS: PCP Family Medicine; Visit Provider Internal Medicine
DX: Z53.9 Procedure and treatment not carried out, unspecified reason (principal)
CPT/HCPCS: 36415; 80053; 83615; 85025; 85651; 86140; 99213

== ENCOUNTER 2025-01-15 11:48 | Oncology outpatient (recurring) (ONCR) | payer MEDICAID, SELFPAY ==
[2024-12-11 15:43] VITALS: BP 152/84; BMI 39.8
== END 2025-01-17 23:59 | disposition home or self-care (01) ==
PROVIDERS: PCP Family Medicine; Visit Provider Internal Medicine
DX: C4A Merkel cell carcinoma (principal); E66.9 Obesity, unspecified; Z87.891 Personal history of nicotine dependence; I25.5 Ischemic cardiomyopathy; E78.5 Hyperlipidemia, unspecified; K21.9 Gastro-esophageal reflux disease without esophagitis; I13.10 Hypertensive heart and chronic kidney disease without heart failure, with stage 1 through stage 4 chronic kidney disease, or unspecified chronic kidney disease; E11.22 Type 2 diabetes mellitus with diabetic chronic kidney disease; N18.31 Chronic kidney disease, stage 3a; Z79.4 Long term (current) use of insulin
CPT/HCPCS: 99213

== ENCOUNTER → 2025-01-30 12:09 | Outpatient (BNVA) | payer MEDICAID, SELFPAY ==
[2024-12-11 15:43] VITALS: BP 152/84; BMI 39.8
== END ==
PROVIDERS: PCP Family Medicine; Visit Provider Internal Medicine
DX: E11.9 Type 2 diabetes mellitus without complications (principal); I10 Essential (primary) hypertension; E11.43 Type 2 diabetes mellitus with diabetic autonomic (poly)neuropathy; E11.40 Type 2 diabetes mellitus with diabetic neuropathy, unspecified; E11.65 Type 2 diabetes mellitus with hyperglycemia; N18.32 Chronic kidney disease, stage 3b; E78.2 Mixed hyperlipidemia; E11.59 Type 2 diabetes mellitus with other circulatory complications; E11.69 Type 2 diabetes mellitus with other specified complication; E78.5 Hyperlipidemia, unspecified; E11.22 Type 2 diabetes mellitus with diabetic chronic kidney disease; N18.30 Chronic kidney disease, stage 3 unspecified; R63.5 Abnormal weight gain
CPT/HCPCS: 99214

== ENCOUNTER → 2025-03-05 10:56 | Outpatient (BNVA) | payer MEDICAID, SELFPAY ==
[2024-12-11 15:43] VITALS: BP 152/84; BMI 39.8
== END ==
PROVIDERS: PCP Family Medicine; Visit Provider Internal Medicine
DX: I10 Essential (primary) hypertension (principal); E11.43 Type 2 diabetes mellitus with diabetic autonomic (poly)neuropathy; N18.32 Chronic kidney disease, stage 3b; E78.2 Mixed hyperlipidemia; E11.59 Type 2 diabetes mellitus with other circulatory complications; E11.69 Type 2 diabetes mellitus with other specified complication; E78.5 Hyperlipidemia, unspecified; E11.22 Type 2 diabetes mellitus with diabetic chronic kidney disease; N18.30 Chronic kidney disease, stage 3 unspecified; R63.5 Abnormal weight gain
CPT/HCPCS: 99214

== ENCOUNTER 2025-03-06 11:31 | Outpatient (CLI) | payer MEDICAID, SELFPAY ==
[2024-12-11 15:43] VITALS: BP 152/84; BMI 39.8
--- NOTE | 2025-03-06 12:00 | PETR_ITS ---
PROCEDURE INFORMATION: Exam: PET/CT Skull Base to Mid-thigh Exam date and time: 03/06/2025 12:49 PM Age: 54 years old Clinical indication: Condition or disease; Primary cancer: Evans cell carcinoma; Additional info: Evans cell carcinoma, monitor LABS AND CLINICAL REPORTS: Glucose: 187 mg/dl Treatment strategy for malignancy (PET staging): Restaging (PS) TECHNIQUE: Imaging protocol: Following at least four-hour fasting and following the injection of radiopharmaceutical, low dose CT images were obtained. Then, PET images were obtained. Attenuation corrected images were constructed using the CT scan. Fused images of PET and CT were reviewed. The standardized uptake values (SUV) reported below are maximum values within a region of interest, expressed in gm/ml. Exam includes orbital meatal line to mid-thigh. SUV normalization method: BodyWeight Radiopharmaceutical: 10.94 mCi F-18 FDG (Fluorodeoxyglucose), IV. Time of imaging post radiopharmaceutical administration: 48 minutes Injection site: RAC COMPARISON: PT PET skull to thigh INIT [id number] 08/08/2024 3:29 PM FINDINGS: Brain: Visualized brain has normal physiologic uptake. Pharynx: No abnormal uptake. Larynx: No abnormal uptake. Lungs, pleura and trachea: No abnormal uptake. Heart: Normal physiologic uptake. Severe coronary artery calcifications. Mediastinal space: No abnormal uptake. Liver: No abnormal uptake. Diffuse hepatic steatosis. Gallbladder and biliary ducts: No abnormal uptake. Cholelithiasis. Pancreas: No abnormal uptake. Spleen: No abnormal uptake. Adrenal glands: No abnormal uptake. Kidneys and ureters: Normal physiologic uptake. Stomach and bowel: No abnormal uptake. Colonic diverticulosis without diverticulitis. Vasculature: No abnormal uptake. Lymph nodes: No abnormal uptake. No lymphadenopathy in the head, neck, chest, abdomen, pelvis, and extremities. Skeleton: No abnormal uptake in the visualized axial and appendicular skeleton. Soft tissues: Interval decrease in size of the previously noted nodular FDG avid right breast mass. There is residual mild irregular skin thickening, with a residual area of linear increased FDG uptake, maximum SUV 3.0, similar to blood pool and liver uptake (previous FDG avidity of the mass was maximum SUV 5.1). There is underlying fat stranding and inflammatory changes and a non FDG avid ill-defined simple fluid collection measuring 2.9 x 1.9 cm (series 202, image 153). METRICS: Mediastinal blood pool: Mean SUV of 2.7 Liver uptake: Mean SUV of 2.8 PET/PET skull to thigh SUBS [id number] IMPRESSION: 1. Interval decrease in size and FDG avidity of the right breast mass. There is now residual mild irregular skin thickening with linear areas of increased FDG uptake similar to blood pool and liver uptake. There is also new subjacent fat stranding and fluid, which is not FDG avid and is favored to be inflammatory. Findings would favor posttreatment changes. However, history provided denies prior treatment. As such, findings remain indeterminate and continued surveillance is recommended. 2. No functional or anatomic evidence of metastatic disease.
== END 2025-03-06 11:32 | disposition home or self-care (01) ==
LOC: RAD 11:31
PROVIDERS: PCP Family Medicine; Visit Provider Internal Medicine Medical Oncology
DX: C4A.9 Merkel cell carcinoma, unspecified (principal)
CPT/HCPCS: 78815; A9552

== ENCOUNTER 2025-05-03 13:33 | Emergency (ER) | payer MEDICAID, SELFPAY ==
--- OUTSIDE RECORDS SUMMARY | 2024-06-14 04:00 | XMS_ITS ---
Author Organization [facility] Address [address] [place] [address] Care Team Providers Care Economics Teacher Name Role Phone Dr Sergio Dixon DO Primary Care Provider Emanuel Oropeza MD, [facility] Unavailable Unavailable Migration, Provider Unavailable Unavailable REASON FOR VISIT EMR-Nura Encounters Encounter Location Date Provider Diagnosis Migrated_Facility 0 0 06/14/2024 Provider Migration Plan Of Treatment No Information Progress Notes * Irving NOYOLADOB:1970 (54 yo M)Acc No.[id number]:06/14/2024 Patient: Irving PEACE :1970 A ge:53 Y S ex:Male Address:[address], [place] [address] Subjective: * Chief Complaints: * E MR-Nura * * Date:
--- OUTSIDE RECORDS SUMMARY | 2024-06-15 04:00 | XMS_ITS ---
Author Organization [facility] Address [address] [place] [address] Care Team Providers Care Principal Strategist Name Role Phone Dr Sergio Dixon DO Primary Care Provider Emanuel Oropeza MD, [facility] Unavailable Unavailable Migration, Provider Unavailable Unavailable REASON FOR VISIT EMR-Nura Encounters Encounter Location Date Provider Diagnosis Migrated_Facility 0 0 06/15/2024 Provider Migration Plan Of Treatment No Information Progress Notes * Irving NOYOLADOB:1970 (54 yo M)Acc No.[id number]:06/15/2024 Patient: Irving PEACE :1970 A ge:53 Y S ex:Male Address:[address], [place] [address] Subjective: * Chief Complaints: * E MR-Nura * * Date:
[2024-12-11 15:43] VITALS: BP 152/84; BMI 39.8
[2025-05-03 13:37] VITALS: BP 171/80; PULSE 79; RESP 19; TEMP 36.8; O2SAT 97; BMI 37.5
--- OUTSIDE RECORDS SUMMARY | 2025-05-03 13:38 | XMS_ITS | Clinical Summary ---
Author Organization [facility] Address [address] [facility] Attn: [place] [address] Care Team Providers Care Leather Stretcher Name Role Phone Non-Staff, Physician Primary Care Provider Unava ilable Allergies No known active allergies Medications omeprazole (PriLOSEC) 10 mg Capsule, Delayed Release(E.C.) Take 10 mg by mouth daily. 11/10/2019 Active telmisartan (MICARDIS) 40 mg Tablet Take 40 mg by mouth daily. 11/10/2019 Active clopidogreL (PLAVIX) 75 mg Tablet Take 1 Tablet by mouth daily. 05/20/2024 Active cyclobenzaprine (FLEXERIL) 10 mg tablet Take 10 mg by mouth 3 times daily as needed. for muscle spasms 03/20/2024 Active carvediloL (COREG) 25 mg tablet TAKE 1 TABLET BY MOUTH TWICE DAILY take with meal/food 05/20/2024 Active pregabalin (LYRICA) 100 mg Capsule take 1 capsule BY MOUTH EVERY TWELVE HOURS 60 Capsule 5 12/18/2024 Active Active Problems Problem Noted Date Diagnosed Date HTN (hypertension) 05/13/2012 Tobacco abuse 03/21/2012 Overview (12/16/2020): 3 ppd (03/31) Type II or unspecified type diabetes mellitus without mention of complication, uncontrolled 03/06/2012 Overview (12/16/2020): A1C: 10.7 (02/28) Dx: 02/28 Hypertriglyceridemia 03/06/2012 Overview (12/16/2020): TG: >500 (02/28) Pancreatitis, acute, 02/2803/04/2012 Overview (12/16/2020): Neg US Elevated TG: >500 Encounters Date Type Department Care Team Description 02/10/2025 External Device Data STL ABSTRACTION Provider, Abstract from Last 3 Months Family History Medical History Relation Name Comments Cancer Father Heart Disease Mother Relation Name Status Comments Father Mother Alive Social History Tobacco Use Types Packs/Day Years Used Date Smoking Tobacco: Former Cigarettes Smokeless Tobacco: Current Alcohol Use Standard Drinks/Week Comments No 0 (1 standard drink = 0.6 oz pur e alcohol) Feeling Safe Answer Date Recorded Are you in a relationship wi th someone who hurts you emotionally and/or physically? 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 Gender Identity Not on file Sexual Orientation Not on file Last Filed Vital Signs Vital Sign Reading Time Taken Comments Blood Pressure 137/91 06/26/2024 4:02 PM SHEETMETAL WORKER Pulse 71 06/26/2024 4:02 PM SHEETMETAL WORKER Temperature 36.2 C (97.2 F) 06/26/2024 3:10 PM SHEETMETAL WORKER Respiratory Rate 16 06/26/2024 4:02 PM SHEETMETAL WORKER Oxygen Saturation 97% 06/26/2024 4:02 PM SHEETMETAL WORKER Inhaled Oxygen Concentration - - Weight 113.4 kg (250 lb) 06/26/2024 3:10 PM SHEETMETAL WORKER Height 172.7 cm (5' 8 ) 06/26/2024 3:10 PM SHEETMETAL WORKER Body Mass Index 38.01 06/26/2024 3:10 PM SHEETMETAL WORKER Plan of Treatment Health Maintenance Due Date Last Done Comments DTAP/TDAP/TD VACCINES (1 - Tdap) 1989 HEPATITIS B VACCINES (1 of 3 - 19+ 3-dose series) 1989 COLORECTAL SCREENING 2015 Colorectal Cancer Screening 2015 FIT-DNA Q 3 years 2015 FIT/FOBT Q 1 year 2015 Flex Sig/CT Colonography Q 5 years 2015 Pre-Diabetes and Diabetes Screening 10/24/201910/23 ZOSTER VACCINE (1 of 2) 2020 INFLUENZA VACCINE (#1) 2025 Abdominal Aortic Aneurysm (AAA) Screening Completed 06/27/2013, 07/15/2012 Procedures Procedure Name Priority Date/Time Associated Diagnosis Comments HEMOGLOBIN A1C Routine 10/23/2016 7:40 PM SHEETMETAL WORKER US ABDOMEN COMPLETE Routine 06/27/2013 8 :50 AM SHEETMETAL WORKER Abdominal pain Pancreatitis from Last 3 Months or Most Recently Relevant to Health Maintenance Results * (ABNORMAL) HEMOGLOBIN A1C (10/23/2016 7:40 PM SHEETMETAL WORKER) HEMOGLOBIN A1C 6.8(H) 4.8 - 5.9 % 10/23/2016 9:55 PM SHEETMETAL WORKER [facility] EST. AVG GLUCOSE, A1C 148 mg/dL 10/23/2016 9:55 PM SHEETMETAL WORKER [facility] Blood 10/23/2016 7:40 PM SHEETMETAL WORKER 10/23/2016 9:04 PM SHEETMETAL WORKER us Ammon Nugent DO CHEMISTRY ORDERABLES Final Resu lt Performing Organization Address City/State/[facility] Co de Phone Number [facility] CLIA # [id number] [address] [place] [address] [facility] CLIA # [id number] [address] [place] [address] * US ABDOMEN COMPLETE (06/27/2013 8:50 AM SHEETMETAL WORKER) Anatomical Region Laterality Modality Abdomen Other Narrative 06/27/2013 9:47 AM SHEETMETAL WORKER PROCEDURE ULTRASOUND ABDOMEN, 27 June 2013 DESCRIPTION Hepatic span is 7.7 cm with AP diameter of 16.8 cm and transverse diameter of 7.5 cm. Parenchymal evaluation is limited by patient corpulence and bowel gas. The parenchyma appears dense and heterogeneous. No hepatic focal defect or intrahepatic bile duct dilatation is seen. Common bile duct measures 4.2 mm. Gallbladder shows no stones. There is no pericystic fluid collection. Wall thickness is 2.6 mm. Restrepo sign is negative. The visualized portion of head and body of pancreas appears unremarkable. The pancreatic tail is partially obscured by gas in the LUQ. Aorta and vena cava appear unremarkable to the extent visualized. Right renal span is 11.4 cm and left renal span is 10.7 cm. No renal masses, cysts or hydronephrosis are seen. Splenic span is 12.1 cm. IMPRESSION no acute abdominal findings seen Procedure Note Ramana Weems MD - 10/21/2022 PROCEDURE ULTRASOUND ABDOMEN, 27 June 2013 DESCRIPTION Hepatic span is 7.7 cm with AP diameter of 16.8 cm and transverse diameter of 7.5 cm. Parenchymal evaluation is limited by patient corpulence and bowel gas. The parenchyma appears dense and heterogeneous. No hepatic focal defect or intrahepatic bile duct dilatation is seen. Common bile duct measures 4.2 mm. Gallbladder shows no stones. There is no pericystic fluid collection. Wall thickness is 2.6 mm. Restrepo sign is negative. The visualized portion of head and body of pancreas appears unremarkable. The pancreatic tail is partially obscured by gas in the LUQ. Aorta and vena cava appear unremarkable to the extent visualized. Right renal span is 11.4 cm and left renal span is 10.7 cm. No renal masses, cysts or hydronephrosis are seen. Splenic span is 12.1 cm. IMPRESSION no acute abdominal findings seen us External Provider Mtnv US ORDERABLES Final Res ult from Last 3 Months or Most Recently Relevant to Health Maintenance Insurance MEDICAID [place] Care Teams Leather Stretcher Relationship Specialty Start Date End Date Non-Staff, Physician NO ADDRESS ON FILE PCP - General 12/09/13
--- OUTSIDE RECORDS SUMMARY | 2025-05-03 13:38 | XMS_ITS | Patient Health Record ---
Author Organization [facility] Address [address] [place] [address] Care Team Providers Care Rental Clerk Tool And Equipment Name Role Phone Dr Sergio Dixon DO Primary Care Provider Emanuel Oropeza MD, [facility] Unavailable Unavailable Migration, Provider Unavailable Unavailable Eduin Toscano Unavailable [phone] Allergies No Known Allergies Reason For Referral No Information Medications Medication SIG (Take, Route, Frequency, Duration) Notes Start Date End Date Status Nitroglycerin 0.4 MG Tablet Sublingual as directed Sublingual Activ e Pantoprazole Sodium 40 MG Tablet Delayed Release 1 tablet Orally twice a day Active Pregabalin 25 MG Capsule 1 capsule Orall y Once a day Active Entresto 49-51 MG Tablet 1 tablet Orally Twice a day Active Potassium 99 MG Tablet 1 tablet Orally O nce a day Active Dapagliflozin Propanediol 10 MG Tablet 1 tablet Orally Once a day Active DULoxetine HCl 30 MG Capsule Delayed Release Particles 1 capsule Orally Once a day Active Fenofibrate 67 MG Capsule 1 capsule with a meal Orally Once a day Active traZODone HCl 100 MG Tablet 1 tablet at bedtime Orally Once a day Active Claritin 10 MG Tablet 1 tablet Orally On ce a day Active Acarbose 50 MG Tablet as directed Orally 1-3 times a day Active Magnesium Oxide 400 MG Tablet 1 tablet as needed Orally Once a day Active Atorvastatin Calcium 80 MG Tablet 1 tablet Orally Once a day Active Clopidogrel Bisulfate 75 MG Tablet 1 tablet Orally Once a day Active Social History Tobacco Use: Social History Observation Description Date Details (start date - stop date) Former Smoker NA - NA Social History Tobacco Use: Social Info Question Answer Notes xTobacco Use/Smoking Are you a former smoker How long has it been since you last smoked? 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) Active confirmed Problem Primary hypertension (41059139) Primary hypertension (I10) Active confirmed Encounters Encounter Location Date Provider Diagnosis [facility] [place] [address] [place] [address] 05/07/2024 Eduin Toscano Migrated_Facility 0 0 06/14/2024 Provider Migration Migrated_Facility 0 0 06/15/2024 Provider Migration Plan Of Treatment No Information Insurance Providers Payer Name Payer Address Payer Phone Subscriber Number Group Number Insured Name Patient Relationship to Insured Coverage Start Date Coverage End Date [place] [address] [place] [address] [phone] [id number] Irving Powell Self - patient is the insured Medical (General) History Medical History History ICD Code high blood pressure diabetes heart disease kidney stones high cholesterol sleep apnea gerd Surgical History Surgery Date(Month/Year) tonsillectomy and adenoidectomy cardiac catheterization
--- NOTE | 2025-05-03 14:37 | W.ED.BURNSMK ---
HPI - Burn/Smoke Inhalation General: Chief complaint: Burn/Smoke Inhalation Stated complaint: radation just done, burned and pain all over Time Seen by Provider: 05/03/25 13:56 Source: patient Mode of arrival: ambulatory Limitations: no limitations History of Present Illness: 54-year-old male who has a history of cancer he does receive radiation treatment for this he states that his last radiation treatment was Sunday states he is got a burn over his right chest from the radiation. He states that he has had worsening pain since Sunday over the burn and rates his pain at 8 out of 10 is worse with movement and palpation. Associated symptoms: Deny chest pain, fever(s), headache(s), nausea, neck pain or vomiting Related Data Home Medications ?Medication ?Instructions ?Recorded ?Confirmed magnesium oxide 400 mg (241.3 mg 400 mg PO DAILY 06/30/21 03/05/25 magnesium) tablet ketoconazole 2 % shampoo topical 01/15/25 03/05/25 Previous Rx's ?Medication ?Instructions ?Recorded aspirin 81 mg tablet,delayed 81 mg PO DAILY #30 tabs 01/26/21 release ([place]ston Low Dose Aspirin) CPAP and supplies. #1 ea 06/26/22 blood-glucose,assistant director of residence life,cont #1 ea 09/25/23 (Dexcom G7 Tire Servicer) pregabalin 25 mg capsule (Lyrica) 25 mg PO BID #30 caps 04/04/24 insulin pump cartridge,auto #1 ea 09/17/24 dose,BT,G6/G7 with controller subcutaneous (Omnipod 5 G6-G7 Intro Kit(Gen 5) subcutaneous cartridge and controller) carvedilol 25 mg tablet See Rx Instructions .Route 11/10/24 .COMPLEX #180 tabs fenofibrate micronized 67 mg See Rx Instructions .Route 12/18/24 capsule .COMPLEX #90 caps pen needle, diabetic 31 gauge x #100 ea 12/18/2401/02 (Advocate Pen Needle) atorvastatin 80 mg tablet See Rx Instructions .Route 01/12/25 .COMPLEX #90 tabs pantoprazole 40 mg tablet,delayed See Rx Instructions .Route 01/12/25 release .COMPLEX #180 tabs topiramate 25 mg tablet 25 mg PO DAILY #90 tabs 01/12/25 sacubitril 49 mg-valsartan 51 mg 1 tab PO BID #180 tabs 01/13/25 tablet (Entresto) insulin pump cart,auto,BT,G6/7 #10 ea 02/09/25 (Omnipod 5 G6-G7 Pods (Gen 5) subcutaneous cartridge) trazodone 150 mg tablet 150 mg PO DAILY #90 tabs 02/16/25 hydrocodone 5 mg-acetaminophen 325 1 tab PO BID PRN pain 60 days #60 03/02/25 mg tablet tabs blood-glucose sensor (Dexcom G7 #9 ea 03/03/25 Sensor device) escitalopram oxalate 10 mg tablet 10 mg PO DAILY #90 tabs 03/17/25 (Lexapro) ondansetron 4 mg disintegrating 4 mg PO Q8H PRN nausea and 03/17/25 tablet vomiting #60 tabs insulin glargine 100 unit/mL (3 60 unit (0.6 mL) SUBCUT BID #115 mL 03/19/25 mL) subcutaneous pen (Lantus Solostar U-100 Insulin) insulin lispro 100 unit/mL 30 unit (0.3 mL) SUBCUT TID #80 mL 03/19/25 subcutaneous pen (Humalog KwikPen (U-100) Insulin) isosorbide mononitrate 30 mg See Rx Instructions .Route 04/13/25 tablet,extended release 24 hr .COMPLEX #180 tabs hydrocortisone 1 % topical cream 1 applic topical TID PRN rash 05/03/25 #28.35 grams oxycodone-acetaminophen 7.5 mg-325 1 tab PO Q8H PRN pain #20 tabs 05/03/25 mg tablet (Percocet) Allergies Allergy/AdvReac Type Severity Reaction Status Date / Time Latex, Natural Rubber Allergy Severe Rash Verified 01/30/25 07:55 Review of Systems Const: Denies: fever(s), chills, body aches or change in appetite ENMT: Denies: throat pain or dental pain Card: Denies: chest pain Resp: Denies: dyspnea GI: Denies: abdominal pain, nausea, vomiting or diarrhea Musc: Denies: neck pain or back pain Skin/Breast: Denies: rash Neuro: Denies: headache(s) PFSH ED PFSH: Medical History Psychiatric care Hypertension CKD stage 3a, GFR 45-59 ml/min Moderate major depression Impingement syndrome of left shoulder Acromioclavicular joint arthritis Tendinopathy of left rotator cuff Chronic back pain Ischemic cardiomyopathy Atherosclerotic heart disease of [place] coronary artery with other forms of angina pectoris Dyslipidemia associated with type 2 diabetes mellitus Benign essential hypertension with target blood pressure below 140/90 History of pancreatitis one time, noted when diagnosed with diabetes, no recurrance Erectile dysfunction GERD (gastroesophageal reflux disease) Type 2 diabetes mellitus Surgical History History of PTCA Family History Mother CAD (coronary artery disease) several stents Diabetes Family history of premature coronary artery disease Hypertension Stroke Father No problems noted. Grandfather Dementia Denies family history of Clotting disorder Hyperlipidemia Psychiatric illness Chronic kidney disease (CKD) Suicide Anesthesia complication Bleeding disorder Lung disease Cancer Social History Smoking and tobacco/nicotine status: former use of tobacco/nicotine Quit status (tobacco/nicotine): considering quitting Second hand smoke exposure: No Alcohol intake: current Alcohol intake frequency: holidays/special occasions only Alcohol type: beer and wine Substance/Drug Use: never Adopted: No Caregiver/support person: No Lives independently: Yes Household members: significant other Housing: House Marital status: Single Number of children: 0 Number of grandchildren: 0 Highest education level completed: 11th Grade service: No Current occupational status: unemployed and disabled Current occupation: trying to get disability Current occupational exposures/hazards: No Pets and animals: Yes Pets & animals: dog(s) Leisure activites: other Leisure activities details: watch TV, mess around in the garage Sexually active: Yes Do you think of yourself as: Straight/Heterosexual Current gender identity: Male Geraldine/Presybeterian: Taoism Special geraldine needs: No Agree to transfusion: Yes Physical Exam Const: COMMON NORMALS: patient oriented x3 HENMT: COMMON NORMALS: normocephalic and atraumatic HEAD & SCALP: normocephalic and atraumatic Eye: COMMON NORMALS: conjunctivae normal CONJUNCTIVA: Yes conjunctivae normal Neck/C-Spine: COMMON NORMALS: full ROM and supple Chest: COMMONS NORMALS: normal inspection of the chest OTHER: Superficial burn over right chest Resp: COMMON NORMALS: normal respiratory effort, No retractions, No use of accessory muscles and clear to auscultation bilaterally AUSCULTATION: clear to auscultation bilaterally Cardio: COMMON NORMALS: regular rate, regular rhythm and No murmurs present (Cardio) RATE: regular rate RHYTHM: regular rhythm Extremity: COMMON NORMALS: normal to inspection and full ROM Neuro: COMMON NORMALS: patient oriented x3, moves all extremities and no focal motor deficits Psych: COMMON NORMALS: mental status grossly normal, Normal thought process present and cooperative THOUGHT PROCESS: Normal thought process present Skin: COMMON NORMALS: no rashes or lesions noted and no wounds GENERAL SKIN EXAM: no rashes or lesions noted Course Vital Signs: Vital signs: Vital Signs Temperature 98.2 F 05/03/25 13:37 Pulse Rate 79 05/03/25 13:37 Respiratory Rate 19 H 05/03/25 13:37 Blood Pressure 171/80 05/03/25 13:37 Pulse Oximetry 97 05/03/25 13:37 Oxygen Delivery Me thod Room Air 05/03/25 13:37 MDM - Burn/Smoke Inhalation Medical Decision Making Patient presents here with radiation burn to his chest I did speak to his oncology team will start him on hydrocortisone along with Percocet he is to follow-up with them. No signs of cellulitis. Medical Records I reviewed the patient's medical records. Lab Data I reviewed the patient's lab results. 05/03/25 14:42 05/03/25 14:42 Laboratory Results WBC 5.25 10^3/uL (3.29-11.43) 05/03/25 14:42 RBC 4.70 10^6/uL (3.85-5.65) 05/03/25 14:42 Hgb 13.70 g/dL (11.27-16.99) 05/03/25 14:42 Hct 40.6 % (37-53) 05/03/25 14:42 MCV 86.4 fl (82-101) 05/03/25 14:42 MCH 29.1 pg (27-33) 05/03/25 14:42 MCHC 33.7 g/dL (30-55) 05/03/25 14:42 RDW 14.3 % (12.1-15.1) 05/03/25 14:42 Plt Count 95 10^3/cmm (157-399) L 05/03/25 14:42 MPV 12.2 fL (7.4-10.4) H 05/03/25 14:42 Neut % (Auto) 76.1 % 05/03/25 14:42 Lymph % (Auto) 10.7 % 05/03/25 14:42 [place] % (Auto) 9.7 % 05/03/25 14:42 Eos % (Auto) 2.7 % 05/03/25 14:42 Baso % (Auto) 0.6 % 05/03/25 14:42 Neut # (Auto) 4.00 10^3/uL (1.8-7.7) 05/03/25 14:42 Lymph # (Auto) 0.6 10^3/uL (0.8-4.8) L 05/03/25 14:42 [place] # (Auto) 0.5 10^3/uL (0.2-0.9) 05/03/25 14:42 Eos # (Auto) 0.1 10^3/uL (0.0-0.8) 05/03/25 14:42 Baso # (Auto) 0.0 10^3/uL (0.0-0.1) 05/03/25 14:42 Nucleated RBC % (auto) 0 % 05/03/25 14:42 Nucleated RBCs # 0.0 /100WBC 05/03/25 14:42 Sodium 134 mmol/L (136-145) L 05/03/25 14:42 Potassium 4.5 mmol/L (3.5-5.1) 05/03/25 14:42 Chloride 100 mmol/L (98-107) 05/03/25 14:42 Carbon Dioxide 26 mmol/L (22-29) 05/03/25 14:42 Anion Gap 12.5 (5-19) 05/03/25 14:42 BUN 14 mg/dL (6-20) 05/03/25 14:42 Creatinine 1.2 mg/dL (0.7-1.2) 05/03/25 14:42 GFR Calculation 63.1 mL/min (90-130) L 05/03/25 14:42 Glucose 153 mg/dL (65-115) H 05/03/25 14:42 Calculated Osmolality 282 mOsm/kg (285-295) L 05/03/25 14:42 Calcium 8.9 mg/dL (8.5-10.5) 05/03/25 14:42 No radiology studies performed this visit Discharge Plan Discharge Patient Disposition: Home Clinical Impression: Burn Condition: Stable Prescriptions: New hydrocortisone 1 % cream 1 applic topical TID PRN (Reason: rash) Qty: 28.35 0RF oxycodone-acetaminophen [Percocet] 7.5-325 mg tablet 1 tab PO Q8H PRN (Reason: pain) Qty: 20 0RF No Action (DME) CPAP and supplies. See Rx Instructions .Route .MEDSUPPLY Qty: 1 5RF Rx Instructions: Please issue CPAP, masks, tubing, filters, reservoirs, and all necessary supplies. pregabalin [Lyrica] 25 mg capsule 25 mg PO BID Qty: 30 0RF (DME) Omnipod 5 G6-G7 Intro Kt(Gen5) Cartridge See Rx Instructions .Route Qty: 1 0RF Rx Instructions: As directed ketoconazole 2 % shampoo topical (DME) Dexcom G7 Tire Servicer Misc See Rx Instructions .Route Qty: 1 0RF Rx Instructions: As directed carvedilol 25 mg tablet See Rx Instructions .ROUTE .COMPLEX Qty: 180 3RF Dose Instruction: TAKE 1 TABLET BY MOUTH TWICE DAILY *take with meal/food* Rx Instructions: TAKE 1 TABLET BY MOUTH TWICE DAILY *take with meal/food* (DME) pen needle, diabetic [Advocate Pen Needle] 31 gauge x 5/16 needle See Rx Instructions .Route Qty: 100 3RF Rx Instructions: As directed fenofibrate micronized 67 mg capsule See Rx Instructions .ROUTE .COMPLEX Qty: 90 1RF Dose Instruction: take 1 capsule BY MOUTH EVERY DAY Rx Instructions: take 1 capsule BY MOUTH EVERY DAY topiramate 25 mg tablet 25 mg PO DAILY Qty: 90 1RF atorvastatin 80 mg tablet See Rx Instructions .ROUTE .COMPLEX Qty: 90 1RF Dose Instruction: TAKE 1 TABLET BY MOUTH EVERY DAY Rx Instructions: TAKE 1 TABLET BY MOUTH EVERY DAY pantoprazole 40 mg tablet,delayed release (DR/EC) See Rx Instructions .ROUTE .COMPLEX Qty: 180 1RF Dose Instruction: TAKE 1 TABLET BY MOUTH TWICE DAILY Rx Instructions: TAKE 1 TABLET BY MOUTH TWICE DAILY Entresto 49-51 mg tablet 1 tab PO BID Qty: 180 2RF (DME) Omnipod 5 G6-G7 Pods (Gen 5) Cartridge See Rx Instructions .Route Qty: 10 3RF Rx Instructions: change pod every 2 days trazodone 150 mg tablet 150 mg PO DAILY Qty: 90 0RF hydrocodone-acetaminophen 5-325 mg tablet 1 tab PO BID PRN (Reason: pain) 60 Days Qty: 60 0RF (DME) Dexcom G7 Sensor Device See Rx Instructions .ROUTE .COMPLEX Qty: 9 0RF Dose Instruction: CHANGE every 10 DAYS Rx Instructions: CHANGE every 10 DAYS escitalopram oxalate [Lexapro] 10 mg tablet 10 mg PO DAILY Qty: 90 0RF ondansetron 4 mg tablet,disintegrating 4 mg PO Q8H PRN (Reason: nausea and vomiting) Qty: 60 0RF insulin glargine [Lantus Solostar U-100 Insulin] 100 unit/mL (3 mL) insulin pen 60 unit SUBCUT BID Qty: 115 1RF insulin lispro [Humalog KwikPen Insulin] 100 unit/mL insulin pen 30 unit SUBCUT TID MDD 60 Qty: 80 1RF Rx Instructions: 20 to 30 units three times a day isosorbide mononitrate 30 mg tablet extended release 24 hr See Rx Instructions .ROUTE .COMPLEX Qty: 180 3RF Dose Instruction: TAKE 1 TABLET BY MOUTH TWICE DAILY Rx Instructions: TAKE 1 TABLET BY MOUTH TWICE DAILY aspirin [Winston Low Dose Aspirin] 81 mg tablet,delayed release (DR/EC) 81 mg PO DAILY Qty: 30 5RF magnesium oxide 400 mg (241.3 mg magnesium) tablet 400 mg PO DAILY Discharge Orders: Discharge ED (Routine); Ordered 05/03/25 Ordered By: Cl Farfan Referrals: Eduin Lozano MD [Primary Care Provider, Family Practice] Discharge Diet: Advance as tolerated Discharge Activity: Resume usual activity Patient Instructions: Superficial Burn (ED) Print Language: Welsh Coding Level of Care Code ED President Ceo & Founder for Hazel Mancia
[2025-05-03 14:57] LABS: Hematocrit 40.6 % (37-53); Hemoglobin 13.70 g/dL (11.27-16.99); Mean Corpuscular HGB Conc 33.7 g/dL (30-55); Mean Corpuscular Hemoglobin 29.1 pg (27-33); Mean Corpuscular Volume 86.4 fl (82-101); Nucleated Red Blood Cells % 0 %; Platelet Count 95 10^3/cmm (157-399); Red Blood Count 4.70 10^6/uL (3.85-5.65); White Blood Count 5.25 10^3/uL (3.29-11.43)
[2025-05-03 15:08] LABS: Anion Gap 12.5 (5-19); Blood Urea Nitrogen 14 mg/dL (6-20); Calcium 8.9 mg/dL (8.5-10.5); Carbon Dioxide 26 mmol/L (22-29); Chloride 100 mmol/L (98-107); Creatinine Clr Calc Pharmacy 85.4573; Glucose 153 mg/dL (65-115); Osmolality Calculated 282 mOsm/kg (285-295); Potassium 4.5 mmol/L (3.5-5.1); Sodium 134 mmol/L (136-145)
[2025-05-03] MEDS: ondansetron 2 mg/ML SDV 2 mL 4 MG IVP (15:22)
[2025-05-03] MEDS: HYDROmorphone 0.5 MG/0.5 ML INJ 1 MG IVP (15:22)
[2025-05-03] MEDS: HYDROcodone-acetaminophen 5-325 mg Tablet 1 TAB PO (16:08)
== END 2025-05-03 16:49 | disposition home or self-care (01) ==
PROVIDERS: Emergency Provider Emergency Medicine; PCP Family Medicine
DX: T21.01XA Burn of unspecified degree of chest wall, initial encounter (principal); X58.XXXA Exposure to other specified factors, initial encounter; E11.22 Type 2 diabetes mellitus with diabetic chronic kidney disease; I12.9 Hypertensive chronic kidney disease with stage 1 through stage 4 chronic kidney disease, or unspecified chronic kidney disease; N18.31 Chronic kidney disease, stage 3a; E78.5 Hyperlipidemia, unspecified; I25.118 Atherosclerotic heart disease of native coronary artery with other forms of angina pectoris; C4A.9 Merkel cell carcinoma, unspecified
CPT/HCPCS: 36415; 80048; 85025; 96374; 96375; 99284; J1171; J2405; J9999

== ENCOUNTER → 2025-05-06 13:47 | Outpatient (BNVA) | payer MEDICAID, SELFPAY ==
[2024-12-11 15:43] VITALS: BP 152/84; BMI 39.8
== END ==
PROVIDERS: PCP Family Medicine; Visit Provider Internal Medicine
DX: I25.10 Atherosclerotic heart disease of native coronary artery without angina pectoris (principal); I10 Essential (primary) hypertension; Z98.890 Other specified postprocedural states; Z87.891 Personal history of nicotine dependence
CPT/HCPCS: 99213

== ENCOUNTER → 2025-05-25 11:53 | Outpatient (BNVA) | payer MEDICAID, SELFPAY ==
[2024-12-11 15:43] VITALS: BP 152/84; BMI 39.8
== END ==
PROVIDERS: PCP Family Medicine; Visit Provider Dermatology
DX: C4A.9 Merkel cell carcinoma, unspecified (principal); L21.8 Other seborrheic dermatitis; L82.1 Other seborrheic keratosis; L58.9 Radiodermatitis, unspecified; D48.5 Neoplasm of uncertain behavior of skin
CPT/HCPCS: 11102; 99214

== ENCOUNTER 2025-06-01 12:42 | Outpatient (CLI) | payer MEDICAID, SELFPAY ==
[2024-12-11 15:43] VITALS: BP 152/84; BMI 39.8
[2025-06-01 13:22] LABS: Estmated Average Glucose 203; Hemoglobin A1C 8.7 % (4.0-6.0)
[2025-06-01 13:26] LABS: Alanine Aminotransferase 35 U/L (0-41); Albumin Level 4.4 g/dL (3.5-5.2); Alkaline Phosphatase 110 U/L (40-130); Anion Gap 14.6 (5-19); Aspartate Amino Transferase 22 U/L (0-40); Blood Urea Nitrogen 12 mg/dL (6-20); Calcium 9.2 mg/dL (8.5-10.5); Carbon Dioxide 27 mmol/L (22-29); Chloride 102 mmol/L (98-107); Cholesterol 95 mg/dL (0-200); Globulin 2.5 g/dL (1.3-4.6); Glucose 232 mg/dL (65-115); HDL Cholesterol 30 mg/dL (60-100); Osmolality Calculated 295 mOsm/kg (285-295); Potassium 4.6 mmol/L (3.5-5.1); Sodium 139 mmol/L (136-145); Total Protein 6.9 g/dL (6.6-8.7); Triglycerides 178 mg/dL (0-150)
[2025-06-01 13:31] LABS: Creatinine Urine, Random 359 mg/dL (39-259); Microalbum Creatinine Ratio Ur 8 mg/dL (0-20)
== END 2025-06-01 12:43 | disposition home or self-care (01) ==
PROVIDERS: PCP Family Medicine; Visit Provider Internal Medicine
DX: E11.9 Type 2 diabetes mellitus without complications (principal)
CPT/HCPCS: 36415; 80053; 80061; 82044; 83036

== ENCOUNTER → 2025-06-04 10:39 | Outpatient (BNVA) | payer MEDICAID, SELFPAY ==
[2025-06-04 16:52] VITALS: BP 128/82; BMI 38.2
== END ==
PROVIDERS: PCP Family Medicine; Visit Provider Internal Medicine
DX: I25.118 Atherosclerotic heart disease of native coronary artery with other forms of angina pectoris (principal); I25.5 Ischemic cardiomyopathy; M75.92 Shoulder lesion, unspecified, left shoulder; R06.01 Orthopnea; E11.43 Type 2 diabetes mellitus with diabetic autonomic (poly)neuropathy; E11.65 Type 2 diabetes mellitus with hyperglycemia; G47.00 Insomnia, unspecified; R23.8 Other skin changes; E78.2 Mixed hyperlipidemia; E11.59 Type 2 diabetes mellitus with other circulatory complications; Z87.19 Personal history of other diseases of the digestive system; E11.22 Type 2 diabetes mellitus with diabetic chronic kidney disease; N18.32 Chronic kidney disease, stage 3b; R14.0 Abdominal distension (gaseous); R63.5 Abnormal weight gain
CPT/HCPCS: 99214

== ENCOUNTER → 2025-06-23 07:43 | Outpatient (BNVA) | payer MEDICAID, SELFPAY ==
[2025-06-04 16:52] VITALS: BP 128/82; BMI 38.2
== END ==
PROVIDERS: PCP Family Medicine; Visit Provider Anesthesiology Pain Medicine
DX: M51.16 Intervertebral disc disorders with radiculopathy, lumbar region (principal); M47.816 Spondylosis without myelopathy or radiculopathy, lumbar region; G89.29 Other chronic pain
CPT/HCPCS: 99214

== ENCOUNTER → 2025-06-29 07:49 | Outpatient (BNVA) | payer MEDICAID, SELFPAY ==
[2025-06-29 08:25] VITALS: BP 128/82; BMI 38.2
== END ==
PROVIDERS: PCP Family Medicine; Visit Provider Anesthesiology Pain Medicine
DX: M79.10 Myalgia, unspecified site (principal); M47.816 Spondylosis without myelopathy or radiculopathy, lumbar region; M51.16 Intervertebral disc disorders with radiculopathy, lumbar region; G89.29 Other chronic pain
CPT/HCPCS: 20553; 99214; J1010; J3490

== ENCOUNTER 2025-07-17 14:01 | Outpatient (CLI) | payer MEDICAID, SELFPAY ==
[2025-06-29 08:25] VITALS: BP 128/82; BMI 38.2
--- NOTE | 2025-07-17 14:30 | MRR_ITS ---
PROCEDURE INFORMATION: Exam: MR Lumbar Spine Without and With Contrast Exam date and time: 07/17/2025 2:34 PM Age: 54 years old Clinical indication: Low back pain; Prior surgery; Surgery date: 6+ months; Surgery type: Right breast; [place] cell RT breast region; Additional info: M47.816 - spondylosis without myelopathy or radiculopathy. . . TECHNIQUE: Imaging protocol: Magnetic resonance imaging of the lumbar spine without and with contrast. Contrast material: MULTIHANCE; Contrast volume: 20 ml; Contrast route: INTRAVENOUS (IV); COMPARISON: CT lumbar spine wo con* [id number] 12/01/2024 10:19 PM FINDINGS: Bones/joints: The spine is imaged from T11 through S3. AP alignment is normal. There is mild hyperlordotic lumbar curvature. Congenitally short pedicles are seen from L2 through L4. There is no indication of fracture or bone marrow replacement. A hemangioma is noted within the L3 vertebral body centrum. To the extent visible the paraspinal soft tissues appear normal. [employer] view of the cervical and thoracic spine shows normal alignment and curvature. There is no visible fracture or bone marrow replacement. Loss of T8 vertebral body height is seen consistent with an old injury. A C5-C6 disc protrusion is suggested with some cord contact. Spinal cord: Visualized cord, conus medullaris and cauda equina are unremarkable without compression. T11-T12: T11-12: Sagittal images only. Disc height is normal. There is no disc protrusion, foraminal stenosis, or neural impingement. T12-L1: Sagittal images only: Disc height is normal. There is no disc protrusion, foraminal stenosis, or neural impingement. L1-L2: Disc height is normal. There is no disc protrusion, foraminal stenosis, or neural impingement. L2-L3: Normal except for minimal facet arthropathy. There is no neural impingement. L3-L4: Normal disc height. A shallow disc bulge is present. A left far lateral annular fissure is suggested. There is mild facet hypertrophy. The thecal sac diameter midline is narrowed to 6.6 mm with mild effacement of the subarachnoid space but no visible neural impingement. The L3 neural foramina are patent. L4-L5: Disc height is normal. There is a shallow disc bulge and moderate facet and ligament hypertrophy. Thecal sac diameter midline is narrowed to 9.8 mm. Bilateral L5 subarticular root impingement is suggested. The L4 neural foramina are remarkable for stenosis on the left due to facet hypertrophy with mild left L4 epiradicular fat effacement. L5-S1: Slight disc space narrowing is seen. The posterior annulus is intact. There is mild facet arthropathy. There is no visible subarticular root compromise. The spondylosis does result in left L5 epiradicular fat effacement. Soft tissues: See Bones/joints finding. MR/MR lumbar spine wo/w con [id number] IMPRESSION: 1. Congenitally short pedicles. 2. L4-L5 spondylosis with bilateral L5 subarticular root impingement and facet mediated left L4 epiradicular fat effacement. 3. Mild L5-S1 spondylosis resulting in left L5 epiradicular fat effacement.
[2025-07-17] MEDS: gadobenate dimeglumine 20 mL vial IV (15:02)
== END 2025-07-17 14:02 | disposition home or self-care (01) ==
LOC: RAD 14:03
PROVIDERS: PCP Family Medicine; Visit Provider Anesthesiology Pain Medicine
DX: M47.26 Other spondylosis with radiculopathy, lumbar region (principal); Q76.49 Other congenital malformations of spine, not associated with scoliosis; M47.897 Other spondylosis, lumbosacral region
CPT/HCPCS: 72158

== ENCOUNTER → 2025-07-28 09:43 | Outpatient (BNVA) | payer MEDICAID, SELFPAY ==
[2025-06-29 08:25] VITALS: BP 128/82; BMI 38.2
== END ==
PROVIDERS: PCP Family Medicine; Visit Provider Anesthesiology Pain Medicine
DX: M51.16 Intervertebral disc disorders with radiculopathy, lumbar region (principal); M47.816 Spondylosis without myelopathy or radiculopathy, lumbar region; G89.29 Other chronic pain
CPT/HCPCS: 99214

== ENCOUNTER → 2025-07-30 14:24 | Outpatient (BNVA) | payer MEDICAID, SELFPAY ==
[2025-06-29 08:25] VITALS: BP 128/82; BMI 38.2
== END ==
PROVIDERS: PCP Family Medicine; Visit Provider Orthopaedic Surgery
DX: Z01.818 Encounter for other preprocedural examination (principal); M47.816 Spondylosis without myelopathy or radiculopathy, lumbar region; M48.062 Spinal stenosis, lumbar region with neurogenic claudication; M51.16 Intervertebral disc disorders with radiculopathy, lumbar region; M54.50 Low back pain, unspecified; E11.65 Type 2 diabetes mellitus with hyperglycemia
CPT/HCPCS: 72110; 99204; 99214